=== PATIENT | male | born 1965 | race Caucasian/White ===

== ENCOUNTER → 2017-09-01 15:52 | Outpatient (CLI) | payer MEDICARE, MEDICAID, SELFPAY | PROVIDERS: Family Provider Internal Medicine; PCP Internal Medicine; Visit Provider Urology | DX: Z12.5 Encounter for screening for malignant neoplasm of prostate (principal) | CPT/HCPCS: 36415; 84153; G0103 ==

== ENCOUNTER → 2019-10-10 11:42 | Outpatient (CLI) | payer MEDICARE, MEDICAID, SELFPAY ==
[2019-10-07 10:49] VITALS: BMI 24.1
--- NOTE | 2019-10-10 11:44 | CT_ITS ---
STUDY: CTA OF THE ABDOMINAL AORTA . REASON FOR EXAM: Male, 53 years old. Left Leg edema, r/o May Thurner syndrome. RADIATION DOSAGE (If Supplied By Facility): CTDIvol = ( 14.34 ) mGy, DLP = ( 359.96 ) mGycm TECHNIQUE: Axial CT angiography multi-detector data acquisition was obtained from the iliac crests to the symphysis pubis following intravenous administration of 100cc ISOVUE 370. Axial images and MIP images were reconstructed from the axial data set. Post-processing of the angiographic images was performed, with multiplanar reformation and 3D reconstruction. Individualized dose optimization techniques were used for this CT. TECHNICAL QUALITY: Good COMPARISON: None. Descriptors of Narrowing: None (0%) Mild (< 50%) Moderate (50-70%) Severe (70-90%) Subtotal/Total Occlusion (90-100%) Non-Evaluable (technically non-diagnostic FINDINGS: There is a small hiatal hernia. There is a 2.5 cm x 2 cm hypodense nodule in the anterior aspect of the left lobe of the liver with peripheral enhancement suggestive of hemangioma. Small bilateral renal cysts more prominent on the left side. Small umbilical hernia containing fat. Small to moderate sized left inguinal hernia containing fat. Abdominal aorta: No demonstrated narrowing. Celiac and superior mesenteric arteries: No demonstrated narrowing. Inferior mesenteric artery: No demonstrated narrowing. Right renal artery(arteries): No demonstrated narrowing. Left renal artery(arteries): No demonstrated narrowing. Right common iliac artery: No demonstrated narrowing. There is no evidence of compression of the left common iliac vein by the right common iliac artery. Right external iliac artery: No demonstrated narrowing. Right internal iliac artery: No demonstrated narrowing. Left common iliac artery: No demonstrated narrowing. Left external iliac artery: No demonstrated narrowing. Left internal iliac artery: No demonstrated narrowing. CT/CT ANGIO ABD&PEL W/O&W/DYE IMPRESSION: Normal abdominal aorta There is no evidence of compression of the left common iliac vein by the right common iliac artery.. Electronically Signed: Jorge Gan, at 12:42 EDT , Service support ,
--- NOTE | 2019-10-10 11:44 | VDLE_ITS ---
Reason For Study: Swelling RIGHT LEFT GSV is normal. GSV is normal. CFV is compressible, spontaneous, phasic, CFV is compressible, spontaneous, phasic, competent and demonstrates normal competent, and demonstrates normal augmentation. augmentation. FV is compressible, spontaneous, phasic, FV is compressible, spontaneous, phasic, competent and demonstrates normal competent and demonstrates normal augmentation. augmentation. POP V is compressible, spontaneous, phasic, POP V is compressible, spontaneous, phasic, competent and demonstrates normal competent and demonstrates normal augmentation. augmentation. T/P Trunk is compressible. T/P Trunk is compressible. PTV is compressible. PTV is compressible. RT PerV is compressible. LT PerV is compressible. Procedure Exam performed in department. A preliminary report was called and/or faxed to [facility]. Interpretation Summary Deep veins of the lower extremities are bilaterally patent and compressible segmentally. There is no evidence of deep vein thrombosis on either side. Valvular competence appears intact within the proximal deep venous systems bilaterally. The great saphenous veins appear bilaterally patent and compressible segmentally. Ordering Physician: Kiran Broussard Referring Physician: Taylor Enrique M.D. Performed By: Buddy Springer MD
[2019-10-10 12:48] LABS: Absolute Lymphocyte Count 1.67 X10^3/uL (0.83-4.51); Absolute Neutrophil Count 3.8 X10^3/uL (2.0-7.7); Basophil# 0.05 X10^3/uL; Basophil% 0.8 % (0-1); Eosinophil# 0.04 X10^3/uL; Eosinophils% 0.6 % (0-5); Hematocrit 49.9 % (40-54); Hemoglobin 16.9 g/dL (13.0-16.5); Lymphocyte # 1.67 X10^3/ul (4.0); Lymphocyte % 27.1 % (19-41); Mean Corp Hgb Conc 33.9 g/dL (32-36); Mean Corpuscular Hgb 29.9 pg (27.0-32.0); Mean Corpuscular Volume 88.3 fL (80-94); Mean Platelet Vol. 10.3 fl (6.2-12.0); Monocyte# 0.56 X10^3/uL; Monocyte% 9.1 % (0-10); NRBC Flagged by Analyzer 0 % (0-5); Neutrophil # 3.83 X10^3/uL (2.7-7.7); Neutrophil % 62.1 % (47-70); Platelet Count 300 K/mm3 (150-450); RBC Distribution Width CV 12.7 % (11.6-14.6); RBC Distribution Width SD 40.7 fl (35.1-43.9); Red Blood Count 5.65 M/mm3 (4.6-6.2); White Blood Count 6.2 K/mm3 (4.4-11.0)
[2019-10-10 13:00] LABS: AST(SGOT) 20 U/L (15-37); Alanine Aminotransfer ALT/SGPT 29 U/L (16-61); Albumin, Serum 3.8 g/dL (3.2-5.0); Alkaline Phosphatase 100 U/L (45-117); Anion Gap 3 (5-15); BUN 10 mg/dL (7-18); BUN/Creat Ratio 11.5 RATIO (10-20); Calcium,Total 9.1 mg/dL (8.5-10.1); Chloride 102 mmol/L (98-107); Creatinine, Serum 0.87 mg/dL (0.70-1.30); EST Glomerular Filtration Rate 97 mL/min (>60); Est Glom Filt Rate - Afr Amer 117 mL/min (>60); Globulin 3.7 g/dL (2.2-4.2); Glucose 94 mg/dL (74-106); Potassium 3.9 mmol/L (3.5-5.1); Protein, Total 7.5 g/dL (6.4-8.2); Sodium Level 135 mmol/L (136-145); T4 Total, Thyroxin 12.9 ug/dL (4.5-12.1)
== END ==
PROVIDERS: PCP Internal Medicine; Referring Provider Internal Medicine Cardiovascular Disease; Visit Provider Internal Medicine Cardiovascular Disease
DX: R60.0 Localized edema (principal); I10 Essential (primary) hypertension; Q21.1 Atrial septal defect; Q24.9 Congenital malformation of heart, unspecified
CPT/HCPCS: 36415; 74174; 80053; 84436; 84443; 85025; 93970; Q9967

== ENCOUNTER → 2019-11-08 10:57 | Outpatient (CLI) | payer MEDICARE, MEDICAID, SELFPAY ==
[2019-10-07 10:49] VITALS: BMI 24.1
--- NOTE | 2019-11-08 10:58 | ECHOD_ITS ---
Reason For Study: CONGENITAL HEART DISEASE Procedure This was a 2D Doppler, Color Flow transthoracic echocardiogram. The study was technically difficult. Exam performed in department. Left Ventricle Normal LV size. Left ventricular systolic function is normal. The estimated ejection fraction is 65 %. Diastolic function is indeterminate. No regional wall motion abnormalities noted. Right Ventricle Normal RV size. Normal systolic function. Atria Normal left atrium. Normal right atrium. Probable chiari network. 2D echocardiographic findings compatible with atrial septal defect repair. No doppler evidence for ASD. Bubble contrast study negative for right to left interatrial shunt. Mitral Valve There is no mitral annular calcification. Normal mitral valve. Mild (1+) mitral valve insufficiency. Tricuspid Valve Normal tricuspid valve. Trivial tricuspid valve insufficiency. Right ventricular systolic pressure estimated to be 27 mmHg. Aortic Valve Trisinus/trileaflet aortic valve. Mild focal aortic valve thickening. Pulmonic Valve The pulmonic valve is not well visualized. Trivial pulmonic valve insufficiency. Great Vessels Normal sized aortic root. Pericardium/Pleural No pericardial effusion. MMode/2D Measurements & Calculations RVDd: 3.5 cm Ao root diam: 2.8 cm LAV(MOD-bp): 26.3 ml LAV(MOD-bp) Indexed: 17.1 ml/m2 LAV(MOD-sp2): 17.9 ml LAV(MOD-sp4): 30.8 ml LA dimension(2D): 3.8 cm LA A4 area: 13.7 cm2 RA A4 area: 8.2 cm2 Time Measurements MV dec time: 0.23 sec Doppler Measurements & Calculations MV E max deandre: 76.7 cm/sec Lat Peak E' Deandre: 8.8 cm/sec Med Peak E' Deandre: 5.0 cm/sec MV A max deandre: 85.4 cm/sec E/E' lat: 8.7 E/E' med: 15.2 MV E/A: 0.90 Ao V2 max: 114.6 cm/sec LV V1 max: 110.4 cm/sec PA V2 max: 100.0 cm/sec Ao max P.3 mmHg LV V1 max P.9 mmHg PI end-d deandre: 159.4 cm/sec TR max deandre: 217.3 cm/sec TR max P.9 mmHg Interpretation Summary The study was technically difficult. Left ventricular systolic function is normal. The estimated ejection fraction is 65 %. Probable chiari network. Mild (1+) mitral valve insufficiency. Trivial tricuspid valve insufficiency. Mild focal aortic valve thickening. Trivial pulmonic valve insufficiency. Right ventricular systolic pressure estimated to be 27 mmHg. Diastolic function is indeterminate. 2D echocardiographic findings compatible with atrial septal defect repair. Bubble contrast study negative for right to left interatrial shunt. Ordering Physician: Kiran Broussard Referring Physician: CINTIA ARORA Performed By: Marianna Spencer, SEJALCS, RVT
[2019-11-08 15:09] LABS: Anion Gap 5 (5-15); BUN 13 mg/dL (7-18); BUN/Creat Ratio 16.8 RATIO (10-20); Calcium,Total 9.1 mg/dL (8.5-10.1); Chloride 105 mmol/L (98-107); Creatinine, Serum 0.77 mg/dL (0.70-1.30); EST Glomerular Filtration Rate 111 mL/min (>60); Est Glom Filt Rate - Afr Amer 134 mL/min (>60); Glucose 83 mg/dL (74-106); Potassium 3.8 mmol/L (3.5-5.1); Sodium Level 141 mmol/L (136-145); T4 Total, Thyroxin 10.7 ug/dL (4.5-12.1); Thyroid Stim Hormone (TSH) 0.64 uIU/mL (0.358-3.74)
== END ==
PROVIDERS: PCP Internal Medicine; Referring Provider Internal Medicine Cardiovascular Disease; Visit Provider Internal Medicine Cardiovascular Disease
DX: Q24.9 Congenital malformation of heart, unspecified (principal); I10 Essential (primary) hypertension; R60.0 Localized edema; Q21.1 Atrial septal defect
CPT/HCPCS: 36415; 80048; 84436; 84443; 93306

== ENCOUNTER → 2019-11-18 11:12 | Outpatient (CLI) | payer MEDICARE, SELFPAY ==
[2019-11-18 10:09] VITALS: BMI 25.2
[2019-11-18 13:26] LABS: Anion Gap 5 (5-15); BUN 12 mg/dL (7-18); BUN/Creat Ratio 15.7 RATIO (10-20); Calcium,Total 9.1 mg/dL (8.5-10.1); Chloride 105 mmol/L (98-107); Creatinine, Serum 0.77 mg/dL (0.70-1.30); EST Glomerular Filtration Rate 112 mL/min (>60); Est Glom Filt Rate - Afr Amer 135 mL/min (>60); Glucose 84 mg/dL (74-106); Potassium 3.5 mmol/L (3.5-5.1); Sodium Level 140 mmol/L (136-145)
== END ==
PROVIDERS: PCP Internal Medicine; Referring Provider Internal Medicine Cardiovascular Disease; Visit Provider Internal Medicine Cardiovascular Disease
DX: I10 Essential (primary) hypertension (principal); Q24.9 Congenital malformation of heart, unspecified; Q21.1 Atrial septal defect; R60.9 Edema, unspecified
CPT/HCPCS: 36415; 80048

== ENCOUNTER → 2020-01-31 10:49 | Outpatient (CLI) | payer MEDICARE, SELFPAY ==
[2019-11-18 10:09] VITALS: BMI 25.2
--- NOTE | 2020-01-31 10:49 | ART_ITS ---
Reason For Study: Leg swelling Procedure A bilateral lower extremity continuous wave Doppler with analog waveform analysis,segmental pressures,and ankle brachial indexes without exercise. Left Segmental Pressures Left brachial= 119mmHg. Left posterior tibial artery = 148mmHg. Left dorsalis pedis artery = 146mmHg. Left digit = 110 mmHg. The left dorsalis pedis waveforms are triphasic. The left posterior tibial artery waveforms are triphasic. Right Segmental Pressures Right brachial= 118mmHg. Right posterior tibial artery = 115mmHg. Right dorsalis pedis artery = 120mmHg. Right digit = 70 mmHg. The right dorsalis pedis waveforms are triphasic. The right posterior tibial artery waveforms are triphasic. Indices The right ankle brachial index by the dorsalis pedis is 1.01. The right ankle brachial index by the posterior tibial artery is 0.97. The right digital-brachial index is 0.59. The left ankle brachial index by the dorsalis pedis is 1.23. The left ankle brachial index by the posterior tibial artery is 1.24. The left digital-brachial index is 0.92. Interpretation Summary Normal bilateral lower extremity ankle-brachial indices and triphasic Doppler waveforms at rest Normal bilateral lower extremity volume pulse recordings with maintained digital waveforms bilaterally Ordering Physician: Tom Herbert Referring Physician: Taylor Enrique M.D. Performed By: Xochilt Olivas RVT and Student
[2020-01-31 13:13] LABS: ALB/GLOB Ratio 1.1 RATIO (0.9-2.4); AST(SGOT) 10 U/L (15-37); Alanine Aminotransfer ALT/SGPT 24 U/L (16-61); Albumin, Serum 3.8 g/dL (3.2-5.0); Alkaline Phosphatase 95 U/L (45-117); Anion Gap 4 (5-15); BUN 15 mg/dL (7-18); BUN/Creat Ratio 17.9 RATIO (10-20); Calcium,Total 8.9 mg/dL (8.5-10.1); Chloride 104 mmol/L (98-107); Creatinine, Serum 0.84 mg/dL (0.70-1.30); EST Glomerular Filtration Rate 101 mL/min (>60); Est Glom Filt Rate - Afr Amer 122 mL/min (>60); Globulin 3.5 g/dL (2.2-4.2); Glucose 95 mg/dL (74-106); Potassium 3.5 mmol/L (3.5-5.1); Protein, Total 7.3 g/dL (6.4-8.2); Sodium Level 139 mmol/L (136-145)
== END ==
PROVIDERS: PCP Internal Medicine; Referring Provider Surgery; Visit Provider Surgery
DX: M79.661 Pain in right lower leg (principal); M79.662 Pain in left lower leg; M79.89 Other specified soft tissue disorders; I10 Essential (primary) hypertension; Q24.9 Congenital malformation of heart, unspecified
CPT/HCPCS: 36415; 80053; 93923

== ENCOUNTER 2020-02-24 13:00 | Outpatient (RCR) | payer MEDICARE, MEDICAID, SELFPAY ==
[2019-11-18 10:09] VITALS: BMI 25.2
[2020-02-14 10:31] VITALS: BP 129/73; PULSE 78; RESP 16; TEMP 36.8; BMI 24.1
--- NOTE | 2020-02-14 12:23 | PCM.WC.HP ---
(1) Leg swelling Status: Chronic Current Visit: Yes Code(s): M79.89 - Other specified soft tissue disorders (2) Leg edema Status: Chronic Current Visit: Yes Code(s): R60.0 - Localized edema (3) Atrial septal defect Status: Chronic Current Visit: No Code(s): Q21.1 - Atrial septal defect (4) Cervical spine disease Status: Chronic Current Visit: No Code(s): M48.9 - Spondylopathy, unspecified (5) Developmental disability Status: Chronic Current Visit: Yes Code(s): F89 - Unspecified disorder of psychological development (6) Barretts esophagus Status: Chronic Current Visit: No Code(s): K22.70 - Milligan's esophagus without dysplasia (7) Congenital heart disease Status: Chronic Current Visit: No Code(s): Q24.9 - Congenital malformation of heart, unspecified Comment: Fixed hole in heart 1978 (8) Essential hypertension Status: Chronic Current Visit: No Code(s): I10 - Essential (primary) hypertension History of Present Illness Date of Service: 02/14/20 Chief Complaint: Bilateral lower extremity swelling and edema History of Wound: This is a 54-year-old white male with mild developmental disabilities. He is accompanied by his sister, Marika. The patient has suffered from chronic swelling and edema in his lower extremities for many months. It has become progressively more severe. Only several weeks ago, the swelling and edema were so severe that fluid was actually dripping from the pores of his lower extremities. The patient has been referred by his primary care physician, Dr. Kiran Broussard. Dr. Broussard has recently increased the patient's diuretic medications, which have resulted in some improvement in the lower extremity swelling. It is ascertained that the patient often sleeps in a recliner with his legs in a dependent position. He is not very active. During daytime hours, he receives care in day-hab, where he spends long hours sitting ideally. He does have attentive family members, including 2 sisters, who often accompany him on leisurely walks. Past Medical History Past Medical History: Chronic Problems (Last Reviewed 11/18/19 @ 10:15 by Marcy De La Cruz) Leg swelling (Chronic) Leg edema (Chronic) Atrial septal defect (Chronic) Cervical spine disease (Chronic) Developmental disability (Chronic) Barretts esophagus (Chronic) Congenital heart disease (Chronic) Fixed hole in heart 1978 Essential hypertension (Chronic) Past Medical History: The patient suffers from congenital heart disease, and atrial septal defect, hypertension, Milligan's esophagus, and developmental disabilities. His history is said to be negative for myocardial infarction, diabetes mellitus, cerebrovascular accident, pulmonary disease, renal disease, hyperlipidemia, and thyroid disease. Surgical History: - - The patient has previously undergone atrial septal defect repair and cervical spinal surgery. Allergies/Adverse Reactions: Allergies Penicillins Adverse Reaction (Severe, Verified 02/14/20 10:49) SOB Home Medications: Ambulatory Orders Medication Instructions Recorded cholecalciferol (vitamin D3) 25 25 mcg PO DAILY 10/04/19 mcg (1,000 unit) capsule esomeprazole magnesium 40 mg 40 mg PO DAILY 10/04/19 capsule,delayed release fluticasone propionate 50 1 spray INTRANASAL DAILY 10/04/19 mcg/actuation nasal spray,suspension metoprolol tartrate 50 1 tab PO DAILY 10/04/19 mg-hydrochlorothiazide 25 mg tablet montelukast 10 mg tablet 10 mg PO QHS 10/04/19 multivitamin 1 tab PO DAILY 10/04/19 potassium chloride 10 mEq 10 meq PO DAILY tab 11/18/19 tablet,extended release torsemide 20 mg tablet 20 mg PO DAILY #30 tab 02/02/20 - Family History Paternal Family History: Family History (Last Reviewed 11/18/19 @ 10:15 by Marcy De La Cruz) Mother Hypertension Father Heart disease Sister CVA (cerebral vascular accident) - - The patient's father is 84 years of age and suffers from cardiac disease. The patient's mother at the age of 70 from a cerebrovascular accident. Social History: The patient lives alone, no family members are very attentive to his needs. He does not smoke or consume alcoholic beverages. Lives: Alone Smoking Status: Never smoker Tobacco Use: Non-smoker Alcohol: None Drugs: None Review of Systems Constitutional: Denies: Chills, Fever, Weight Change Eyes: Denies: Pain, Vision Change HEENT: Denies: Difficulty Hearing, Difficulty Swallowing, Sinus Congestion Cardiovascular: Denies: Chest Pain, Palpitations Respiratory: Denies: Cough, Shortness of Breath Gastrointestinal: Denies: Diarrhea, Nausea, Vomiting Genitourinary: Denies: Dysuria, Hematuria Neurological: Reports: - - The patient suffers from developmental disabilities. Endocrine: Denies: Heat/ Cold Intolerance, Polydipsia, Polyuria Hematologic/ Lymphatic: Denies: Easy Bruising, Easy Bleeding - Physical Exam Vital Signs Temp Pulse Resp BP 98.3 F 78 16 129/73 H 02/14/20 10:31 02/14/20 10:31 02/14/20 10:31 02/14/20 10:31 General: Alert, Oriented x3, Cooperative, No apparent distress, Well developed, Well nourished, - - The patient is pleasant and cooperative. While he does suffer from developmental disabilities, he is interactive and appropriate. He responds appropriately to verbal questioning. He appears to be relatively high functioning. The patient is short in stature. HEENT: Atraumatic, PERRLA, EOMI, Normocephalic Oral: Moist Mucosa Neck: Supple, No JVD, Negative Carotid Bruits, Negative Hepatojugular Reflux, No Nodes, No Nuchal Rigidity, Trachea Midline Lungs: Clear to auscultation, Normal air movement, No rhonchi, No wheeze, No rales Cardiovascular: Regular rate, Regular Rhythm, Normal S1, Normal S2, No murmurs Abdomen: Soft, Non Tender, Non-Distended Extremities: No clubbing, No cyanosis, No Calf Tenderness, - - Moderate swelling and edema are noted in the patient's lower extremities bilaterally. Scattered small varicosities are noted, particularly near the ankles. There are no open wounds or ulcerations. There are no significant skin changes. Skin: No rashes, No breakdown Wound Measurements and Assessment WC - Nurse 1 - General Ulcer Measurement Start: 02/14/20 10:30 Freq: Status: Active Protocol: Activity Type Activity Date Activity User E-Sign Co-Sign Detail Recorded Client Recorded Date Recorded By Document 02/14/20 10:31 [facility] [id number] 02/14/20 10:45 [facility] 02/14/20 10:31 Wound Center Nurse 1 [Edema Assessment] -Lower Limb Edema Present Yes -Right Calf (cm) 33.6 -Right Ankle (cm) 24.2 -Left Calf (cm) 33 -Left Ankle (cm) 27.5 WC - Nurse 2 - General Ulcer CM Notes Start: 02/14/20 10:30 Freq: Status: Active Protocol: Activity Type Activity Date Activity User E-Sign Co-Sign Detail Recorded Client Recorded Date Recorded By Document 02/14/20 11:01 PL [id number] 02/14/20 11:12 PL 02/14/20 11:01 Pain Scale: 0-10 Numeric [Pain] -Is Patient Pain Free? Yes WC - Nurse 3 - General Ulcer D/C NN Start: 02/14/20 10:30 Freq: Status: Active Protocol: Activity Type Activity Date Activity User E-Sign Co-Sign Detail Recorded Client Recorded Date Recorded By Document 02/14/20 11:32 DL [id number] 02/14/20 11:33 DL 02/14/20 11:32 Wound Care Nurse 3 [Compression Applied] Left -Lotion applied to leg before No compression wrap -Multi-Layered Wrap Application 3M Double Layer Right -Lotion applied to leg before No compression wrap -Multi-Layered Wrap Application 3M Double Layer [Post Procedure Tolerated] -Treatment Response Procedure Tolerated Well Pain Scale: 0-10 Numeric [Pain] -Is Patient Pain Free? Yes - Visit Discharge [Visit Discharge Information] -Discharge Condition Stable -Ambulatory Status Ambulatory -Transportation Private Auto Musculoskeletal: No Muscle Wasting Neurological: Cranial nerves II-XII grossly intact, Neuro grossly intact Psych/Mental Status: Normal Affect, Appropriate, - - Patient is appropriate and conversant. He does appear to have mild developmental disabilities. Debridement Note Post-Debridement Measurements/Treatment WC - Nurse 2 - General Ulcer CM Notes Start: 02/14/20 10:30 Freq: Status: Active Protocol: Activity Type Activity Date Activity User E-Sign Co-Sign Detail Recorded Client Recorded Date Recorded By Document 02/14/20 11:01 PL [id number] 02/14/20 11:12 PL 02/14/20 11:01 Pain Scale: 0-10 Numeric Is Patient Pain Free? Yes - Nurse 3 - General Ulcer D/C NN Start: 02/14/20 10:30 Freq: Status: Active Protocol: Activity Type Activity Date Activity User E-Sign Co-Sign Detail Recorded Client Recorded Date Recorded By Document 02/14/20 11:32 DL [id number] 02/14/20 11:33 DL 02/14/20 11:32 Wound Care Nurse 3 Left -Lotion applied to leg before No compression wrap -Multi-Layered Wrap Application 3M Double Layer Right -Lotion applied to leg before No compression wrap -Multi-Layered Wrap Application 3M Double Layer Treatment Response Procedure Tolerated Well Pain Scale: 0-10 Numeric Is Patient Pain Free? Yes WC - Visit Discharge Discharge Condition Stable Ambulatory Status Ambulatory Transportation Private Auto No debridement was completed today - There are no open wounds or ulcerations. Assessment/Plan Active Problems (Last Reviewed 11/18/19 @ 10:15 by Marcy De La Cruz) Leg swelling (Chronic) Leg edema (Chronic) Developmental disability (Chronic) Assessment: This is a 54-year-old male with mild developmental disabilities. He presents with swelling and edema in his lower extremities, which has been present for approximately 8 to 9 months. It has recently become more severe, and only recently such that fluid was noted to be dripping from the pores of his lower limbs. The patient typically sleeps in a recliner at night, with his legs in a dependent position. He is not very active. He spends long hours sitting ideally each day at his day-hab, where caregivers oversee his activities and wellbeing. A recent noninvasive lower extremity venous study revealed no evidence of lower extremity venous thrombosis. However, valvular competence was not assessed. A noninvasive lower extremity arterial study reveals no evidence of significant arterial occlusive disease in the patient's lower extremities. An echocardiogram has been performed, which reveals an ejection fraction of approximately 65% with no hemodynamically significant valvular heart disease. Given that the patient has previously undergone atrial septal defect repair, there is no obvious evidence of inter-arterial shunting. A CT scan of the patient's pelvis reveals no evidence of May-Thurner syndrome, with no evidence of left common iliac vein compression. Laboratory values from October 10, 2019, have been reviewed, with results as follows White blood count 6.2, hemoglobin 16.9, hematocrit 49.9, platelets 300,000. Chemistries from January 31, 2020, were as follows: Sodium 139, potassium 3.5, chloride 104, BUN 15, creatinine 0.84, glucose 95, calcium 8.9, total bilirubin 0.20, AST 10, ALT 24, total protein 7.3, albumin 3.8. Plan: We are to implement standard conservative treatment measures relative to the patient's lower extremity swelling and edema. It is likely that the patient's lower extremity swelling and edema is related to chronic dependency. The patient has been advised to sleep on a flat mattress at night. Leg elevation is to be implemented even during daytime hours. Leg elevation is to be to heart level, or higher. This should be implemented as much as possible. Prolonged idle sitting has been discouraged. Activity has been encouraged, allowing for the recruitment of the calf and foot muscle pumps, which will enhance venous and lymphatic return to the heart. Weight optimization has been recommended. We are to implement compression to the lower extremities initially by means of 3M 2 layer compression wraps, which will be applied twice weekly. We will reevaluate the patient in 1 week to assess his progress. Ultimately, once the swelling in the lower extremities has been minimized, we will consider implementing some form of long-term compression to the lower extremities, such as graduated compression stockings of 20 to 30 mmHg compression, or CircAid compression garments. It is anticipated that the patient will respond to the aforementioned measures. However, consideration may be given to the use of mechanical pneumatic compression pumps, if necessary. Influenza vaccine was not administered today. The patient is not a smoker. He stands 5 feet 1 inches tall. He weighs 128 pounds. His BMI is 24.2, which is normal.
[2020-02-17 13:17] VITALS: BP 126/71; PULSE 88; RESP 16; TEMP 36.4; BMI 24.1
[2020-02-21 09:19] VITALS: BP 121/71; PULSE 85; RESP 18; TEMP 36; BMI 24.1
--- NOTE | 2020-02-21 09:46 | PCM.WC.HP ---
(1) Leg swelling Status: Chronic Current Visit: Yes Code(s): M79.89 - Other specified soft tissue disorders (2) Leg edema Status: Chronic Current Visit: Yes Code(s): R60.0 - Localized edema (3) Atrial septal defect Status: Chronic Current Visit: No Code(s): Q21.1 - Atrial septal defect (4) Cervical spine disease Status: Chronic Current Visit: No Code(s): M48.9 - Spondylopathy, unspecified (5) Developmental disability Status: Chronic Current Visit: Yes Code(s): F89 - Unspecified disorder of psychological development (6) Barretts esophagus Status: Chronic Current Visit: No Code(s): K22.70 - Milligan's esophagus without dysplasia (7) Congenital heart disease Status: Chronic Current Visit: No Code(s): Q24.9 - Congenital malformation of heart, unspecified Comment: Fixed hole in heart 1978 (8) Essential hypertension Status: Chronic Current Visit: No Code(s): I10 - Essential (primary) hypertension History of Present Illness Date of Service: 02/21/20 Chief Complaint: Bilateral lower extremity swelling and edema History of Wound: This is a 54-year-old white male with mild developmental disabilities. He is accompanied by his sister, Marika. The patient has suffered from chronic swelling and edema in his lower extremities for many months. It has become progressively more severe. Only several weeks ago, the swelling and edema were so severe that fluid was actually dripping from the pores of his lower extremities. The patient has been referred by his primary care physician, Dr. Kiran Broussard. Dr. Broussard has recently increased the patient's diuretic medications, which have resulted in some improvement in the lower extremity swelling. It is ascertained that the patient often sleeps in a recliner with his legs in a dependent position. He is not very active. During daytime hours, he receives care in day-hab, where he spends long hours sitting ideally. He does have attentive family members, including 2 sisters, who often accompany him on leisurely walks. Past Medical History Past Medical History: Chronic Problems (Last Reviewed 11/18/19 @ 10:15 by Marcy De La Cruz) Leg swelling (Chronic) Leg edema (Chronic) Atrial septal defect (Chronic) Cervical spine disease (Chronic) Developmental disability (Chronic) Barretts esophagus (Chronic) Congenital heart disease (Chronic) Fixed hole in heart 1978 Essential hypertension (Chronic) Surgical History: - - The patient has previously undergone atrial septal defect repair and cervical spinal surgery. Allergies/Adverse Reactions: Allergies Penicillins Adverse Reaction (Severe, Verified 02/14/20 10:49) SOB Home Medications: Ambulatory Orders Medication Instructions Recorded cholecalciferol (vitamin D3) 25 25 mcg PO DAILY 10/04/19 mcg (1,000 unit) capsule esomeprazole magnesium 40 mg 40 mg PO DAILY 10/04/19 capsule,delayed release fluticasone propionate 50 1 spray INTRANASAL DAILY 10/04/19 mcg/actuation nasal spray,suspension metoprolol tartrate 50 1 tab PO DAILY 10/04/19 mg-hydrochlorothiazide 25 mg tablet montelukast 10 mg tablet 10 mg PO QHS 10/04/19 multivitamin 1 tab PO DAILY 10/04/19 potassium chloride 10 mEq 10 meq PO DAILY tab 11/18/19 tablet,extended release torsemide 20 mg tablet 20 mg PO DAILY #30 tab 02/02/20 - Family History Paternal Family History: Family History (Last Reviewed 11/18/19 @ 10:15 by Marcy De La Cruz) Mother Hypertension Father Heart disease Sister CVA (cerebral vascular accident) - - The patient's father is 84 years of age and suffers from cardiac disease. The patient's mother at the age of 70 from a cerebrovascular accident. Lives: Alone Smoking Status: Never smoker Tobacco Use: Non-smoker Alcohol: None Drugs: None Review of Systems Constitutional: Denies: Chills, Fever, Weight Change Eyes: Denies: Pain, Vision Change HEENT: Denies: Difficulty Hearing, Difficulty Swallowing, Sinus Congestion Cardiovascular: Denies: Chest Pain, Palpitations Respiratory: Denies: Cough, Shortness of Breath Gastrointestinal: Denies: Diarrhea, Nausea, Vomiting Genitourinary: Denies: Dysuria, Hematuria Endocrine: Denies: Heat/ Cold Intolerance, Polydipsia, Polyuria Hematologic/ Lymphatic: Denies: Easy Bruising, Easy Bleeding - Physical Exam Vital Signs Temp Pulse Resp BP 96.8 F L 85 18 121/71 H 02/21/20 09:19 02/21/20 09:19 02/21/20 09:19 02/21/20 09:19 General: Alert, Oriented x3, Cooperative, No apparent distress, Well developed, Well nourished, - - The patient suffers from mild developmental disability. He is, however, alert, conversant, and cooperative. HEENT: Atraumatic, PERRLA, EOMI, Normocephalic Oral: Moist Mucosa Neck: No JVD Lungs: Normal air movement Abdomen: Non-Distended Extremities: No clubbing, No cyanosis, No Calf Tenderness, - - There are no open wounds or ulcerations in the patient's lower extremities. There are no significant skin changes. The swelling and edema in the lower extremities is markedly diminished. At this juncture, there is only slight swelling and edema. There has been significant improvement within the last week. Skin: No rashes, No breakdown Wound Measurements and Assessment WC - Nurse 1 - General Ulcer Measurement Start: 02/14/20 10:30 Freq: Status: Active Protocol: Activity Type Activity Date Activity User E-Sign Co-Sign Detail Recorded Client Recorded Date Recorded By Document 02/21/20 09:19 PL [id number] 02/21/20 09:28 PL 02/21/20 09:19 Wound Center Nurse 1 [Edema Assessment] -Right Calf (cm) 33 -Point of measurement (cm from the 27 medial instep) -Right Ankle (cm) 22 -Point of Measurement (cm from the 12 medial instep) -Left Calf (cm) 31 -Point of measurement (cm from the 23 medial instep) -Left Ankle (cm) 22.5 -Point of Measurement (cm from the 11 medial instep) Musculoskeletal: No Muscle Wasting Neurological: Cranial nerves II-XII grossly intact, Neuro grossly intact Psych/Mental Status: Normal Affect, Appropriate, - - Mild developmental disability is noted. Debridement Note Post-Debridement Measurements/Treatment WC - Nurse 2 - General Ulcer CM Notes Start: 02/14/20 10:30 Freq: Status: Active Protocol: Activity Type Activity Date Activity User E-Sign Co-Sign Detail Recorded Client Recorded Date Recorded By Document 02/14/20 11:01 PL [id number] 02/14/20 11:12 PL 02/14/20 11:01 Pain Scale: 0-10 Numeric Is Patient Pain Free? Yes WC - Nurse 3 - General Ulcer D/C NN Start: 02/14/20 10:30 Freq: Status: Active Protocol: Activity Type Activity Date Activity User E-Sign Co-Sign Detail Recorded Client Recorded Date Recorded By Document 02/14/20 11:32 DL [id number] 02/14/20 11:33 DL Document 02/17/20 13:17 DL [id number] 02/17/20 13:22 DL 02/14/20 02/17/20 11:32 13:17 Wound Care Nurse 3 Left -Lotion applied to leg before No compression wrap -Multi-Layered Wrap Application Multi-Layer Comp - Left ($) -Multi-Layered Wrap Application 3M Double Layer Right -Lotion applied to leg before No compression wrap -Multi-Layered Wrap Application Multi-Layer Comp - Right ($ ) -Multi-Layered Wrap Application 3M Double Layer Treatment Response Procedure Procedure Tolerated Well Tolerated Well Pain Scale: 0-10 Numeric Is Patient Pain Free? Yes Yes WC - Visit Discharge Discharge Condition Stable Stable Ambulatory Status Ambulatory Ambulatory Transportation Private Auto Private Auto Accompanied by sister No debridement was completed today - There are no open wounds or ulcerations. Assessment/Plan Active Problems (Last Reviewed 11/18/19 @ 10:15 by Marcy De La Cruz) Leg swelling (Chronic) Leg edema (Chronic) Developmental disability (Chronic) Assessment: This is a 54-year-old male with mild developmental disabilities. He presents with swelling and edema in his lower extremities, which has been present for approximately 8 to 9 months. It has recently become more severe, and only recently such that fluid was noted to be dripping from the pores of his lower limbs. The patient typically sleeps in a recliner at night, with his legs in a dependent position. He is not very active. He spends long hours sitting ideally each day at his day-hab, where caregivers oversee his activities and wellbeing. A recent noninvasive lower extremity venous study revealed no evidence of lower extremity venous thrombosis. However, valvular competence was not assessed. A noninvasive lower extremity arterial study reveals no evidence of significant arterial occlusive disease in the patient's lower extremities. An echocardiogram has been performed, which reveals an ejection fraction of approximately 65% with no hemodynamically significant valvular heart disease. Given that the patient has previously undergone atrial septal defect repair, there is no obvious evidence of inter-arterial shunting. A CT scan of the patient's pelvis reveals no evidence of May-Thurner syndrome, with no evidence of left common iliac vein compression. Laboratory values from October 10, 2019, have been reviewed, with results as follows White blood count 6.2, hemoglobin 16.9, hematocrit 49.9, platelets 300,000. Chemistries from January 31, 2020, were as follows: Sodium 139, potassium 3.5, chloride 104, BUN 15, creatinine 0.84, glucose 95, calcium 8.9, total bilirubin 0.20, AST 10, ALT 24, total protein 7.3, albumin 3.8. Plan: We are to continue standard conservative treatment measures relative to the patient's lower extremity swelling and edema. It is likely that the patient's lower extremity swelling and edema is related to chronic dependency. The patient has been advised to sleep on a flat mattress at night. Leg elevation is to be implemented even during daytime hours. Leg elevation is to be to heart level, or higher. This should be implemented as much as possible. Prolonged idle sitting has been discouraged. Activity has been encouraged, allowing for the recruitment of the calf and foot muscle pumps, which will enhance venous and lymphatic return to the heart. Weight optimization has been recommended. We are to continue compression to the lower extremities initially by means of 3M 2 layer compression wraps, which will be applied twice weekly. We will reevaluate the patient in 1 week to assess his progress. If he continues to do well, it is anticipated that we will prescribe graduated compression stockings of 20 to 30 mmHg compression, knee-high length, within the next week or 2. This form of compression will likely be of benefit to the patient long-term, as well as the aforementioned measures already implemented. Influenza vaccine was not administered today. The patient is not a smoker. He stands 5 feet 1 inches tall. He weighs 128 pounds. His BMI is 24.2, which is normal.
[2020-02-24 13:56] VITALS: BP 125/72; PULSE 85; RESP 18; TEMP 36.4; BMI 24.1
== END 2020-02-27 23:59 ==
LOC: WC 13:00
PROVIDERS: PCP Internal Medicine; Referring Provider Internal Medicine Cardiovascular Disease; Visit Provider Surgery
DX: M79.89 Other specified soft tissue disorders (principal); R60.0 Localized edema; I10 Essential (primary) hypertension; Q21.1 Atrial septal defect; Q24.9 Congenital malformation of heart, unspecified; K22.70 Barrett's esophagus without dysplasia; Z79.899 Other long term (current) drug therapy
CPT/HCPCS: 11042; 29581; 99212; 99213; G0463

== ENCOUNTER 2020-03-13 11:00 | Outpatient (RCR) | payer MEDICARE, MEDICAID, SELFPAY ==
[2020-02-28 00:49] VITALS: BP 125/72; PULSE 85; RESP 18; TEMP 36.4
[2020-02-28 11:03] VITALS: BP 119/64; PULSE 79; RESP 16; TEMP 36.1; BMI 24.1
--- NOTE | 2020-02-28 11:27 | HP.PCM_ITS ---
(1) Leg swelling Status: Chronic Current Visit: Yes Code(s): M79.89 - Other specified soft tissue disorders (2) Leg edema Status: Chronic Current Visit: Yes Code(s): R60.0 - Localized edema (3) Atrial septal defect Status: Chronic Current Visit: No Code(s): Q21.1 - Atrial septal defect (4) Cervical spine disease Status: Chronic Current Visit: No Code(s): M48.9 - Spondylopathy, unspecified (5) Developmental disability Status: Chronic Current Visit: Yes Code(s): F89 - Unspecified disorder of psychological development (6) Barretts esophagus Status: Chronic Current Visit: No Code(s): K22.70 - Milligan's esophagus without dysplasia (7) Congenital heart disease Status: Chronic Current Visit: No Code(s): Q24.9 - Congenital malformation of heart, unspecified Comment: Fixed hole in heart 1978 (8) Essential hypertension Status: Chronic Current Visit: No Code(s): I10 - Essential (primary) hypertension History of Present Illness Date of Service: 02/28/20 Chief Complaint: Bilateral lower extremity swelling and edema History of Wound: This is a 54-year-old white male with mild developmental disabilities. He is accompanied by his sister, Marika. The patient has suffered from chronic swelling and edema in his lower extremities for many months. It has become progressively more severe. Only several weeks prior to presentation, the swelling and edema were so severe that fluid was actually dripping from the pores of his lower extremities. The patient was referred by his primary care physician, Dr. Kiran Broussard. Dr. Broussard had recently increased the patient's diuretic medications, which resulted in some improvement in the lower extremity swelling. It is ascertained that the patient often sleeps in a recliner with his legs in a dependent position. He is not very active. During daytime hours, he receives care in day-hab, where he spends long hours sitting ideally. He does have attentive family members, including 2 sisters, who often accompany him on leisurely walks. Past Medical History Past Medical History: Chronic Problems (Last Reviewed 11/18/19 @ 10:15 by Marcy De La Cruz) Leg swelling (Chronic) Leg edema (Chronic) Atrial septal defect (Chronic) Cervical spine disease (Chronic) Developmental disability (Chronic) Barretts esophagus (Chronic) Congenital heart disease (Chronic) Fixed hole in heart 1978 Essential hypertension (Chronic) Surgical History: - - The patient has previously undergone atrial septal defect repair and cervical spinal surgery. Allergies/Adverse Reactions: Allergies Penicillins Adverse Reaction (Severe, Verified 02/14/20 10:49) SOB Home Medications: Ambulatory Orders Medication Instructions Recorded cholecalciferol (vitamin D3) 25 25 mcg PO DAILY 10/04/19 mcg (1,000 unit) capsule esomeprazole magnesium 40 mg 40 mg PO DAILY 10/04/19 capsule,delayed release fluticasone propionate 50 1 spray INTRANASAL DAILY 10/04/19 mcg/actuation nasal spray,suspension metoprolol tartrate 50 1 tab PO DAILY 10/04/19 mg-hydrochlorothiazide 25 mg tablet montelukast 10 mg tablet 10 mg PO QHS 10/04/19 multivitamin 1 tab PO DAILY 10/04/19 potassium chloride 10 mEq 10 meq PO DAILY tab 11/18/19 tablet,extended release torsemide 20 mg tablet 20 mg PO DAILY #30 tab 02/27/20 - Family History Paternal Family History: Family History (Last Reviewed 11/18/19 @ 10:15 by Marcy De La Cruz) Mother Hypertension Father Heart disease Sister CVA (cerebral vascular accident) - - The patient's father is 84 years of age and suffers from cardiac disease. The patient's mother at the age of 70 from a cerebrovascular accident. Smoking Status: Never smoker Tobacco Use: Non-smoker Review of Systems Constitutional: Reports: - - Patient suffers from mild developmental disabilities. Denies: Chills, Fever, Weight Change Eyes: Denies: Pain, Vision Change HEENT: Denies: Difficulty Hearing, Difficulty Swallowing, Sinus Congestion Cardiovascular: Denies: Chest Pain, Palpitations Respiratory: Denies: Cough, Shortness of Breath Gastrointestinal: Denies: Diarrhea, Nausea, Vomiting Genitourinary: Denies: Dysuria, Hematuria Endocrine: Denies: Heat/ Cold Intolerance, Polydipsia, Polyuria Hematologic/ Lymphatic: Denies: Easy Bruising, Easy Bleeding - Physical Exam Vital Signs Temp Pulse Resp BP 96.9 F L 79 16 119/64 02/28/20 11:03 02/28/20 11:03 02/28/20 11:03 02/28/20 11:03 General: Alert, Oriented x3, Cooperative, No apparent distress, Well developed, Well nourished, - - Patient suffers from mild developmental disabilities HEENT: Atraumatic, PERRLA, EOMI, Normocephalic Oral: Moist Mucosa Neck: No JVD Lungs: Normal air movement Abdomen: Non-Distended Extremities: No clubbing, No cyanosis, No Calf Tenderness, - - There is no significant swelling or edema in the patient's lower extremities. There are no significant skin changes or abnormalities. There is no evidence of cellulitis or other infectious etiologies. Skin: No rashes Wound Measurements and Assessment WC - Nurse 1 - General Ulcer Measurement Start: 02/28/20 10:53 Freq: Status: Active Protocol: Activity Type Activity Date Activity User E-Sign Co-Sign Detail Recorded Client Recorded Date Recorded By Document 02/28/20 11:03 [facility] [id number] 02/28/20 11:07 [facility] 02/28/20 11:03 Wound Center Nurse 1 [Edema Assessment] -Right Calf (cm) 32 -Right Ankle (cm) 21.7 -Left Calf (cm) 31.5 -Left Ankle (cm) 21.5 Neurological: Cranial nerves II-XII grossly intact, Neuro grossly intact Psych/Mental Status: Normal Affect, - - The patient is alert, conversant, and interactive. Mild developmental disabilities are noted. Debridement Note No debridement was completed today - There are no open wounds or ulcerations. Assessment/Plan Active Problems (Last Reviewed 11/18/19 @ 10:15 by Marcy De La Cruz) Leg swelling (Chronic) Leg edema (Chronic) Developmental disability (Chronic) Assessment: This is a 54-year-old male with mild developmental disabilities. He presented with swelling and edema in his lower extremities, which had been present for approximately 8 to 9 months. It recently become more severe, and only recently such that fluid was noted to be dripping from the pores of his lower limbs. The patient typically sleeps in a recliner at night, with his legs in a dependent position. He is not very active. He spends long hours sitting ideally each day at his day-hab, where caregivers oversee his activities and wellbeing. A recent noninvasive lower extremity venous study revealed no evidence of lower extremity venous thrombosis. However, valvular competence was not assessed. A noninvasive lower extremity arterial study reveals no evidence of significant arterial occlusive disease in the patient's lower extremities. An echocardiogram was performed, which revealed an ejection fraction of approximately 65% with no hemodynamically significant valvular heart disease. Given that the patient has previously undergone atrial septal defect repair, there was no obvious evidence of inter-arterial shunting. A CT scan of the patient's pelvis reveals no evidence of May-Thurner syndrome, with no evidence of left common iliac vein compression. Laboratory values from October 10, 2019, have been reviewed, with results as follows White blood count 6.2, hemoglobin 16.9, hematocrit 49.9, platelets 300,000. Chemistries from January 31, 2020, were as follows: Sodium 139, potassium 3.5, chloride 104, BUN 15, creatinine 0.84, glucose 95, calcium 8.9, total bilirubin 0.20, AST 10, ALT 24, total protein 7.3, albumin 3.8. Plan: We are to continue standard conservative treatment measures relative to the patient's lower extremity swelling and edema. At this juncture, the patient appears to be doing well, with little or no swelling noted in his lower extremities. It is likely that the patient's lower extremity swelling and edema is related to chronic dependency. The patient has been advised to sleep on a flat mattress at night. Leg elevation is to be continued even during daytime hours. Leg elevation is to be to heart level, or higher. This should be implemented as much as possible. Prolonged idle sitting has been discouraged. Activity has been encouraged, allowing for the recruitment of the calf and foot muscle pumps, which will enhance venous and lymphatic return to the heart. Weight optimization has been recommended. We are to continue compression to the lower extremities, and the patient has been provided a prescription for graduated compression stockings of 20 to 30 mmHg compression, which he is to obtain within the next several days. We will reevaluate the patient in 2 weeks to assess his progress. If he continues to do well, it is anticipated that we will discharge the patient, with follow-up thereafter as needed. Influenza vaccine was not administered today. The patient is not a smoker. He stands 5 feet 1 inches tall. He weighs 128 pounds. His BMI is 24.2, which is normal.
[2020-03-13 11:28] VITALS: BP 122/69; PULSE 76; RESP 18; TEMP 36.4; BMI 24.1
--- NOTE | 2020-03-13 11:46 | PCM.WC.HP ---
(1) Leg swelling Status: Chronic Current Visit: Yes Code(s): M79.89 - Other specified soft tissue disorders (2) Leg edema Status: Chronic Current Visit: Yes Code(s): R60.0 - Localized edema (3) Atrial septal defect Status: Chronic Current Visit: No Code(s): Q21.1 - Atrial septal defect (4) Cervical spine disease Status: Chronic Current Visit: No Code(s): M48.9 - Spondylopathy, unspecified (5) Developmental disability Status: Chronic Current Visit: Yes Code(s): F89 - Unspecified disorder of psychological development (6) Barretts esophagus Status: Chronic Current Visit: No Code(s): K22.70 - Milligan's esophagus without dysplasia (7) Congenital heart disease Status: Chronic Current Visit: No Code(s): Q24.9 - Congenital malformation of heart, unspecified Comment: Fixed hole in heart 1978 (8) Essential hypertension Status: Chronic Current Visit: No Code(s): I10 - Essential (primary) hypertension History of Present Illness Date of Service: 03/13/20 Chief Complaint: Bilateral lower extremity swelling and edema History of Wound: This is a 54-year-old white male with mild developmental disabilities. He is accompanied by his sister, Marika. The patient has suffered from chronic swelling and edema in his lower extremities for many months. It has become progressively more severe. Only several weeks prior to presentation, the swelling and edema were so severe that fluid was actually dripping from the pores of his lower extremities. The patient was referred by his primary care physician, Dr. Kiran Broussard. Dr. Broussard had recently increased the patient's diuretic medications, which resulted in some improvement in the lower extremity swelling. It is ascertained that the patient often sleeps in a recliner with his legs in a dependent position. He is not very active. During daytime hours, he receives care in day-hab, where he spends long hours sitting ideally. He does have attentive family members, including 2 sisters, who often accompany him on leisurely walks. Past Medical History Past Medical History: Chronic Problems (Last Reviewed 11/18/19 @ 10:15 by Marcy De La Cruz) Leg swelling (Chronic) Leg edema (Chronic) Atrial septal defect (Chronic) Cervical spine disease (Chronic) Developmental disability (Chronic) Barretts esophagus (Chronic) Congenital heart disease (Chronic) Fixed hole in heart 1978 Essential hypertension (Chronic) Surgical History: - - The patient has previously undergone atrial septal defect repair and cervical spinal surgery. Allergies/Adverse Reactions: Allergies Penicillins Adverse Reaction (Severe, Verified 02/14/20 10:49) SOB Home Medications: Ambulatory Orders Medication Instructions Recorded cholecalciferol (vitamin D3) 25 25 mcg PO DAILY 10/04/19 mcg (1,000 unit) capsule esomeprazole magnesium 40 mg 40 mg PO DAILY 10/04/19 capsule,delayed release fluticasone propionate 50 1 spray INTRANASAL DAILY 10/04/19 mcg/actuation nasal spray,suspension metoprolol tartrate 50 1 tab PO DAILY 10/04/19 mg-hydrochlorothiazide 25 mg tablet montelukast 10 mg tablet 10 mg PO QHS 10/04/19 multivitamin 1 tab PO DAILY 10/04/19 potassium chloride 10 mEq 10 meq PO DAILY tab 11/18/19 tablet,extended release torsemide 20 mg tablet 20 mg PO DAILY #30 tab 02/27/20 - Family History Paternal Family History: Family History (Last Reviewed 11/18/19 @ 10:15 by Marcy De La Cruz) Mother Hypertension Father Heart disease Sister CVA (cerebral vascular accident) - - The patient's father is 84 years of age and suffers from cardiac disease. The patient's mother at the age of 70 from a cerebrovascular accident. Smoking Status: Never smoker Tobacco Use: Non-smoker Review of Systems Constitutional: Denies: Chills, Fever, Weight Change Eyes: Denies: Pain, Vision Change HEENT: Denies: Difficulty Hearing, Difficulty Swallowing, Sinus Congestion Cardiovascular: Denies: Chest Pain, Palpitations Respiratory: Denies: Cough, Shortness of Breath Gastrointestinal: Denies: Diarrhea, Nausea, Vomiting Genitourinary: Denies: Dysuria, Hematuria Psychiatric: Reports: - - The patient suffers from developmental disabilities Endocrine: Denies: Heat/ Cold Intolerance, Polydipsia, Polyuria Hematologic/ Lymphatic: Denies: Easy Bruising, Easy Bleeding - Physical Exam Vital Signs Temp Pulse Resp BP 97.6 F L 76 18 122/69 H 03/13/20 11:28 03/13/20 11:28 03/13/20 11:28 03/13/20 11:28 General: Alert, Oriented x3, Cooperative, No apparent distress, Well developed, Well nourished, - - The patient is noted to suffer from mild developmental disabilities. HEENT: Atraumatic, PERRLA, EOMI, Normocephalic Oral: Moist Mucosa Neck: No JVD Lungs: Normal air movement Abdomen: Non-Distended Extremities: No clubbing, No cyanosis, No Calf Tenderness, - - Patient's right lower extremity is devoid of swelling or edema. Moderate swelling and edema are noted in the left lower extremity, associated with a hint of rather diffuse erythema. There are no significant skin changes. There are no open wounds or ulcerations. Skin: No breakdown Wound Measurements and Assessment WC - Nurse 1 - General Ulcer Measurement Start: 02/28/20 10:53 Freq: Status: Active Protocol: Activity Type Activity Date Activity User E-Sign Co-Sign Detail Recorded Client Recorded Date Recorded By Document 03/13/20 11:28 [id number] 03/13/20 11:31 DL 03/13/20 11:28 Wound Center Nurse 1 [Edema Assessment] -Right Calf (cm) 32.5 -Right Ankle (cm) 24 -Right Foot (cm) 31.5 -Left Calf (cm) 27.6 Musculoskeletal: No Muscle Wasting Neurological: Cranial nerves II-XII grossly intact, Neuro grossly intact Psych/Mental Status: Normal Affect, - - It is noted that the patient suffers from mild developmental disabilities. Debridement Note Post-Debridement Measurements/Treatment WC - Nurse 3 - General Ulcer D/C NN Start: 02/28/20 10:53 Freq: Status: Active Protocol: Activity Type Activity Date Activity User E-Sign Co-Sign Detail Recorded Client Recorded Date Recorded By Document 02/28/20 11:30 [facility] [id number] 02/28/20 11:30 [facility] 02/28/20 11:30 Wound Care Nurse 3 Right -Tubular Bandage Single Layer -Size of Tubigrip Used Size C -Size C ($) 1 Left -Tubular Bandage Single Layer -Size of Tubigrip Used Size C -Size C ($) 1 Pain Scale: 0-10 Numeric Is Patient Pain Free? Yes WC - Visit Discharge Discharge Condition Stable Ambulatory Status Ambulatory Transportation Private Auto Accompanied by sister No debridement was completed today - There are no open wounds or ulcerations. Assessment/Plan Active Problems (Last Reviewed 11/18/19 @ 10:15 by Marcy De La Cruz) Leg swelling (Chronic) Leg edema (Chronic) Developmental disability (Chronic) Assessment: This is a 54-year-old male with mild developmental disabilities. He presented with swelling and edema in his lower extremities, which had been present for approximately 8 to 9 months. It recently become more severe prior to his presentation at our facility, and only recently such that fluid was noted to be dripping from the pores of his lower limbs. The patient typically sleeps in a recliner at night, with his legs in a dependent position. He is not very active. He spends long hours sitting ideally each day at his day-hab, where caregivers oversee his activities and wellbeing. A recent noninvasive lower extremity venous study revealed no evidence of lower extremity venous thrombosis. However, valvular competence was not assessed. A noninvasive lower extremity arterial study revealed no evidence of significant arterial occlusive disease in the patient's lower extremities. An echocardiogram was performed, which revealed an ejection fraction of approximately 65% with no hemodynamically significant valvular heart disease. Given that the patient has previously undergone atrial septal defect repair, there was no obvious evidence of inter-arterial shunting. A CT scan of the patient's pelvis reveals no evidence of May-Thurner syndrome, with no evidence of left common iliac vein compression. Laboratory values from October 10, 2019, have been reviewed, with results as follows White blood count 6.2, hemoglobin 16.9, hematocrit 49.9, platelets 300,000. Chemistries from January 31, 2020, were as follows: Sodium 139, potassium 3.5, chloride 104, BUN 15, creatinine 0.84, glucose 95, calcium 8.9, total bilirubin 0.20, AST 10, ALT 24, total protein 7.3, albumin 3.8. Plan: It has been anticipated that the patient would be discharged today, as he had demonstrated good clinical response to our treatment measures. At the patient's last visit, there was no significant swelling or edema in his lower extremities, a market improvement over his condition at original intake. It was felt that the patient's lower extremity swelling and edema was related to chronic dependency. A regimen of leg elevation, avoidance of idle standing and sitting, and activity was implemented, and the patient responded as anticipated. Originally, compression had been administered to the lower extremities by means of 2 layer compression wraps, applied twice weekly. And his most recent visit, however, a transition has been made to the use of Tubigrip's. Patient presents now with significant swelling and edema in his left lower extremity. He is accompanied by his sister, who indicates that the patient has been noncompliant with the recommended measures. His lower extremity swelling and edema appears related to his noncompliance. Therefore, we are to return to the use of 3M 2 layer compression wraps, applied twice weekly. The patient had previously been given a prescription for graduated compression stockings, which are on order, and expected to be available within the next several days. We will use the 3M 2 layer compression wraps to the lower extremities for the next 2 weeks, changed twice weekly, and the patient will return in 2 weeks with his compression stockings, which will be checked for the appropriateness of fit. If the swelling in his lower extremities has responded to current measures, it is anticipated that discharge will be appropriate at that time. Influenza vaccine was not administered today. The patient is not a smoker. He stands 5 feet 1 inches tall. He weighs 128 pounds. His BMI is 24.2, which is normal.
== END 2020-03-15 14:57 | disposition home or self-care (01) ==
LOC: WC 11:00
PROVIDERS: PCP Internal Medicine; Referring Provider Internal Medicine Cardiovascular Disease; Visit Provider Surgery
DX: M79.89 Other specified soft tissue disorders (principal); R60.0 Localized edema; I10 Essential (primary) hypertension; Q21.1 Atrial septal defect; Z79.899 Other long term (current) drug therapy
CPT/HCPCS: 29581; 99212; G0463

== ENCOUNTER 2021-03-18 19:40 | Emergency (ER) | payer MEDICARE, MEDICAID, SELFPAY ==
[2021-03-18 19:42] VITALS: BP 107/61; PULSE 92; RESP 18; TEMP 35.9; O2SAT 96; BMI 26.0
== END 2021-03-18 21:04 | disposition left against medical advice (07) ==
LOC: ED 21:34
PROVIDERS: PCP Internal Medicine
DX: Z53.21 Procedure and treatment not carried out due to patient leaving prior to being seen by health care provider (principal)

== ENCOUNTER 2021-09-19 04:40 | Emergency (ER) | payer MEDICARE, MEDICAID, SELFPAY ==
[2021-09-19 04:40] VITALS: BP 123/59; PULSE 84; RESP 16; TEMP 36.6; O2SAT 100; BMI 26.9
[2021-09-19] MEDS: 0.9% Normal Saline 1,000 ML 125 ML IV (05:05)
[2021-09-19 05:09] LABS: Absolute Lymphocyte Count 1.43 X10^3/uL (0.83-4.51); Absolute Neutrophil Count 3.8 X10^3/uL (2.0-7.7); Basophil# 0.02 X10^3/uL; Basophil% 0.3 % (0-1); Eosinophil# 0.11 X10^3/uL; Eosinophils% 1.8 % (0-5); Hematocrit 42.6 % (40-54); Hemoglobin 15.3 g/dL (13.0-16.5); Lymphocyte # 1.43 X10^3/ul (0.83-4.51); Lymphocyte % 23.2 % (19-41); Mean Corp Hgb Conc 35.9 g/dL (32-36); Mean Corpuscular Hgb 29.9 pg (27.0-32.0); Mean Corpuscular Volume 83.4 fL (80-94); Mean Platelet Vol. 9.7 fl (6.2-12.0); Monocyte# 0.84 X10^3/uL; Monocyte% 13.6 % (0-10); NRBC Flagged by Analyzer 0 % (0-5); Neutrophil # 3.76 X10^3/uL (2.7-7.7); Neutrophil % 60.9 % (47-70); Platelet Count 302 K/mm3 (150-450); RBC Distribution Width CV 13.8 % (11.6-14.6); Red Blood Count 5.11 M/mm3 (4.6-6.2); White Blood Count 6.2 K/mm3 (4.4-11.0)
--- NOTE | 2021-09-19 05:15 | EDS_ITS ---
HPI HPI - GI History of Present Illness Chief Complaint: Diarrhea Informant: patient and family (Sister) Narrative Narrative: Patient is a 55-year-old male presenting with diarrhea. Patient has a history of developmental disability, atrial septal defect and peripheral edema. Patient's had significant diarrhea for the past 2 to 3 days. There is been to any bowel movements to count. They always happen in the shower per the patient's sister who is also his guardian. Patient has had small amount of vomiting. Denies any associate abdominal pain. Denies any blood in vomit or the stool. No report of any fever or chills. Patient's been drinking Pedialyte. Patient did have an EGD [address] Weber in vagina for routine monitoring of Milligan's esophagus. The diarrhea started a couple days after that. They have tried Imodium and Kaopectate with no relief of the diarrhea. No recent antibiotics. Patient is not have a history of C. difficile. Sister does report that multiple other people at his adult daycare have been out with a diarrheal illness as well. Sister does note that patient's been having lower extremity edema worse on the left. States this is a chronic issue. And 2019 patient was in wound care and with serial wrapping the swelling had all but resolved however they are not doing that anymore and now the swelling has returned. Patient does follow with Dr. rBoussard as well. Patient did have ventral hernia repair last year. [facility] Medical History (Updated 09/19/21 @ 08:[address] Charity Hayes, DO) Barretts esophagus Congenital heart disease Essential hypertension Home Medications cholecalciferol (vitamin D3) 25 mcg (1,000 unit) capsule 25 mcg PO DAILY 01/15 [History Last Taken Unknown] metoprolol tartrate 50 mg-hydrochlorothiazide 25 mg tablet 1 tab PO DAILY 10/04/19 [History Last Taken Unknown] montelukast 10 mg tablet 10 mg PO QHS 10/04/19 [History Last Taken Unknown] multivitamin 1 tab PO DAILY 10/04/19 [History Last Taken Unknown] omeprazole 40 mg capsule,delayed release 40 mg PO DAILY 11/08/20 [History Last Taken Unknown] torsemide 20 mg tablet 20 mg PO DAILY #30 tab 01/22/21 [Rx Last Taken Unknown] cholestyramine (with sugar) 1 g PO BID PRN #10 ea 09/19/21 [Rx Last Taken Unknown] diphenoxylate-atropine [Lomotil] 1 tab PO BID PRN #10 tab 09/19/21 [Rx Last Taken Unknown] lactobacillus combination no.4 [Probiotic] 3,000 mmu cells PO DAILY 09/19/21 [History Last Taken Unknown] potassium chloride 10 meq PO 4X/DAY 09/19/21 [History Last Taken Unknown] potassium chloride 20 meq PO DAILY 5 Days #5 ea 09/19/21 [Rx Last Taken Unknown] Allergy/AdvReac Type Severity Reaction Status Date / Time Penicillins AdvReac Severe SOB Verified 09/19/21 04:47 Family History Mother Hypertension Father Heart disease Sister CVA (cerebral vascular accident) Surgical History Fusion of spine, cervical region Social History Smoking Status: Never smoker alcohol intake: never substance use type: does not use ROS ROS ED Constitutional Constitutional ED: Denies chills or fever(s) ENT ENT ED: Denies rhinorrhea or sore throat Cardiovascular Cardiovascular: Denies chest pain Respiratory/Chest Respiratory/Chest: Denies dyspnea Gastrointestinal Gastrointestinal: Reports diarrhea, nausea and vomiting; Denies abdominal pain or melena Genitourinary Genitourinary ED: Denies dysuria or hematuria Musculoskeletal Musculoskeletal: Denies arthralgias or myalgias Integumentary Denies rash Neurologic Neurologic: Denies headache(s) or weakness Psychiatric Psychiatric: Denies depression EXAM Physical Exam Const Vital Signs: 09/19/21 04:40 09/19/21 07:06 Temperature 97.9 F Temperature Source Temporal Pulse Rate 84 Respiratory Rate 16 18 Blood Pressure 123/59 H Blood Pressure Mean 80 Pulse Ox 100 Oxygen Delivery Method Room Air Positive well nourished and well developed General Appearance ED: well developed and NAD HEENT normocephalic and atraumatic Eyes PERRL Neck supple and no JVD Resp normal respiratory effort and clear to auscultation bilaterally Cardio regular rate, regular rhythm and no murmurs GI non-tender and non-distended Auscultation: normoactive bowel sounds Palpation: soft; Negative for guarding or rigid Back/Spine no CVA tenderness Extremity full ROM Extremity Narrative: 2+ bilateral pitting edema. Left leg larger than the right which sister states is chronic. There is some slight erythema consistent with chronic venous stasis but no abnormal warmth or signs of acute cellulitis. General Extremety ED: Yes edema; Negative for tenderness General Extremity: edema Neuro moves all extremities and no sensory deficits noted Sensorium / Orientation: alert Motor Exam: Negative for general weakness Psych mental status grossly normal Skin Lesions: no lesions Rashes: no rashes MDM MDM MDM Narrative Medical decision making narrative: Patient evaluated for diarrhea. Has had multiple sick contacts the center that he goes to with similar symptoms. Patient overall is well-appearing. His vital signs are normal. Abdomen is soft and nontender. He does not have a leukocytosis. Has had no recent antibiotics or other risk factors for C. difficile. Lab work does show a potassium of 2.9. Patient is given IV fluids and oral as well as IV potassium replacement. Stool studies are pending. His sister who is his primary caregiver voiced a significant concern about controlling his diarrhea. Spoke with Dr. Rodgers, GI on-call who recommends a regiment of alternating cholestyramine and Lomotil. Patient is given a prescription for these medications given first dose of cholestyramine in the emergency room. Sister counseled on return precautions. Patient is placed on a short course of potassium given his continued diarrhea. Encouraged to follow-up with primary care doctor next week for repeat labs. Patient and caregiver verbalized agreement understand this plan. Lab Data Labs: Laboratory Results - last 24 hr 09/19/21 09/19/21 04:50 04:50 WBC 6.2 RBC 5.11 Hgb 15.3 Hct 42.6 MCV 83.4 MCH 29.9 MCHC 35.9 RDW Std Deviation 42.0 RDW Coeff of Sony 13.8 Plt Count 302 MPV 9.7 Immature Gran % (Auto) 0.200 Neut % (Auto) 60.9 Lymph % (Auto) 23.2 Gage % (Auto) 13.6 H Eos % (Auto) 1.8 Baso % (Auto) 0.3 Absolute Neuts (auto) 3.8 Absolute Lymphs (auto) 1.43 Nucleated RBC % 0 Sodium 139 Potassium 2.9 L Chloride 105 Carbon Dioxide 29.0 Anion Gap 5 BUN 12 Creatinine 0.85 Estim Creat Clear Calc 70.93 Est GFR (MDRD) Af Amer 120 Est GFR (MDRD) Non-Af 99 BUN/Creatinine Ratio 14.2 Glucose 99 Calcium 8.5 Total Bilirubin 0.30 AST 27 ALT 42 Alkaline Phosphatase 114 Total Protein 7.7 Albumin 3.7 Globulin 4.0 Albumin/Globulin Ratio 0.9 Lipase 144 Discharge Plan Triage Chief Complaint: Diarrhea ED Provider: Charity Hayes Dx/Rx/DC Orders Clinical Impression: Diarrhea, Hypokalemia Instructions: ED Diarrhea, Unknown Cause, ED Hypokalemia Prescriptions: New cholestyramine (with sugar) 4 gram powder in packet 1 g PO BID PRN (Reason: diarrhea) Qty: 10 RF: 0 diphenoxylate-atropine [Lomotil] 2.5-0.025 mg tablet 1 tab PO BID PRN (Reason: diarrhea) Qty: 10 RF: 0 potassium chloride 20 mEq packet 20 meq PO DAILY 5 Days Qty: 5 RF: 0 No Action montelukast 10 mg tablet 10 mg PO QHS RF: 0 metoprolol ta-hydrochlorothiaz 50-25 mg tablet 1 tab PO DAILY RF: 0 cholecalciferol (vitamin D3) 25 mcg (1,000 unit) capsule 25 mcg PO DAILY RF: 0 multivitamin Tablet 1 tab PO DAILY RF: 0 omeprazole 40 mg capsule,delayed release(DR/EC) 40 mg PO DAILY RF: 0 Probiotic 3 billion cell Capsule 3,000 mmu cells PO DAILY RF: 0 potassium chloride 10 mEq tablet extended release 10 meq PO 4X/DAY RF: 0 torsemide 20 mg tablet 20 mg PO DAILY Qty: 30 RF: 12 Primary Care Provider: Taylor Enrique Referrals: Taylor Enrique MD [Primary Care Provider] - Friend,DO Delfino [STAFF PHYSICIAN] - As Needed Activity Restrictions/Additional Instructions: Alternate the cholestyramine and Lomotil every 6 hours. The first day take 2 tablets of Lomotil at a time. So you are taking a total of 2 doses of cholestyramine and 2 doses of Lomotil every day. After the first 24 hours day only take 1 Lomotil tablet at a time. A prescription for both of these medications has been sent to your pharmacy. Your potassium level is low today. You are given replacement. Please follow-up with your primary care doctor next week for repeat lab work to make sure your potassium level is improved. Disposition Disposition: Home, Self Care
[2021-09-19 05:32] LABS: ALB/GLOB Ratio 0.9 RATIO (0.9-2.4); AST(SGOT) 27 U/L (15-37); Alanine Aminotransfer ALT/SGPT 42 U/L (16-61); Albumin, Serum 3.7 g/dL (3.2-5.0); Alkaline Phosphatase 114 U/L (45-117); Anion Gap 5 (5-15); BUN 12 mg/dL (7-18); BUN/Creat Ratio 14.2 RATIO (10-20); Calcium,Total 8.5 mg/dL (8.5-10.1); Chloride 105 mmol/L (98-107); Creatinine, Serum 0.85 mg/dL (0.70-1.30); EST Glomerular Filtration Rate 99 mL/min (>60); Est Glom Filt Rate - Afr Amer 120 mL/min (>60); Estimated Creatinine Clearance 70.93 ml/min; Glucose 99 mg/dL (74-106); Lipase 144 U/L (73-393); Potassium 2.9 mmol/L (3.5-5.1); Protein, Total 7.7 g/dL (6.4-8.2); Sodium Level 139 mmol/L (136-145)
[2021-09-19] MEDS: Potassium Chloride Oral Soln 20 MEQ/15 ML UDC 40 MEQ PO (06:11)
[2021-09-19] MEDS: Potassium Chloride 10mEq/100mL 10 MEQ/100 ML IV.SOLN. 100 MEQ IV BOLUS (06:14)
[2021-09-19 07:06] VITALS: RESP 18
[2021-09-19] MEDS: Ondansetron 4 MG/2 ML Vial IV (07:37)
[2021-09-19] MEDS: Cholestyramine/Sucrose 4 GM/PACKET PO (09:31)
[2021-09-19 10:01] VITALS: PULSE 72; RESP 16; O2SAT 98
== END 2021-09-19 10:03 | disposition home or self-care (01) ==
PROVIDERS: Emergency Provider Emergency Medicine; PCP Internal Medicine; Visit Provider Emergency Medicine
DX: R19.7 Diarrhea, unspecified (principal); E87.6 Hypokalemia; I10 Essential (primary) hypertension; Z79.899 Other long term (current) drug therapy; Q21.1 Atrial septal defect; R60.0 Localized edema
CPT/HCPCS: 80053; 83630; 83690; 85025; 87177; 87209; 87493; 87506; 96361; 96365; 96366; 96375; 99282; A4216; J2405

== ENCOUNTER 2023-10-26 14:00 | Outpatient (RCR) | payer MEDICARE, MEDICAID, SELFPAY ==
--- NOTE | 2023-07-28 15:09 | HP.PTEVAL_ITS ---
Patient's Visit Information Visit Information Visit Information: KENTON RYAN is a 57 year old M referred to Physical Therapy by LOLIS SOLOMON with a diagnosis of GAIT INSTABILITY. Date of Evaluation: 07/28/23 Physical Therapist: César Alvarez, PT, Cert MDT, OCS Visit Plan Frequency: 2x /Week Duration: 4 Weeks Plan: PATIENT SEE OT FOR CHRONIC EDEMA PT INTEREVTIONS PROGRESSIVE BALANCE PROGRAM ,ENDURANCE PROGRAM,BLE STRENGTHENING AND FUNCTIONAL STRENGTHENING Subjective Subjective: This 57 y/o male presents to physical with gait instability. Patient seen DR and recommended PT for strengthening and gait . Patient gas no fallen . Patient chronic edema affects walking . Patient denies pain. Patient aggravating factors extended walking ,stairs on at time. Patient is unable to squat and kneeling. Patient is able to bath dress independently bit slow. Patient sister does cooking but able to heat in microwave. Patient lives alone apartment with elevator. Patient has leg pump for edema ,compression socks with zipper. Patient has tub/shower with grab rail ,hand held shower and tube stool. Patient has OXIDATION OPERATOR 3x week. Patient denies paresthesia/tingling. Comorbities Atrial septal defect Barretts esophagus, Cervical spine disease, Congenital heart disease, Developmental disability ,Essential hypertension, Leg edema and cervical fusion ,open ulcers in legs . Patient condition affects QOL and function. Patient goal get stronger. SOCAIL: single lives alone Objective Objective: POSTURE: calcaneal valgus , valgus knee EDEMA: 3+ bilateral lower legs left > right PALAPTION: unremarkable GAIT: ambulates with knee valgus with calcaneal valgus slow saida decrease step length MMT: ( peak force) quads 22.3right ,left 23.1 ,hamstrings 24.1 right ,left 22.9 ,hip flexion 20.1 right ,left 22.1 ,hip abd right 15.1,left 13.6 ,ankle 4/5 HAMSTRINGS: min tight STAIRS: one step at time Balance/Special Test Scores CATSIB Score (Max score 120 seconds): 35 Lower Extremity Functional Score: 23 30 Second Chair Rise Test Seconds: 6 Goals Goal 1:: Patient to be I with HEP with assist with caregiver Goal Time Frame: 4-6 Weeks Goal 2:: Patient to improve 30sec sit-stand by 5 reps to improve strength Goal Time Frame: 4-6 Weeks Goal 3:: Patient to improve peak force quads/hams/hip by 5 # to increase gait Goal Time Frame: 4-6 Weeks Goal 4:: Patient to improve CATSIB score by 5 -10 points to improve balance Goal Time Frame: 4-6 Weeks Goal 5:: Patient to improve LFES score by 5 points to improve gait and function Goal Time Frame: 4-6 Weeks Rehabilitation Potential Physical Therapy Diagnosis: This patient has decrease gait endurance and weakness in legs as well as chronic edema thus based on these deficits patient will benefit from skilled PT Rehabilitation Potential: Good Anticipated Interventions Patient/Client Instruction: Educate patient on: Condition and Plan of Care For the Purpose of:: To decrease pain, To increase ROM, To improve muscle performance and motor function, To improve ability to perform ADL's, To increase tolerance to activity/condition/position, To improve ability of physical actions for home/community/work/leisure, To improve health of tissue, To decrease soft tissue restriction and To increase flexibility/ROM Therapeutic Exercise to Include: Strength training, Endurance training, Balance training, Gait and locomotor training and Active ROM Comment: BLE For the Purpose of:: To decrease pain, To increase ROM, To improve muscle performance and motor function, To increase tolerance to activity/condition/position, To improve ability of physical actions for home/community/work/leisure, To improve gait and locomotor functions, To improve endurance, To improve balance and To improve safety with gait Text: Thank you for the opportunity to evaluate your patient. For Medicare and Medicare HMO plans, please review the plan of care and approve it. It will need to be FAXED BACK to us at [phone] for Medicare purposes. For Medicare only, by signing this I certify the plan of care. Please let me know if there are questions or concerns regarding this plan of care. Physician Signature: Date:
--- NOTE | 2023-07-30 07:48 | HP.OTEVAL ---
Patient's Visit Information Visit Information Visit Information: KENTON RYAN is a 57 year old M, referred to Occupational Therapy by LOLIS SOLOMON, with a diagnosis of BLE lymphedema. Date of Evaluation: 07/28/23 Occupational Therapist: Marcy Porter, SABRAR/Alison, CHT Subjective Subjective: This 57 year old male was seen for OT eval with dx of Lymphedema of bilateral LE. pt is with is oldest sister who speaks on his behalf. pt states he is using the pump 1-2x a day compression pump lymphapress 4 chamber home pump. Pt states he has not had the compression pump for about a year. pts left leg currently more of an issue vs right at this time. pt and pts sister would like to get compression garments that help pt with swelling and also compression that he can put on himself. Lymphedema (Circumferential Measure) Mid-foot: right 21.5cm left 23.5cm Ankle: right 26cm left 29.5cm Lower calf: right 28cm left 31.5cm Largest calf: right 34cm left 39cm Below knee: right 34.5cm left 35cm Goals Goal: Patient will demonstrate a 20% reduction in edema by discharge: Yes Goal: Patient will demonstrate adequate knowledge of self-massage by the end of the second week.: Yes Goal: Patient will demonstrate adequate knowledge of skin care and precautions by the end of the first week.: Yes Goal: Patient will demonstrate adequate knowledge of therapeutic exercises by discharge.: Yes Goal: Patient will select an appropriate compression garment and demonstrate adequate knowledge of correct donning technique, care and wearing schedule by discharge.: Yes Goal: Patient will voice understanding of need to replace compression garment every four to six months by discharge.: Yes Rehabilitation General Assessment: pt demo with stage II lymphedema and demo need for skilled OT services 2-3 visits to ensure pts understanding of lymphedema ex., self manual lymph massage, compression garments and devices to allow for life long ind. mtg of his BLE lymphedema. Today therapist ed. pt and pts sister on Lymphedema self drainage massage, lymph stimulation ex, skin care, and compression alternative ( velcro closure Sigvaris compreflex standard calf & foot) as well as a compression sock 20-30mmHg for right LE. Therapist ed. pt on use of his current compression pump and how to stimulate lymph nodes at neck, armpit, groin and behind knee prior to getting on pump- pt and pts sister demo understanding and agree to POC. will get script for compression devices and fax to Derrick Mcneill. Rehabilitation Potential: Good Anticipated Interventions Anticipated Interventions: Edema Control, Education re assistive Equipment, Education re Diagnosis, Education re Life-long lymphedema Management, Education re Skin Care and Precautions, Education re Self Massage Techniques, Education re Correct Donning Tech,Care&Wearing Sched Comp Garments, Caregiver Training and Home Program Visit Plan TEXT: Thank you for the opportunity to evaluate your patient. For Medicare and Medicare HMO plans, please review the plan of care and approve it. It will need to be FAXED BACK to us at [phone] for Medicare purposes. Please let me know if there are questions or concerns regarding this plan of care. Physician Signature: Date:
--- NOTE | 2023-08-26 15:00 | HP.PTREVAL ---
Re-Evaluation Intro: LOLIS SOLOMON, It has been my pleasure to treat KENTON RYAN over the last 9 visits for GAIT INSTABILITY. Please see the progress note below for an update on the physical therapy plan of care! Subjective Subjective: PT has been helping getting stronger and improve balance Objective Objective/Function: * patient progressing with strength and balance progressing towards goals will cont to benefit from skilled PT* POSTURE: calcaneal valgus , valgus knee EDEMA: 3+ bilateral lower legs left > right PALAPTION: unremarkable GAIT: ambulates with knee valgus with calcaneal valgus slow saida decrease step length MMT: ( peak force) quads 24.1right ,left 25.1 ,hamstrings 25.9 right ,left 24.1 ,hip flexion 23.1 right ,left 29.0 ,hip abd right 17.2,left 15.2 ,ankle 4/5 HAMSTRINGS: min tight STAIRS: one step at time Plan Plan Plan: CONT WITH POC PATIENT SEE OT FOR CHRONIC EDEMA PT INTEREVTIONS PROGRESSIVE BALANCE PROGRAM ,ENDURANCE PROGRAM,BLE STRENGTHENING AND FUNCTIONAL STRENGTHENING Balance/Gait/Functional tests Balance/Special Test Scores CATSIB Score (Max score 120 seconds): 65 Lower Extremity Functional Score: 23 30 Second Chair Rise Test Seconds: 8 Goals Goals Goal 1:: Patient to be I with HEP with assist with caregiver Goal Time Frame: 4-6 Weeks Goal Progress: Progressing Goal 2:: Patient to improve 30sec sit-stand by 5 reps to improve strength Goal Time Frame: 4-6 Weeks Goal Progress: Progressing Goal 3:: Patient to improve peak force quads/hams/hip by 5 # to increase gait Goal Time Frame: 4-6 Weeks Goal Progress: Progressing Goal 4:: Patient to improve CATSIB score by 5 -10 points to improve balance( NEW G0AL) * PRIOR GOAL MET* Goal Time Frame: 4-6 Weeks Goal 5:: Patient to improve LFES score by 5 points to improve gait and function Goal Time Frame: 4-6 Weeks Goal Progress: Progressing Anticipated Interventions Anticipated Interventions Patient/Client Instruction: Educate patient on: Condition and Plan of Care For the Purpose of:: To decrease pain, To increase ROM, To improve muscle performance and motor function, To improve ability to perform ADL's, To increase tolerance to activity/condition/position, To improve ability of physical actions for home/community/work/leisure, To improve health of tissue, To decrease soft tissue restriction and To increase flexibility/ROM Therapeutic Exercise to Include: Strength training, Endurance training, Balance training, Gait and locomotor training and Active ROM Comment: BLE For the Purpose of:: To decrease pain, To increase ROM, To improve muscle performance and motor function, To increase tolerance to activity/condition/position, To improve ability of physical actions for home/community/work/leisure, To improve gait and locomotor functions, To improve endurance, To improve balance and To improve safety with gait Re-Evaluation Ending Re-evaluation ending: Please do not hesitate to contact me at [phone] by phone or if you have questions or concerns regarding this new plan of care! Sincerely, César Alvarez, PT, Cert MDT, OCS
--- NOTE | 2023-09-23 13:52 | HP.PTREVAL ---
Re-Evaluation Intro: LOLIS SOLOMON, It has been my pleasure to treat KENTON RYAN over the last 16 visits for GAIT INSTABILITY. Please see the progress note below for an update on the physical therapy plan of care! Subjective Subjective: Patient balance is improving no pain. Patient wear zipper compression sleeves No pain Aide working with patient at home Objective Objective/Function: * patient progressing with strength and balance progressing towards goals will cont to benefit from skilled PT with goals addressed and reviewed* POSTURE: calcaneal valgus , valgus knee EDEMA: 3+ bilateral lower legs left > right GAIT: ambulates with knee valgus with calcaneal valgus slow saida decrease step length MMT: ( peak force) quads 24.7right ,left 25.4 ,hamstrings 25.8 right ,left 24.5 ,hip flexion 23.9 right ,left 29.6 ,hip abd right 17.5,left 15.6 ,ankle 4/5 HAMSTRINGS: min tight STAIRS: one step at time Plan Plan Plan: CONT WITH POC PATIENT SEE OT FOR CHRONIC EDEMA PT INTEREVTIONS PROGRESSIVE BALANCE PROGRAM ,ENDURANCE PROGRAM,BLE STRENGTHENING AND FUNCTIONAL STRENGTHENING Balance/Gait/Functional tests Balance/Special Test Scores CATSIB Score (Max score 120 seconds): 69 Lower Extremity Functional Score: 23 30 Second Chair Rise Test Seconds: 9 Goals Goals Goal 1:: Patient to be I with HEP with assist with caregiver Goal Time Frame: 4-6 Weeks Goal Progress: Progressing Goal 2:: Patient to improve 30sec sit-stand by 5 reps to improve strength Goal Time Frame: 4-6 Weeks Goal Progress: Progressing Goal 3:: Patient to improve peak force quads/hams/hip by 5 # to increase gait Goal Time Frame: 4-6 Weeks Goal Progress: Progressing Goal 4:: Patient to improve CATSIB score by 5 -10 points to improve balance( NEW G0AL) * PRIOR GOAL MET* Goal Time Frame: 4-6 Weeks Goal Progress: Progressing Goal 5:: Patient to improve LFES score by 5 points to improve gait and function Goal Time Frame: 4-6 Weeks Goal Progress: Progressing Anticipated Interventions Anticipated Interventions Patient/Client Instruction: Educate patient on: Condition and Plan of Care For the Purpose of:: To decrease pain, To increase ROM, To improve muscle performance and motor function, To improve ability to perform ADL's, To increase tolerance to activity/condition/position, To improve ability of physical actions for home/community/work/leisure, To improve health of tissue, To decrease soft tissue restriction and To increase flexibility/ROM Therapeutic Exercise to Include: Strength training, Endurance training, Balance training, Gait and locomotor training and Active ROM Comment: BLE For the Purpose of:: To decrease pain, To increase ROM, To improve muscle performance and motor function, To increase tolerance to activity/condition/position, To improve ability of physical actions for home/community/work/leisure, To improve gait and locomotor functions, To improve endurance, To improve balance and To improve safety with gait Re-Evaluation Ending Re-evaluation ending: Please do not hesitate to contact me at [phone] by phone or if you have questions or concerns regarding this new plan of care! Sincerely, César Alvarez, PT, Cert MDT, OCS
== END 2023-10-26 19:00 | disposition home or self-care (01) ==
LOC: PT 14:00
PROVIDERS: PCP Internal Medicine
DX: R26.81 Unsteadiness on feet (principal); I89.0 Lymphedema, not elsewhere classified; R60.0 Localized edema
CPT/HCPCS: 97110; 97112; 97162; 97165; 97530

== ENCOUNTER 2024-04-09 12:30 | Emergency (ER) | payer MEDICARE, MEDICAID, SELFPAY ==
[2024-04-09 12:31] VITALS: BP 110/71; PULSE 80; RESP 16; TEMP 36.8; O2SAT 97; BMI 27.9
--- NOTE | 2024-04-09 13:12 | EX.ED.DYSGE1 ---
HPI History of Present Illness Chief Complaint: Edema Narrative Narrative: Patient is a 58-year-old male with past medical history of developmental disability, lymphedema, hypertension, Milligan's esophagus who presents to the [facility] with a chief complaint of left lower extremity swelling. He states that his left lower extremity swelling has been like this for a significant mount time as well as right lower extremity however they feel that it is more swollen than normal. They state that he is on water pills and has been compliant with these. Patient denies any injuries or recent travel. Denies any history of blood clots. Patient otherwise feels his normal self. They did note that he does have some more redness in his left lower extremity than normal. [facility] Medical History Developmental disability Cervical spine disease Atrial septal defect Leg edema Leg swelling Barretts esophagus Congenital heart disease Essential hypertension Home Medications ?Medication ?Instructions ?Recorded ?Last Taken ?Type cholecalciferol (vitamin D3) 25 25 mcg PO DAILY 10/04/19 Unknown History mcg (1,000 unit) capsule metoprolol tartrate 50 1 tab PO DAILY 10/04/19 Unknown History mg-hydrochlorothiazide 25 mg tablet montelukast 10 mg tablet 10 mg PO QHS 10/04/19 Unknown History multivitamin 1 tab PO DAILY 10/04/19 Unknown History omeprazole 40 mg capsule,delayed 40 mg PO DAILY 11/08/20 Unknown History release diphenoxylate-atropine 2.5 1 tab PO BID PRN diarrhea #10 tabs 09/19/21 Unknown Rx mg-0.025 mg tablet (Lomotil) lactobacillus combination no.4 3 3,000 mmu cells PO DAILY 09/19/21 Unknown History billion cell capsule (Probiotic) albuterol sulfate 90 mcg/actuation 2 puff inhalation Q4H PRN 02/11/23 Unknown History aerosol inhaler shortness of breath or wheezing tamsulosin 0.4 mg capsule 0.4 mg PO QHS 02/11/23 Unknown History potassium chloride 10 mEq 20 meq (2 x 10 mEq) PO BID #360 04/22/23 Unknown Rx tablet,extended release tabs torsemide 20 mg tablet 20 mg PO DAILY #90 tabs 08/10/23 Unknown Rx azelastine 137 mcg (0.1 %) nasal 1 spray intranasal BID PRN 02/02/24 Unknown History spray fluticasone propionate 50 1 spray intranasal DAILY 02/02/24 Unknown History mcg/actuation nasal spray,suspension (Allergy Relief (fluticasone)) metamucil fiber bar PO DAILY 02/02/24 Unknown History doxycycline hyclate 100 mg capsule 100 mg PO BID 7 days #14 caps 04/09/24 Unknown Rx Allergy/AdvReac Type Severity Reaction Status Date / Time Penicillins AdvReac Severe SOB Verified 04/09/24 12:31 Family History Mother Hypertension Father Heart disease Sister CVA (cerebral vascular accident) Surgical History Fusion of spine, cervical region Social History Smoking Status: Never smoker alcohol intake: never substance use type: does not use ROS ROS ED ROS Narrative Constitutional: Denies fevers, chills, headaches, Malik, denies Eyes: Denies denies change in vision double vision blurry Cardiovascular: Denies chest pain or palpitations Respiratory: denies coughing wheezing shortness of breath Abdomen: Denies abdominal pain nausea vomit diarrhea : Denies urinary symptoms Neurological: Denies numbness, weakness, tingling Musculoskeletal: Complains of left lower extremity swelling as noted above Skin: Complains of redness to the left lower extremity as noted above EXAM Physical Exam Narrative Exam Narrative: General: Patient lying in bed rest comfortably did not appear to be in acute distress Head: Atraumatic, normocephalic Eyes: PERRL bilateral, EOMI bilateral, no conjunctival injection noted Neck: Soft, supple, trach midline Cardiovascular: Regular rate and rhythm no murmurs gallops rubs noted Respiratory: Clear to auscultation bilaterally no rales rhonchi or wheezes noted Abdomen: Soft, nondistended, nontender to palpation Musculoskeletal: Patient has swelling in his bilateral lower extremities his left lower extremity is more swollen than the right Extremities: DP pulses +2/4 in the bilateral lower extremities, +5/5 strength noted in the bilateral lower extremity, patient does have evidence of lymphedema noted bilaterally Neurological: Patient follow commands knew that he was at [facility] years 2023 Skin: Patient has some redness to the anterior of his left pearl evidence of cellulitis. No petechia no purpura no sloughing of skin noted Const Vital Signs: 04/09/24 12:31 Temperature 98.3 F Temperature Source Oral Pulse Rate 80 Respiratory Rate 16 Blood Pressure 110/71 Blood Pressure Mean 84 Pulse Ox 97 Oxygen Delivery Method Room Air MDM MDM MDM Narrative Medical decision making narrative: patient is a 58-year-old male who presented to the emergency department chief complaint of bilateral lower extremity swelling the left worse than the right. Unfortunately today ultrasound is not available to do a venous duplex. Patient will be given Lovenox subcutaneously and a ultrasound will be ordered for tomorrow. Will treat him for a left lower extremity cellulitis with doxycycline as he has a penicillin allergy as well. They are advised to call the ER at 11 AM if they have not heard from the hospital tomorrow for the ultrasound. They are agreeable this plan they would like to go home at this point time all question concerns answered he is discharged home in stable condition. Discharge Plan Triage Chief Complaint: Edema ED Provider: Bienvenido Hung Dx/Rx/DC Orders Clinical Impression: Left leg swelling, Cellulitis of left leg Prescriptions: New doxycycline hyclate 100 mg capsule 100 mg PO BID 7 Days Qty: 14 0RF No Action montelukast 10 mg tablet 10 mg PO QHS metoprolol ta-hydrochlorothiaz 50-25 mg tablet 1 tab PO DAILY cholecalciferol (vitamin D3) 25 mcg (1,000 unit) capsule 25 mcg PO DAILY multivitamin Tablet 1 tab PO DAILY omeprazole 40 mg capsule,delayed release(DR/EC) 40 mg PO DAILY tamsulosin 0.4 mg capsule 0.4 mg PO QHS Patient Comments: TAKE ONE CAPSULE BY MOUTH DAILY AT BEDTIME albuterol sulfate 90 mcg/actuation HFA aerosol inhaler 2 puff inhalation Q4H PRN (Reason: shortness of breath or wheezing) Patient Comments: INHALE 2 PUFFS INSTRUCTED EVERY 4 HOURS NEEDED FOR WHEEZING/SHORTNESS OF BREATH. azelastine 137 mcg (0.1 %) spray,non-aerosol 1 spray intranasal BID PRN fluticasone propionate [Allergy Relief (fluticasone)] 50 mcg/actuation spray,suspension 1 spray intranasal DAILY Rx Instructions: administer into each nostril metamucil fiber bar PO DAILY Probiotic 3 billion cell Capsule 3,000 mmu cells PO DAILY diphenoxylate-atropine [Lomotil] 2.5-0.025 mg tablet 1 tab PO BID PRN (Reason: diarrhea) Qty: 10 0RF potassium chloride 10 mEq tablet extended release 20 meq PO BID Qty: 360 3RF torsemide 20 mg tablet 20 mg PO DAILY Qty: 90 3RF Other Ambulatory Orders: Venous Duplex US, Unilateral (Stat) Facility: [facility] - Location: [facility] Ordered By: Dr. Bienvenido Hung Primary Care Provider: Taylor Enrique Referrals: Taylor Enrique MD [Primary Care Provider] - Activity Restrictions/Additional Instructions: Take antibiotics as prescribed. Follow-up tomorrow for your ultrasound. If you do not hear from the hospital by 11 AM you need to call and ensure that you have this ultrasound performed tomorrow. Return for worsening symptoms or any other concerns. Follow-up with your primary care physician as well Print Language: Citizen Of [place] Disposition Disposition: Home, Self Care
[2024-04-09] MEDS: Enoxaparin 30 MG/0.3 ML Syringe SC (13:18)
[2024-04-09 13:27] VITALS: BP 135/69; PULSE 72; RESP 15; TEMP 36.7; O2SAT 98
== END 2024-04-09 13:29 | disposition home or self-care (01) ==
PROVIDERS: Emergency Provider Emergency Medicine; PCP Internal Medicine; Visit Provider Emergency Medicine
DX: M79.89 Other specified soft tissue disorders (principal); L03.116 Cellulitis of left lower limb; I10 Essential (primary) hypertension; Z79.899 Other long term (current) drug therapy
CPT/HCPCS: 96372; 99282

== ENCOUNTER → 2024-04-10 | Outpatient (CLI) | payer MEDICARE, MEDICAID, SELFPAY ==
--- NOTE | 2024-04-10 12:06 | VDLE_ITS ---
Reason For Study: Left leg swelling RIGHT LEFT CFV is compressible, spontaneous, phasic, GSV is normal. competent and demonstrates normal CFV is compressible, spontaneous, phasic, augmentation. competent, and demonstrates normal Procedure augmentation. This is a venous duplex using B-mode, color FV is compressible, spontaneous, phasic, flow and spectral Doppler. competent and demonstrates normal Exam performed in department. augmentation. A preliminary report was called and/or faxed POP V is compressible, spontaneous, phasic, to PCP: Dr. Enrique. competent and demonstrates normal augmentation. T/P Trunk is compressible. PTV is compressible. LT PerV is compressible. VL/Venous Duplex US, Unilateral Interpretation Summary Deep veins of the left lower extremity are patent and compressible segmentally. There is no evidence of left lower extremity deep vein thrombosis. The left great saphenous vein marlen ears patent and compressible segmentally. Ordering Physician: Bienvenido Hung Referring Physician: Taylor Enrique M.D. Performed By: Xochilt Olivas RVT
== END | disposition home or self-care (01) ==
PROVIDERS: PCP Internal Medicine; Visit Provider Emergency Medicine
DX: R22.42 Localized swelling, mass and lump, left lower limb (principal)
CPT/HCPCS: 93971

== ENCOUNTER 2024-05-24 14:00 | Outpatient (RCR) | payer MEDICARE, MEDICAID, SELFPAY ==
[2024-05-19 13:20] VITALS: BP 122/71; PULSE 83; RESP 18; TEMP 36.2; BMI 29.7
--- NOTE | 2024-05-19 16:52 | PCM.WC.HP ---
History of Present Illness Date of Service: 05/19/24 Chief Complaint: Bilateral lower extremity edema History of Wound: KENTON RYAN, is a 58 M who presents today for evaluation of significant lower extremity edema. He is accompanied to his appointment today by his sister Marika who helps with his care, though the patient does live independently. He is known to me from the vascular surgery office where I have seen him for his edema as well and we have venous workup in progress. He has been dealing with significant lower extremity edema for several years, has had a diagnosis of lymphedema for at least the last 3 years. He does have lymphedema pumps at home, and he uses them at least once daily and has for the last 3 years or so. He does typically wear compression stockings though has not been able to get them on lately due to increased edema. His stockings at home have zippers, these are the only type he is able to get on himself. It sounds like he has tried CircAid's in the past and he has limited left upper extremity mobility which makes these difficult to put on. He does spend much of his day sitting in a recliner, elevates his legs is much as he can. He does sleep in the bed. At present, no wounds or weeping areas; however, he does have intermittent episodes of fluid-filled blisters with rupture and lead to wounds along with weeping. He does have skin thickening, skin flaking/dry skin, and some chronic red discoloration. He has not had any prior venous interventions. He does not have any history of VTE. He has seen lymphedema clinic in the past when he was first diagnosed and saw some benefit from this. He also used to follow with physical therapy which helped increase his daily exercise. As it is, his swelling does make it very difficult for him to ambulate. 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 [facility] Medical History Developmental disability Cervical spine disease Atrial septal defect Leg edema Leg swelling Barretts esophagus Congenital heart disease Essential hypertension Home Medications ?Medication ?Instructions ?Recorded ?Last Taken ?Type metoprolol tartrate 50 1 tab PO DAILY 10/04/19 Unknown History mg-hydrochlorothiazide 25 mg tablet montelukast 10 mg tablet 10 mg PO QHS 10/04/19 Unknown History multivitamin 1 tab PO DAILY 10/04/19 Unknown History omeprazole 40 mg capsule,delayed 40 mg PO DAILY 11/08/20 Unknown History release lactobacillus combination no.4 3 3,000 mmu cells PO DAILY 09/19/21 Unknown History billion cell capsule (Probiotic) tamsulosin 0.4 mg capsule 0.4 mg PO QHS 02/11/23 Unknown History potassium chloride 10 mEq 20 meq (2 x 10 mEq) PO BID #360 04/22/23 Unknown Rx tablet,extended release tabs fluticasone propionate 50 1 spray intranasal DAILY 02/02/24 Unknown History mcg/actuation nasal spray,suspension (Allergy Relief (fluticasone)) metamucil fiber bar PO DAILY 02/02/24 Unknown History torsemide 20 mg tablet 20 mg PO DAILY #90 tabs 05/10/24 Unknown Rx Allergy/AdvReac Type Severity Reaction Status Date / Time Penicillins AdvReac Severe SOB Verified 05/19/24 13:37 Family History Mother Hypertension Father Heart disease Sister CVA (cerebral vascular accident) Surgical History History of open heart surgery Hx of eye surgery Hx of neck surgery Fusion of spine, cervical region Social History Smoking Status: Never smoker alcohol intake: never substance use type: does not use Vital Signs Vital Signs Vital Signs: 05/19/24 13:20 Temperature 97.1 F L Temperature Source Temporal Pulse Rate 83 Respiratory Rate 18 Blood Pressure 122/71 H Blood Pressure Mean 88 Blood Pressure Source Monitor Weight Weight: 147 lb 1.272 oz Body Mass Index (BMI) 29.7 Physical Exam Const alert, oriented x3 and no apparent distress General Appearance: cooperative and comfortable HEENT normocephalic, hearing grossly normal bilaterally, external ears normal and external nose normal Nose: external nose normal Eyes General Eye: normal appearance of both eyes Neck General: normal visual inspection and trachea midline Resp normal respiratory effort, normal air movement, no retractions and no use of accessory muscles Effort and Inspection: able to speak in complete sentences Cardio regular rate and regular rhythm Extremity Extremity Narrative: 4+ pitting edema LLE, 3+ pitting edema RLE Skin Skin Narrative: lipodermatosclerosis, skin flaking. No weeping, wounds. Psych mental status grossly normal Appearance: grossly normal Attitude: calm and engaged Activity / Motor Behavior: appropriate eye contact Speech: normal speech Debridement Note Debridement Note No debridement was completed: No debridement was completed today Post-Debridement Measurements and Additional Note: Post-Debridement Measurements/Treatment WC - Nurse 1 - General Ulcer Assessment Start: 05/19/24 13:03 Freq: Status: Active Protocol: VICENTE Activity Type Activity Date Activity User E-sign Co-sign Detail Recorded Client Recorded Date Recorded By Document 05/19/24 13:20 DL [id number] 05/19/24 13:30 DL Edit Result 05/19/24 13:20 DL (1) [id number] 05/19/24 13:33 DL (1) Height => 4 ft 11 in Weight => 147 lb 1.272 oz Weight in Pounds => 147.1 lbs Body Mass Index (BMI) => 29.7 BMI Classification => Overweight BSA - Román => 1.62 05/19/24 13:20 - Today's Visit Information Type of service Initial Visit Arrival Mode Ambulatory Transfer Assistance None Patient Identification Verified (Name & Yes ) Patient Requires Transmission-Based No Precautions Height and Weight Height 4 ft 11 in Weight 147 lb 1.272 oz Weight in Pounds 147.1 lbs Body Mass Index (BMI) 29.7 BMI Classification Overweight BSA - Román 1.62 Vital Signs Temperature (97.8 F-99.1 F) 97.1 F L Temperature Source Temporal Pulse Rate (60-100) 83 Pulse Location Monitor Respiratory Rate (12-18) 18 Respiratory rate source Observation Blood Pressure (90/60-120/80) 122/71 H Blood Pressure Mean 88 Source Monitor Pain Scale: 0-10 Numeric Is Patient Pain Free? Yes Communication Assessment Preferred language Bulgarian Able to Read Yes Able to Write Yes Communication Tools None Right Hearing Abillity Normal Left Hearing Abillity Normal Visual Assistive Devices Glasses Teaching Assessment Preferences Verbal,Written, Audio/Visual Barriers to Learning Knowledge Deficit Readiness To Learn Fair Willingness to Engage in Self Management Low Activies Readiness to Engage in Self Management Med Activities Anxiety Level Calm Cooperation Cooperative Perception Coherent Interest in Health Problem Asks Questions Education Importance Acknowledges Need Does Patient Smoke tobacco or other No substances Smoking Status Never smoker Is Patient Diabetic No Functional Assessment Recent Decline in Ability to Perform Denies Any Declines 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 to contact place of hinduism No Teaching: Wound Center *Welcome to the Wound Center -Person Taught Patient WC - Nurse 1 - General Ulcer Measurement Start: 05/19/24 13:03 Freq: Status: Active Protocol: Activity Type Activity Date Activity User E-sign Co-sign Detail Recorded Client Recorded Date Recorded By Document 05/19/24 13:20 DL [id number] 05/19/24 13:30 DL 05/19/24 13:20 Wound Center Nurse 1 Right Calf (cm) 37 Right Ankle (cm) 31 Right Foot (cm) 44 Left Calf (cm) 26.2 - Nurse 2 - General Ulcer CM Notes Start: 05/19/24 13:03 Freq: Status: Active Protocol: Activity Type Activity Date Activity User E-sign Co-sign Detail Recorded Client Recorded Date Recorded By Document 05/19/24 13:43 DL [id number] 05/19/24 13:47 DL 05/19/24 13:43 Pain Scale: 0-10 Numeric Is Patient Pain Free? Yes - Nurse 3 - General Ulcer D/C NN Start: 05/19/24 13:03 Freq: Status: Active Protocol: Activity Type Activity Date Activity User E-sign Co-sign Detail Recorded Client Recorded Date Recorded By Document 05/19/24 14:10 KW [id number] 05/19/24 14:11 KW 05/19/24 14:10 Wound Care Center Nurse 3 BLE -Multi-Layered Wrap Application Multi-Layer Comp - Bilat ($ ) Pain Scale: 0-10 Numeric Is Patient Pain Free? Yes Charges/Coding Visit Charges Office Visits / Consults: 74188 OV L3 Est 20min Assessment/Plan Assessment/Plan (1) Lymphedema: CODE(S): I89.0 - Lymphedema, not elsewhere classified PLAN: Plan To try to get his edema back under control to the point where he can wear his own compression stockings, will apply bilateral 3M wraps. He is instructed to keep these clean and dry at all times. Will plan for him to return next Thursday for nurse visit to have the wraps changed and then in 2 weeks to see me. He is also advised to elevate his legs at all times of rest, avoid idle prolonged sitting/standing, and participate in regular exercise. Venous reflux studies pending, will follow-up on these results.
[2024-05-24 16:22] VITALS: BP 130/65; PULSE 78; RESP 18; TEMP 35.8; BMI 29.7
== END 2024-05-28 23:59 | disposition home or self-care (01) ==
LOC: WC 14:00
PROVIDERS: PCP Internal Medicine; Referring Provider Physician Assistant; Visit Provider Physician Assistant
DX: I89.0 Lymphedema, not elsewhere classified (principal); R60.0 Localized edema; I10 Essential (primary) hypertension; M79.3 Panniculitis, unspecified; Z79.899 Other long term (current) drug therapy
CPT/HCPCS: 29581; 99213; G0463

== ENCOUNTER → 2024-05-24 | Outpatient (CLI) | payer MEDICARE, MEDICAID, SELFPAY ==
--- NOTE | 2024-05-24 13:03 | VDLE_ITS ---
Reason For Study: Bilateral leg swelling RIGHT LEFT CFV is compressible, spontaneous, phasic, CFV is compressible, spontaneous, phasic, competent and demonstrates normal competent, and demonstrates normal augmentation. augmentation. FV is compressible, spontaneous, phasic, FV is compressible, spontaneous, phasic, competent and demonstrates normal competent and demonstrates normal augmentation. augmentation. POP V is compressible, spontaneous, phasic, POP V is compressible, spontaneous, phasic, competent and demonstrates normal competent and demonstrates normal augmentation. augmentation. T/P Trunk is compressible. T/P Trunk is compressible. PTV is compressible. PTV is compressible. RT PerV is compressible. LT PerV is compressible. SFJ is competent and measures 0.62 cm. SFJ is INCOMPETENT and measures 0.50 cm. GSV proximal thigh measures 0.30 x 0.29 cm. GSV proximal thigh measures 0.47 x 0.47 cm. GSV above knee is INCOMPETENT for greater GSV at knee measures 0.34 x 0.32 cm. than 0.5 seconds. GSV INCOMPETENT throughout for greater than GSV at knee measures 0.24 x 0.26 cm. 0.5 seconds. GSV below knee is competent. Unable to visualize GSV mid-distal calf due ASV mid calf is INCOMPETENT for greater than to vessel size. 0.5 seconds and measures 0.34 x 0.36 cm. ASV distal thigh that feeds varicose veins in SSV at junction is competent and measures calf is competent. 0.22 cm. SSV at junction is competent and measures Procedure 0.32 cm. This is a venous duplex using B-mode, color flow and spectral Doppler. Exam performed in department. Patient was scanned in reverse Trendelenburg position during reflux assessment. VL/Venous Duplex US - Emir Extrem Interpretation Summary Deep veins of the bilateral lower extremities are patent and compressible segme ntally. There is no evidence of bilateral lower extremity deep vein thrombosis. The bilateral great saphenous veins appear patent and compressible segmentally. Positive for reflux in the right great saphenous vein above the knee, accessory saphenous vein in the calf Positive for reflux in the left saphenofemoral junction, great saphenous vein t hroughout. Ordering Physician: Billie Workman Referring Physician: Taylor Enrique M.D. Performed By: Xochilt Olivas RVT
== END | disposition home or self-care (01) ==
LOC: CVS 13:03
PROVIDERS: PCP Internal Medicine; Referring Provider Physician Assistant; Visit Provider Physician Assistant
DX: R60.0 Localized edema (principal); I87.2 Venous insufficiency (chronic) (peripheral); M79.89 Other specified soft tissue disorders
CPT/HCPCS: 93970

== ENCOUNTER 2024-06-27 15:00 | Outpatient (RCR) | payer MEDICARE, MEDICAID, SELFPAY ==
[2024-05-29 00:33] VITALS: BP 130/65; PULSE 78; RESP 18; TEMP 35.8; BMI 29.7
[2024-06-02 14:10] VITALS: BP 118/73; PULSE 82; RESP 18; TEMP 36.1; BMI 29.7
--- NOTE | 2024-06-03 07:18 | PCM.WC.PN ---
History of Present Illness Date of Service: 06/02/24 Chief Complaint: Bilateral lower extremity edema History of Wound: KENTON RYAN, is a 58 M who presents today for evaluation of significant lower extremity edema. He is accompanied to his appointment today by his sister Marika who helps with his care, though the patient does live independently. He is known to me from the vascular surgery office where I have seen him for his edema as well and we have venous workup in progress. He has been dealing with significant lower extremity edema for several years, has had a diagnosis of lymphedema for at least the last 3 years. He does have lymphedema pumps at home, and he uses them at least once daily and has for the last 3 years or so. He does typically wear compression stockings though has not been able to get them on lately due to increased edema. His stockings at home have zippers, these are the only type he is able to get on himself. It sounds like he has tried CircAid's in the past and he has limited left upper extremity mobility which makes these difficult to put on. He does spend much of his day sitting in a recliner, elevates his legs is much as he can. He does sleep in the bed. At present, no wounds or weeping areas; however, he does have intermittent episodes of fluid-filled blisters with rupture and lead to wounds along with weeping. He does have skin thickening, skin flaking/dry skin, and some chronic red discoloration. He has not had any prior venous interventions. He does not have any history of VTE. He has seen lymphedema clinic in the past when he was first diagnosed and saw some benefit from this. He also used to follow with physical therapy which helped increase his daily exercise. As it is, his swelling does make it very difficult for him to ambulate. 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 Subjective Subjective Favian reports he is doing well. He has been tolerating the 3M wraps well, feels like his edema is somewhat better. No wounds. Recall that he utilizes zippered compression stockings as these are all he is able to apply by himself due to limited use of his L arm. Objective Data Objective Data Vital Signs: Vital Signs Temp Pulse Resp BP O2 Del Method 96.9 F L 82 18 118/73 Room Air 06/02/24 14:10 06/02/24 14:10 06/02/24 14:10 06/02/24 14:10 06/02/24 14:10 Oxygen Delivery Method Room Air Weight: 147 lb 1.272 oz Body Mass Index (BMI) 29.7 Charges/Coding Visit Charges Office Visits / Consults: [id number] OV L3 Est 20min Physical Exam Const alert, oriented x3 and no apparent distress General Appearance: cooperative and comfortable HEENT normocephalic, hearing grossly normal bilaterally, external ears normal and external nose normal Nose: external nose normal Eyes General Eye: normal appearance of both eyes Neck General: normal visual inspection and trachea midline Resp normal respiratory effort, normal air movement, no retractions and no use of accessory muscles Effort and Inspection: able to speak in complete sentences Cardio regular rate and regular rhythm Extremity Extremity Narrative: Lower extremity edema with circumference measurements: R Ankle: 26cm R Calf: 34 cm L Ankle: 35 cm L Calf: 31.6 cm Skin Skin Narrative: lipodermatosclerosis, skin flaking. No weeping, wounds. Psych mental status grossly normal Appearance: grossly normal Attitude: calm and engaged Activity / Motor Behavior: appropriate eye contact Speech: normal speech Debridement Note Debridement Note No debridement was completed: No debridement was completed today Post-Debridement Measurements and Additional Note: Post-Debridement Measurements/Treatment - Nurse 1 - General Ulcer Assessment Start: 06/02/24 14:10 Freq: Status: Active Protocol: SHAYE.[email or web address] Activity Type Activity Date Activity User E-sign Co-sign Detail Recorded Client Recorded Date Recorded By Document 06/02/24 14:10 [id number] 06/02/24 14:13 06/02/24 14:10 - Today's Visit Information Type of service Follow-up Visit (Physician/SUPERVIS[employer] ) Arrival Mode Ambulatory Accompanied by SISTER Patient Identification Verified (Name & Yes ) Patient Requires Transmission-Based No Precautions Safety Precautions Fall Prevention Height and Weight Body Mass Index (BMI) 29.7 BMI Classification Overweight Vital Signs Temperature (97.8 F-99.1 F) 96.9 F L Temperature Source Temporal Pulse Rate (60-100) 82 Pulse Location Monitor Respiratory Rate (12-18) 18 Respiratory rate source Observation Oxygen Delivery Method Room Air Blood Pressure (90/60-120/80) 118/73 Blood Pressure Mean (mm Hg) 88 Source Monitor Position Sitting Blood Pressure Location Left Arm History Since Last Visit- (Skip if this is Patient's initial visit) Have you changed medications since your No last visit? Any new allergies or adverse reactions No Had a fall/change in ADL's that may No increase risk of falls Signs or symptoms of abuse and/or No neglect since last visit Have you been in the hospital since your No last visit? Has dressing in place as prescribed Yes Has compression in place as prescribed Yes Has offloadiing in place as prescribed No Experienced any changes in pain level or No management Left Footwear Regular Shoe Right Footwear Regular Shoe Pain Scale: 0-10 Numeric Is Patient Pain Free? Yes - Nurse 1 - General Ulcer Measurement Start: 06/02/24 14:10 Freq: Status: Active Protocol: Activity Type Activity Date Activity User E-sign Co-sign Detail Recorded Client Recorded Date Recorded By Document 06/02/24 14:13 DS [id number] 06/02/24 14:21 DS 06/02/24 14:13 Wound Center Nurse 1 Lower Limb Edema Present Yes Right Calf (cm) 34.0 Right Ankle (cm) 26.0 Left Calf (cm) 35 Left Ankle (cm) 31.6 - Nurse 2 - General Ulcer CM Notes Start: 06/02/24 14:10 Freq: Status: Active Protocol: Activity Type Activity Date Activity User E-sign Co-sign Detail Recorded Client Recorded Date Recorded By Document 06/02/24 14:35 [id number] 06/02/24 14:43 06/02/24 14:35 Pain Scale: 0-10 Numeric Is Patient Pain Free? Yes - Nurse 3 - General Ulcer D/C NN Start: 06/02/24 14:10 Freq: Status: Active Protocol: Activity Type Activity Date Activity User E-sign Co-sign Detail Recorded Client Recorded Date Recorded By Document 06/02/24 15:01 DS [id number] 06/02/24 15:02 DS 06/02/24 15:01 Wound Care Center Nurse 3 BLE -Multi-Layered Wrap Application Multi-Layer Comp - Bilat ($ ) Pain Scale: 0-10 Numeric Is Patient Pain Free? Yes WC - Visit Discharge Discharge Condition Stable Ambulatory Status Ambulatory Transportation Private Auto Clinical Summary of Care Provided Yes Assessment/Plan Assessment/Plan (1) Lymphedema: CODE(S): I89.0 - Lymphedema, not elsewhere classified PLAN: Plan To try to get his edema back under control to the point where he can wear his own compression stockings, will apply bilateral 3M wraps. He is instructed to keep these clean and dry at all times. He is also advised to elevate his legs at all times of rest, avoid idle prolonged sitting/standing, and participate in regular exercise. 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 Could consider GSV ablation though he does certainly have lymphedema as well so difficult to predict how much benefit would be gained from ablation with respect to edema. Will plan for nurse visit Thu/ for 3M wrap change, return to see me on . He is instructed to bring his compression stockings to his next visit with me so we can see if he is now able to get these on.
[2024-06-06 10:16] VITALS: BP 121/74; PULSE 81; RESP 18; TEMP 36.2; BMI 29.7
[2024-06-09 13:32] VITALS: BP 118/69; PULSE 77; RESP 16; TEMP 36.4; BMI 29.7
--- NOTE | 2024-06-09 14:49 | PCM.WC.PN ---
History of Present Illness Date of Service: 06/09/24 Chief Complaint: Bilateral lower extremity edema History of Wound: KENTON RYAN, is a 58 M who presents today for evaluation of significant lower extremity edema. He is accompanied to his appointment today by his sister Marika who helps with his care, though the patient does live independently. He is known to me from the vascular surgery office where I have seen him for his edema as well and we have venous workup in progress. He has been dealing with significant lower extremity edema for several years, has had a diagnosis of lymphedema for at least the last 3 years. He does have lymphedema pumps at home, and he uses them at least once daily and has for the last 3 years or so. He does typically wear compression stockings though has not been able to get them on lately due to increased edema. His stockings at home have zippers, these are the only type he is able to get on himself. It sounds like he has tried CircAid's in the past and he has limited left upper extremity mobility which makes these difficult to put on. He does spend much of his day sitting in a recliner, elevates his legs is much as he can. He does sleep in the bed. At present, no wounds or weeping areas; however, he does have intermittent episodes of fluid-filled blisters with rupture and lead to wounds along with weeping. He does have skin thickening, skin flaking/dry skin, and some chronic red discoloration. He has not had any prior venous interventions. He does not have any history of VTE. He has seen lymphedema clinic in the past when he was first diagnosed and saw some benefit from this. He also used to follow with physical therapy which helped increase his daily exercise. As it is, his swelling does make it very difficult for him to ambulate. 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 Subjective Subjective His BLE edema continues to improve with compression wraps. Still too much edema for him to easily apply his own compression stockings. No new concerns. Objective Data Objective Data Vital Signs: Vital Signs Temp Pulse Resp BP O2 Del Method 97.5 F L 77 16 118/69 Room Air 06/09/24 13:32 06/09/24 13:32 06/09/24 13:32 06/09/24 13:32 06/09/24 13:32 Oxygen Delivery Method Room Air Weight: 147 lb 1.272 oz Body Mass Index (BMI) 29.7 Charges/Coding Visit Charges Office Visits / Consults: 27358 OV L3 Est 20min Physical Exam Const alert, oriented x3 and no apparent distress General Appearance: cooperative and comfortable HEENT normocephalic, hearing grossly normal bilaterally, external ears normal and external nose normal Nose: external nose normal Eyes General Eye: normal appearance of both eyes Neck General: normal visual inspection and trachea midline Resp normal respiratory effort, normal air movement, no retractions and no use of accessory muscles Effort and Inspection: able to speak in complete sentences Cardio regular rate and regular rhythm Extremity Extremity Narrative: Lower extremity edema with circumference measurements: R Ankle: 26cm R Calf: 34 cm L Ankle: 35 cm L Calf: 31.6 cm Skin Skin Narrative: lipodermatosclerosis, skin flaking. No weeping, wounds. Psych mental status grossly normal Appearance: grossly normal Attitude: calm and engaged Activity / Motor Behavior: appropriate eye contact Speech: normal speech Debridement Note Debridement Note No debridement was completed: No debridement was completed today Post-Debridement Measurements and Additional Note: Post-Debridement Measurements/Treatment - Nurse 1 - General Ulcer Assessment Start: 06/02/24 14:10 Freq: Status: Active Protocol: VICENTE Activity Type Activity Date Activity User E-sign Co-sign Detail Recorded Client Recorded Date Recorded By Document 06/02/24 14:10 DS [id number] 06/02/24 14:13 DS Document 06/06/24 10:16 DL [id number] 06/06/24 10:25 DL Document 06/09/24 13:32 KW [id number] 06/09/24 13:43 KW 06/02/24 06/06/24 06/09/24 14:10 10:16 13:32 - Today's Visit Information Type of service Follow-up Visit Nurse-only Follow-up Visit (Physician/DENTAL LABORATORY TECHNICIAN APPRENTICE Visit (Physician/DENTAL LABORATORY TECHNICIAN APPRENTICE ) ) Arrival Mode Ambulatory Ambulatory Ambulatory Transfer Assistance None Accompanied by SISTER Patient Identification Verified (Name & Yes Yes Yes ) Patient Requires Transmission-Based No No Precautions Safety Precautions Fall Prevention Height and Weight Body Mass Index (BMI) 29.7 29.7 29.7 BMI Classification Overweight Overweight Overweight Vital Signs Temperature (97.8 F-99.1 F) 96.9 F L 97.2 F L 97.5 F L Temperature Source Temporal Temporal Temporal Pulse Rate (60-100) 82 81 77 Pulse Location Monitor Monitor Monitor Respiratory Rate (12-18) 18 18 16 Respiratory rate source Observation Observation Observation Oxygen Delivery Method Room Air Room Air Blood Pressure (90/60-120/80) 118/73 121/74 H 118/69 Blood Pressure Mean (mm Hg) 88 89 85 Source Monitor Monitor Monitor Position Sitting Sitting Blood Pressure Location Left Arm Left Arm History Since Last Visit- (Skip if this is Patient's initial visit) Have you changed medications since your No No No last visit? Any new allergies or adverse reactions No No No Had a fall/change in ADL's that may No No No increase risk of falls Signs or symptoms of abuse and/or No No No neglect since last visit Have you been in the hospital since your No No No last visit? Has dressing in place as prescribed Yes Yes Yes Has compression in place as prescribed Yes Yes Yes Has offloadiing in place as prescribed No N/A N/A Experienced any changes in pain level or No No No management Left Footwear Regular Shoe Regular Shoe Right Footwear Regular Shoe Regular Shoe Pain Scale: 0-10 Numeric Is Patient Pain Free? Yes Yes Yes WC - Nurse 1 - General Ulcer Measurement Start: 06/02/24 14:10 Freq: Status: Active Protocol: Activity Type Activity Date Activity User E-sign Co-sign Detail Recorded Client Recorded Date Recorded By Document 06/02/24 14:13 DS [id number] 06/02/24 14:21 DS Document 06/06/24 10:16 DL [id number] 06/06/24 10:25 DL Document 06/09/24 13:32 KW [id number] 06/09/24 13:43 KW 06/02/24 06/06/24 06/09/24 14:13 10:16 13:32 Wound Center Nurse 1 Lower Limb Edema Present Yes Right Calf (cm) 34.0 35.5 33 Right Ankle (cm) 26.0 25.5 25 Left Calf (cm) 35 35.5 34 Left Ankle (cm) 31.6 28.5 28.5 WC - Nurse 2 - General Ulcer CM Notes Start: 06/02/24 14:10 Freq: Status: Active Protocol: Activity Type Activity Date Activity User E-sign Co-sign Detail Recorded Client Recorded Date Recorded By Document 06/02/24 14:35 GM [id number] 06/02/24 14:43 GM Document 06/09/24 14:08 GM [id number] 06/09/24 14:12 GM 06/02/24 06/09/24 14:35 14:08 Pain Scale: 0-10 Numeric Is Patient Pain Free? Yes Yes WC - Nurse 3 - General Ulcer D/C NN Start: 06/02/24 14:10 Freq: Status: Active Protocol: Activity Type Activity Date Activity User E-sign Co-sign Detail Recorded Client Recorded Date Recorded By Document 06/02/24 15:01 DS [id number] 06/02/24 15:02 DS Document 06/06/24 10:16 DL [id number] 06/06/24 10:25 DL Document 06/09/24 14:29 BMF [id number] 06/09/24 14:29 BMF 06/02/24 06/06/24 06/09/24 15:01 10:16 14:29 Wound Care Center Nurse 3 BLE -Multi-Layered Wrap Application Multi-Layer Multi-Layer Multi-Layer Comp - Bilat ($ Comp - Bilat ($ Comp - Bilat ($ ) ) ) Treatment Response Procedure Procedure Tolerated Well Tolerated Well Vital Signs Temperature (97.8 F-99.1 F) 97.2 F L Temperature Source Temporal Pulse Rate (60-100) 81 Pulse Location Monitor Respiratory Rate (12-18) 18 Respiratory rate source Observation Blood Pressure (90/60-120/80) 121/74 H Blood Pressure Mean (mm Hg) 89 Source Monitor Pain Scale: 0-10 Numeric Is Patient Pain Free? Yes Yes Yes WC - Visit Discharge Discharge Condition Stable Stable Stable Ambulatory Status Ambulatory Ambulatory Ambulatory Transportation Private Auto Private Auto Private Auto Accompanied by family dad Clinical Summary of Care Provided Yes Assessment/Plan Assessment/Plan (1) Lymphedema: CODE(S): I89.0 - Lymphedema, not elsewhere classified PLAN: Plan His lower leg measurements continue to improve, edema continues to reduce with wraps. Will continue another week of bilateral 3M wraps. He is instructed to keep these clean and dry at all times. He is also advised to elevate his legs at all times of rest, avoid idle prolonged sitting/standing, and participate in regular exercise. 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 Could consider GSV ablation though he does certainly have lymphedema as well so difficult to predict how much benefit would be gained from ablation with respect to edema. Will plan for nurse visit Thu/ for 3M wrap change, return to see me on . He is instructed to bring his compression stockings to his next visit with me so we can see if he is now able to get these on.
[2024-06-13 10:46] VITALS: BP 121/65; PULSE 78; RESP 16; TEMP 36.4; BMI 29.7
[2024-06-16 13:56] VITALS: BP 123/66; PULSE 68; RESP 20; TEMP 36.6; BMI 29.7
--- NOTE | 2024-06-16 17:28 | PN.PCM_ITS ---
History of Present Illness Date of Service: 06/16/24 Chief Complaint: Bilateral lower extremity edema History of Wound: KENTON RYAN, is a 58 M who presents today for evaluation of significant lower extremity edema. He is accompanied to his appointment today by his sister Marika who helps with his care, though the patient does live independently. He is known to me from the vascular surgery office where I have seen him for his edema as well and we have venous workup in progress. He has been dealing with significant lower extremity edema for several years, has had a diagnosis of lymphedema for at least the last 3 years. He does have lymphedema pumps at home, and he uses them at least once daily and has for the last 3 years or so. He does typically wear compression stockings though has not been able to get them on lately due to increased edema. His stockings at home have zippers, these are the only type he is able to get on himself. It sounds like he has tried CircAid's in the past and he has limited left upper extremity mobility which makes these difficult to put on. He does spend much of his day sitting in a recliner, elevates his legs is much as he can. He does sleep in the bed. At present, no wounds or weeping areas; however, he does have intermittent episodes of fluid-filled blisters with rupture and lead to wounds along with weeping. He does have skin thickening, skin flaking/dry skin, and some chronic red discoloration. He has not had any prior venous interventions. He does not have any history of VTE. He has seen lymphedema clinic in the past when he was first diagnosed and saw some benefit from this. He also used to follow with physical therapy which helped increase his daily exercise. As it is, his swelling does make it very difficult for him to ambulate. 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 Subjective Subjective We are continuing to see significant reduction in his edema/leg cirumference with use of 3M wraps. He continues to tolerate these well. No wounds. No new complaints/concerns. His father and sister were with him at his appt today as usual. Objective Data Objective Data Vital Signs: Vital Signs Temp Pulse Resp BP O2 Del Method 97.8 F 68 20 H 123/66 H Room Air 06/16/24 13:56 06/16/24 13:56 06/16/24 13:56 06/16/24 13:56 06/13/24 10:46 Oxygen Delivery Method Room Air Weight: 147 lb 1.272 oz Body Mass Index (BMI) 29.7 Charges/Coding Visit Charges Office Visits / Consults: [id number] OV L3 Est 20min Physical Exam Const alert, oriented x3 and no apparent distress General Appearance: cooperative and comfortable HEENT normocephalic, hearing grossly normal bilaterally, external ears normal and external nose normal Nose: external nose normal Eyes General Eye: normal appearance of both eyes Neck General: normal visual inspection and trachea midline Resp normal respiratory effort, normal air movement, no retractions and no use of accessory muscles Effort and Inspection: able to speak in complete sentences Cardio regular rate and regular rhythm Extremity Extremity Narrative: Lower extremity edema with circumference measurements: RLE circumference decreased by 2cm from last week; LLE circumference decreased 3 cm at the ankle and 4 cm at the calf R Ankle: 24 cm R Calf: 32 cm L Ankle: 32.5 cm L Calf: 26.8 cm Skin Skin Narrative: lipodermatosclerosis, skin flaking. No weeping, wounds. Psych mental status grossly normal Appearance: grossly normal Attitude: calm and engaged Activity / Motor Behavior: appropriate eye contact Speech: normal speech Debridement Note Debridement Note No debridement was completed: No debridement was completed today Post-Debridement Measurements and Additional Note: Post-Debridement Measurements/Treatment - Nurse 1 - General Ulcer Assessment Start: 06/02/24 14:10 Freq: Status: Active Protocol: SHAYE.[email or web address] Activity Type Activity Date Activity User E-sign Co-sign Detail Recorded Client Recorded Date Recorded By Document 06/02/24 14:10 DS [id number] 06/02/24 14:13 DS Document 06/06/24 10:16 DL [id number] 06/06/24 10:25 DL Document 06/09/24 13:32 KW [id number] 06/09/24 13:43 KW Document 06/13/24 10:46 BMF [id number] 06/13/24 10:50 BMF Document 06/16/24 13:56 DL [id number] 06/16/24 14:01 DL 06/02/24 06/06/24 06/09/24 14:10 10:16 13:32 - Today's Visit Information Type of service Follow-up Visit Nurse-only Follow-up Visit (Physician/JUVENILE COUNSELOR Visit (Physician/JUVENILE COUNSELOR ) ) Arrival Mode Ambulatory Ambulatory Ambulatory Transfer Assistance None Accompanied by SISTER Patient Identification Verified (Name & Yes Yes Yes ) Patient Requires Transmission-Based No No Precautions Safety Precautions Fall Prevention Height and Weight Body Mass Index (BMI) 29.7 29.7 29.7 BMI Classification Overweight Overweight Overweight Vital Signs Temperature (97.8 F-99.1 F) 96.9 F L 97.2 F L 97.5 F L Temperature Source Temporal Temporal Temporal Pulse Rate (60-100) 82 81 77 Pulse Location Monitor Monitor Monitor Respiratory Rate (12-18) 18 18 16 Respiratory rate source Observation Observation Observation Oxygen Delivery Method Room Air Room Air Blood Pressure (90/60-120/80) 118/73 121/74 H 118/69 Blood Pressure Mean (mm Hg) 88 89 85 Source Monitor Monitor Monitor Position Sitting Sitting Blood Pressure Location Left Arm Left Arm History Since Last Visit- (Skip if this is Patient's initial visit) Have you changed medications since your No No No last visit? Any new allergies or adverse reactions No No No Had a fall/change in ADL's that may No No No increase risk of falls Signs or symptoms of abuse and/or No No No neglect since last visit Have you been in the hospital since your No No No last visit? Has dressing in place as prescribed Yes Yes Yes Has compression in place as prescribed Yes Yes Yes Has offloadiing in place as prescribed No N/A N/A Experienced any changes in pain level or No No No management Left Footwear Regular Shoe Regular Shoe Right Footwear Regular Shoe Regular Shoe Pain Scale: 0-10 Numeric Is Patient Pain Free? Yes Yes Yes 06/13/24 06/16/24 10:46 13:56 WC - Today's Visit Information Type of service Nurse-only Follow-up Visit Visit (Physician/JUVENILE COUNSELOR ) Arrival Mode Ambulatory Ambulatory Transfer Assistance None None Accompanied by TRANSPORT PERSON Patient Identification Verified (Name & Yes Yes ) Patient Requires Transmission-Based No No Precautions Safety Precautions Height and Weight Body Mass Index (BMI) 29.7 29.7 BMI Classification Overweight Overweight Vital Signs Temperature (97.8 F-99.1 F) 97.5 F L 97.8 F Temperature Source Temporal Temporal Pulse Rate (60-100) 78 68 Pulse Location Monitor Monitor Respiratory Rate (12-18) 16 20 H Respiratory rate source Observation Observation Oxygen Delivery Method Room Air Blood Pressure (90/60-120/80) 121/65 H 123/66 H Blood Pressure Mean (mm Hg) 83 85 Source Monitor Monitor Position Sitting Blood Pressure Location Right Arm History Since Last Visit- (Skip if this is Patient's initial visit) Have you changed medications since your No No last visit? Any new allergies or adverse reactions No No Had a fall/change in ADL's that may No No increase risk of falls Signs or symptoms of abuse and/or No No neglect since last visit Have you been in the hospital since your No last visit? Has dressing in place as prescribed Yes Has compression in place as prescribed Yes Yes Has offloadiing in place as prescribed N/A N/A Experienced any changes in pain level or No No management Left Footwear Custom Shoe Right Footwear Custom Shoe Pain Scale: 0-10 Numeric Is Patient Pain Free? Yes Yes WC - Nurse 1 - General Ulcer Measurement Start: 06/02/24 14:10 Freq: Status: Active Protocol: Activity Type Activity Date Activity User E-sign Co-sign Detail Recorded Client Recorded Date Recorded By Document 06/02/24 14:13 DS [id number] 06/02/24 14:21 DS Document 06/06/24 10:16 DL [id number] 06/06/24 10:25 DL Document 06/09/24 13:32 KW [id number] 06/09/24 13:43 KW Document 06/13/24 10:46 BMF [id number] 06/13/24 10:50 BMF Document 06/16/24 13:56 DL [id number] 06/16/24 14:01 DL 06/02/24 06/06/24 06/09/24 14:13 10:16 13:32 Wound Center Nurse 1 Lower Limb Edema Present Yes Right Calf (cm) 34.0 35.5 33 Right Ankle (cm) 26.0 25.5 25 Right Foot (cm) Left Calf (cm) 35 35.5 34 Left Ankle (cm) 31.6 28.5 28.5 06/13/24 06/16/24 10:46 13:56 Wound Center Nurse 1 Lower Limb Edema Present Yes Right Calf (cm) 32.6 32 Right Ankle (cm) 24 24 Right Foot (cm) 32.5 Left Calf (cm) 33.2 26.8 Left Ankle (cm) 26.3 WC - Nurse 2 - General Ulcer CM Notes Start: 06/02/24 14:10 Freq: Status: Active Protocol: Activity Type Activity Date Activity User E-sign Co-sign Detail Recorded Client Recorded Date Recorded By Document 06/02/24 14:35 GM [id number] 06/02/24 14:43 GM Document 06/09/24 14:08 GM [id number] 06/09/24 14:12 GM Document 06/16/24 14:36 GM [id number] 06/16/24 14:36 GM 06/02/24 06/09/24 06/16/24 14:35 14:08 14:36 Pain Scale: 0-10 Numeric Is Patient Pain Free? Yes Yes Yes WC - Nurse 3 - General Ulcer D/C NN Start: 06/02/24 14:10 Freq: Status: Active Protocol: Activity Type Activity Date Activity User E-sign Co-sign Detail Recorded Client Recorded Date Recorded By Document 06/02/24 15:01 DS [id number] 06/02/24 15:02 DS Document 06/06/24 10:16 DL [id number] 06/06/24 10:25 DL Document 06/09/24 14:29 BMF [id number] 06/09/24 14:29 BMF Document 06/13/24 10:46 BMF [id number] 06/13/24 10:50 BMF Document 06/16/24 15:00 KW [id number] 06/16/24 15:01 KW 06/02/24 06/06/24 06/09/24 15:01 10:16 14:29 Wound Care Center Nurse 3 BLE -Multi-Layered Wrap Application Multi-Layer Multi-Layer Multi-Layer Comp - Bilat ($ Comp - Bilat ($ Comp - Bilat ($ ) ) ) -Other Treatment Response Procedure Procedure Tolerated Well Tolerated Well Vital Signs Temperature (97.8 F-99.1 F) 97.2 F L Temperature Source Temporal Pulse Rate (60-100) 81 Pulse Location Monitor Respiratory Rate (12-18) 18 Respiratory rate source Observation Oxygen Delivery Method Blood Pressure (90/60-120/80) 121/74 H Blood Pressure Mean (mm Hg) 89 Source Monitor Position Blood Pressure Location Pain Scale: 0-10 Numeric Is Patient Pain Free? Yes Yes Yes WC - Visit Discharge Discharge Condition Stable Stable Stable Ambulatory Status Ambulatory Ambulatory Ambulatory Transportation Private Auto Private Auto Private Auto Accompanied by family dad Medication Reconcilliation completed & provided to patient/care provider Clinical Summary of Care Provided Yes Other 06/13/24 06/16/24 10:46 15:00 Wound Care Center Nurse 3 BLE -Multi-Layered Wrap Application Multi-Layer Multi-Layer Comp - Bilat ($ Comp - Bilat ($ ) ) -Other LOTION FIRST Treatment Response Procedure Tolerated Well Vital Signs Temperature (97.8 F-99.1 F) 97.5 F L Temperature Source Temporal Pulse Rate (60-100) 78 Pulse Location Monitor Respiratory Rate (12-18) 16 Respiratory rate source Observation Oxygen Delivery Method Room Air Blood Pressure (90/60-120/80) 121/65 H Blood Pressure Mean (mm Hg) 83 Source Monitor Position Sitting Blood Pressure Location Right Arm Pain Scale: 0-10 Numeric Is Patient Pain Free? Yes Yes WC - Visit Discharge Discharge Condition Stable Stable Ambulatory Status Ambulatory Ambulatory Transportation TRANSPORT Private Auto Accompanied by Medication Reconcilliation completed & No provided to patient/care provider Clinical Summary of Care Provided Yes Other [facility] Assessment/Plan Assessment/Plan (1) Lymphedema: CODE(S): I89.0 - Lymphedema, not elsewhere classified PLAN: Plan His lower leg measurements continue to improve, edema continues to reduce with wraps. Will continue another week of bilateral 3M wraps. He is instructed to keep these clean and dry at all times. He is also advised to elevate his legs at all times of rest, avoid idle prolonged sitting/standing, and participate in regular exercise. 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 Could consider GSV ablation though he does certainly have lymphedema as well so difficult to predict how much benefit would be gained from ablation with respect to edema (there would be more clear benefit if he were to develop a wound in GSV distribution). He will return in 1 week, sooner as needed.
[2024-06-23 13:32] VITALS: BP 125/66; PULSE 74; RESP 16; TEMP 36; BMI 29.7
--- NOTE | 2024-06-23 14:06 | PCM.WC.PN ---
History of Present Illness Date of Service: 06/23/24 Chief Complaint: Bilateral lower extremity edema History of Wound: KENTON RYAN, is a 58 M who presents today for evaluation of significant lower extremity edema. He is accompanied to his appointment today by his sister Marika who helps with his care, though the patient does live independently. He is known to me from the vascular surgery office where I have seen him for his edema as well and we have venous workup in progress. He has been dealing with significant lower extremity edema for several years, has had a diagnosis of lymphedema for at least the last 3 years. He does have lymphedema pumps at home, and he uses them at least once daily and has for the last 3 years or so. He does typically wear compression stockings though has not been able to get them on lately due to increased edema. His stockings at home have zippers, these are the only type he is able to get on himself. It sounds like he has tried CircAid's in the past and he has limited left upper extremity mobility which makes these difficult to put on. He does spend much of his day sitting in a recliner, elevates his legs is much as he can. He does sleep in the bed. At present, no wounds or weeping areas; however, he does have intermittent episodes of fluid-filled blisters with rupture and lead to wounds along with weeping. He does have skin thickening, skin flaking/dry skin, and some chronic red discoloration. He has not had any prior venous interventions. He does not have any history of VTE. He has seen lymphedema clinic in the past when he was first diagnosed and saw some benefit from this. He also used to follow with physical therapy which helped increase his daily exercise. As it is, his swelling does make it very difficult for him to ambulate. 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 Subjective Subjective We are continuing to see reduction in his edema/leg circumference with use of 3M wraps. He continues to tolerate these well. No wounds. No new complaints/concerns. We tried to have him apply his measured, zippered compression stockings while here. At his current level of edema, he is still unable to successfully apply these himself. Objective Data Objective Data Vital Signs: Vital Signs Temp Pulse Resp BP O2 Del Method 96.8 F L 74 16 125/66 H Room Air 06/23/24 13:32 06/23/24 13:32 06/23/24 13:32 06/23/24 13:32 06/23/24 13:32 Oxygen Delivery Method Room Air Weight: 147 lb 1.272 oz Body Mass Index (BMI) 29.7 Charges/Coding Visit Charges Office Visits / Consults: 51602 OV L3 Est 20min Physical Exam Const alert, oriented x3 and no apparent distress General Appearance: cooperative and comfortable HEENT normocephalic, hearing grossly normal bilaterally, external ears normal and external nose normal Nose: external nose normal Eyes General Eye: normal appearance of both eyes Neck General: normal visual inspection and trachea midline Resp normal respiratory effort, normal air movement, no retractions and no use of accessory muscles Effort and Inspection: able to speak in complete sentences Cardio regular rate and regular rhythm Extremity Extremity Narrative: Lower extremity edema improving with circumference measurements as per clinical panel. Skin Skin Narrative: lipodermatosclerosis, skin flaking. No weeping, wounds. Psych mental status grossly normal Appearance: grossly normal Attitude: calm and engaged Activity / Motor Behavior: appropriate eye contact Speech: normal speech Debridement Note Debridement Note No debridement was completed: No debridement was completed today Post-Debridement Measurements and Additional Note: Post-Debridement Measurements/Treatment - Nurse 1 - General Ulcer Assessment Start: 06/02/24 14:10 Freq: Status: Active Protocol: VICENTE Activity Type Activity Date Activity User E-sign Co-sign Detail Recorded Client Recorded Date Recorded By Document 06/02/24 14:10 DS [id number] 06/02/24 14:13 DS Document 06/06/24 10:16 DL [id number] 06/06/24 10:25 DL Document 06/09/24 13:32 KW [id number] 06/09/24 13:43 KW Document 06/13/24 10:46 BMF [id number] 06/13/24 10:50 BMF Document 06/16/24 13:56 DL [id number] 06/16/24 14:01 DL Document 06/23/24 13:32 KW [id number] 06/23/24 13:43 KW 06/02/24 06/06/24 06/09/24 14:10 10:16 13:32 - Today's Visit Information Type of service Follow-up Visit Nurse-only Follow-up Visit (Physician/FIREPERSON Visit (Physician/FIREPERSON ) ) Arrival Mode Ambulatory Ambulatory Ambulatory Transfer Assistance None Accompanied by SISTER Patient Identification Verified (Name & Yes Yes Yes ) Patient Requires Transmission-Based No No Precautions Safety Precautions Fall Prevention Height and Weight Body Mass Index (BMI) 29.7 29.7 29.7 BMI Classification Overweight Overweight Overweight Vital Signs Temperature (97.8 F-99.1 F) 96.9 F L 97.2 F L 97.5 F L Temperature Source Temporal Temporal Temporal Pulse Rate (60-100) 82 81 77 Pulse Location Monitor Monitor Monitor Respiratory Rate (12-18) 18 18 16 Respiratory rate source Observation Observation Observation Oxygen Delivery Method Room Air Room Air Blood Pressure (90/60-120/80) 118/73 121/74 H 118/69 Blood Pressure Mean (mm Hg) 88 89 85 Source Monitor Monitor Monitor Position Sitting Sitting Blood Pressure Location Left Arm Left Arm History Since Last Visit- (Skip if this is Patient's initial visit) Have you changed medications since your No No No last visit? Any new allergies or adverse reactions No No No Had a fall/change in ADL's that may No No No increase risk of falls Signs or symptoms of abuse and/or No No No neglect since last visit Have you been in the hospital since your No No No last visit? Has dressing in place as prescribed Yes Yes Yes Has compression in place as prescribed Yes Yes Yes Has offloadiing in place as prescribed No N/A N/A Experienced any changes in pain level or No No No management Left Footwear Regular Shoe Regular Shoe Right Footwear Regular Shoe Regular Shoe Pain Scale: 0-10 Numeric Is Patient Pain Free? Yes Yes Yes 06/13/24 06/16/24 06/23/24 10:46 13:56 13:32 WC - Today's Visit Information Type of service Nurse-only Follow-up Visit Follow-up Visit Visit (Physician/FIREPERSON (Physician/FIREPERSON ) ) Arrival Mode Ambulatory Ambulatory Ambulatory Transfer Assistance None None Accompanied by TRANSPORT PERSON Patient Identification Verified (Name & Yes Yes Yes ) Patient Requires Transmission-Based No No Precautions Safety Precautions Height and Weight Body Mass Index (BMI) 29.7 29.7 29.7 BMI Classification Overweight Overweight Overweight Vital Signs Temperature (97.8 F-99.1 F) 97.5 F L 97.8 F 96.8 F L Temperature Source Temporal Temporal Temporal Pulse Rate (60-100) 78 68 74 Pulse Location Monitor Monitor Respiratory Rate (12-18) 16 20 H 16 Respiratory rate source Observation Observation Observation Oxygen Delivery Method Room Air Room Air Blood Pressure (90/60-120/80) 121/65 H 123/66 H 125/66 H Blood Pressure Mean (mm Hg) 83 85 85 Source Monitor Monitor Monitor Position Sitting Semi-Fowlers Blood Pressure Location Right Arm Left Arm History Since Last Visit- (Skip if this is Patient's initial visit) Have you changed medications since your No No No last visit? Any new allergies or adverse reactions No No No Had a fall/change in ADL's that may No No No increase risk of falls Signs or symptoms of abuse and/or No No No neglect since last visit Have you been in the hospital since your No No last visit? Has dressing in place as prescribed Yes Yes Has compression in place as prescribed Yes Yes Yes Has offloadiing in place as prescribed N/A N/A N/A Experienced any changes in pain level or No No No management Left Footwear Custom Shoe Regular Shoe Right Footwear Custom Shoe Regular Shoe Pain Scale: 0-10 Numeric Is Patient Pain Free? Yes Yes Yes WC - Nurse 1 - General Ulcer Measurement Start: 06/02/24 14:10 Freq: Status: Active Protocol: Activity Type Activity Date Activity User E-sign Co-sign Detail Recorded Client Recorded Date Recorded By Document 06/02/24 14:13 DS [id number] 06/02/24 14:21 DS Document 06/06/24 10:16 DL [id number] 06/06/24 10:25 DL Document 06/09/24 13:32 KW [id number] 06/09/24 13:43 KW Document 06/13/24 10:46 BMF [id number] 06/13/24 10:50 BMF Document 06/16/24 13:56 DL [id number] 06/16/24 14:01 DL Document 06/23/24 13:32 KW [id number] 06/23/24 13:43 KW 06/02/24 06/06/24 06/09/24 14:13 10:16 13:32 Wound Center Nurse 1 Lower Limb Edema Present Yes Right Calf (cm) 34.0 35.5 33 Right Ankle (cm) 26.0 25.5 25 Right Foot (cm) Left Calf (cm) 35 35.5 34 Left Ankle (cm) 31.6 28.5 28.5 06/13/24 06/16/24 06/23/24 10:46 13:56 13:32 Wound Center Nurse 1 Lower Limb Edema Present Yes Right Calf (cm) 32.6 32 34 Right Ankle (cm) 24 24 24 Right Foot (cm) 32.5 Left Calf (cm) 33.2 26.8 32 Left Ankle (cm) 26.3 25.5 WC - Nurse 2 - General Ulcer CM Notes Start: 06/02/24 14:10 Freq: Status: Active Protocol: Activity Type Activity Date Activity User E-sign Co-sign Detail Recorded Client Recorded Date Recorded By Document 06/02/24 14:35 GM [id number] 06/02/24 14:43 GM Document 06/09/24 14:08 GM [id number] 06/09/24 14:12 GM Document 06/16/24 14:36 GM [id number] 06/16/24 14:36 GM Document 06/23/24 13:48 GM [id number] 06/23/24 13:49 GM 06/02/24 06/09/24 06/16/24 14:35 14:08 14:36 Pain Scale: 0-10 Numeric Is Patient Pain Free? Yes Yes Yes 06/23/24 13:48 Pain Scale: 0-10 Numeric Is Patient Pain Free? Yes - Nurse 3 - General Ulcer D/C NN Start: 06/02/24 14:10 Freq: Status: Active Protocol: Activity Type Activity Date Activity User E-sign Co-sign Detail Recorded Client Recorded Date Recorded By Document 06/02/24 15:01 DS [id number] 06/02/24 15:02 DS Document 06/06/24 10:16 DL [id number] 06/06/24 10:25 DL Document 06/09/24 14:29 BMF [id number] 06/09/24 14:29 BMF Document 06/13/24 10:46 BMF [id number] 06/13/24 10:50 BMF Document 06/16/24 15:00 KW [id number] 06/16/24 15:01 KW Document 06/20/24 15:23 DS [id number] 06/20/24 15:45 DS Document 06/23/24 14:04 GM [id number] 06/23/24 14:04 GM 06/02/24 06/06/24 06/09/24 15:01 10:16 14:29 Wound Care Center Nurse 3 BLE -Lotion applied to leg before compression wrap -Multi-Layered Wrap Application Multi-Layer Multi-Layer Multi-Layer Comp - Bilat ($ Comp - Bilat ($ Comp - Bilat ($ ) ) ) -Other Treatment Response Procedure Procedure Tolerated Well Tolerated Well Vital Signs Temperature (97.8 F-99.1 F) 97.2 F L Temperature Source Temporal Pulse Rate (60-100) 81 Pulse Location Monitor Respiratory Rate (12-18) 18 Respiratory rate source Observation Oxygen Delivery Method Blood Pressure (90/60-120/80) 121/74 H Blood Pressure Mean (mm Hg) 89 Source Monitor Position Blood Pressure Location Pain Scale: 0-10 Numeric Is Patient Pain Free? Yes Yes Yes WC - Visit Discharge Discharge Condition Stable Stable Stable Ambulatory Status Ambulatory Ambulatory Ambulatory Transportation Private Auto Private Auto Private Auto Accompanied by family dad Medication Reconcilliation completed & provided to patient/care provider Clinical Summary of Care Provided Yes Other 06/13/24 06/16/24 06/20/24 10:46 15:00 15:23 Wound Care Center Nurse 3 BLE -Lotion applied to leg before compression wrap -Multi-Layered Wrap Application Multi-Layer Multi-Layer Multi-Layer Comp - Bilat ($ Comp - Bilat ($ Comp - Bilat ($ ) ) ) -Other LOTION FIRST Treatment Response Procedure Tolerated Well Vital Signs Temperature (97.8 F-99.1 F) 97.5 F L Temperature Source Temporal Pulse Rate (60-100) 78 Pulse Location Monitor Respiratory Rate (12-18) 16 Respiratory rate source Observation Oxygen Delivery Method Room Air Blood Pressure (90/60-120/80) 121/65 H Blood Pressure Mean (mm Hg) 83 Source Monitor Position Sitting Blood Pressure Location Right Arm Pain Scale: 0-10 Numeric Is Patient Pain Free? Yes Yes Yes WC - Visit Discharge Discharge Condition Stable Stable Stable Ambulatory Status Ambulatory Ambulatory Ambulatory Transportation TRANSPORT Private Auto Private Auto Accompanied by Medication Reconcilliation completed & No provided to patient/care provider Clinical Summary of Care Provided Yes Other [facility] 06/23/24 14:04 Wound Care Center Nurse 3 BLE -Lotion applied to leg before No compression wrap -Multi-Layered Wrap Application Multi-Layer Comp - Bilat ($ ) -Other Treatment Response Vital Signs Temperature (97.8 F-99.1 F) Temperature Source Pulse Rate (60-100) Pulse Location Respiratory Rate (12-18) Respiratory rate source Oxygen Delivery Method Blood Pressure (90/60-120/80) Blood Pressure Mean (mm Hg) Source Position Blood Pressure Location Pain Scale: 0-10 Numeric Is Patient Pain Free? Yes WC - Visit Discharge Discharge Condition Stable Ambulatory Status Ambulatory Transportation Private Auto Accompanied by Medication Reconcilliation completed & provided to patient/care provider Clinical Summary of Care Provided Other Assessment/Plan Assessment/Plan (1) Lymphedema: CODE(S): I89.0 - Lymphedema, not elsewhere classified PLAN: Plan His lower leg measurements continue to improve, edema continues to reduce with wraps. He is not yet able to apply his previous measured zippered compression stockings. Will continue another week of bilateral 3M wraps. He is instructed to keep these clean and dry at all times. He is also advised to elevate his legs at all times of rest, avoid idle prolonged sitting/standing, and participate in regular exercise. 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 Could consider GSV ablation though he does certainly have lymphedema as well so difficult to predict how much benefit would be gained from ablation with respect to edema (there would be more clear benefit if he were to develop a wound in GSV distribution). He will return in 1 week, sooner as needed.
[2024-06-27 15:13] VITALS: BP 127/70; PULSE 81; RESP 16; TEMP 36.4; BMI 29.7
== END 2024-06-28 23:59 | disposition home or self-care (01) ==
LOC: WC 15:00
PROVIDERS: PCP Internal Medicine; Referring Provider Physician Assistant; Visit Provider Physician Assistant
DX: I89.0 Lymphedema, not elsewhere classified (principal); R60.0 Localized edema; I10 Essential (primary) hypertension; Z79.899 Other long term (current) drug therapy
CPT/HCPCS: 29581; 99213; G0463

== ENCOUNTER 2024-07-21 14:15 | Outpatient (RCR) | payer MEDICARE, MEDICAID, SELFPAY ==
[2024-06-29 00:42] VITALS: BP 130/65; PULSE 78; RESP 18; TEMP 35.8; BMI 29.7
[2024-06-30 13:54] VITALS: BP 126/67; PULSE 74; RESP 18; TEMP 35.9; BMI 29.7
--- NOTE | 2024-06-30 16:30 | PN.PCM_ITS ---
History of Present Illness Date of Service: 06/30/24 Chief Complaint: Bilateral lower extremity edema History of Wound: KENTON RYAN, is a 58 M who presents today for evaluation of significant lower extremity edema. He is accompanied to his appointment today by his sister Marika who helps with his care, though the patient does live independently. He is known to me from the vascular surgery office where I have seen him for his edema as well and we have venous workup in progress. He has been dealing with significant lower extremity edema for several years, has had a diagnosis of lymphedema for at least the last 3 years. He does have lymphedema pumps at home, and he uses them at least once daily and has for the last 3 years or so. He does typically wear compression stockings though has not been able to get them on lately due to increased edema. His stockings at home have zippers, these are the only type he is able to get on himself. It sounds like he has tried CircAid's in the past and he has limited left upper extremity mobility which makes these difficult to put on. He does spend much of his day sitting in a recliner, elevates his legs is much as he can. He does sleep in the bed. At present, no wounds or weeping areas; however, he does have intermittent episodes of fluid-filled blisters with rupture and lead to wounds along with weeping. He does have skin thickening, skin flaking/dry skin, and some chronic red discoloration. He has not had any prior venous interventions. He does not have any history of VTE. He has seen lymphedema clinic in the past when he was first diagnosed and saw some benefit from this. He also used to follow with physical therapy which helped increase his daily exercise. As it is, his swelling does make it very difficult for him to ambulate. 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 Subjective Subjective He had some further improvement in his RLE edema with 3M wraps this week; L calf size is increased, L ankle size is decreased. He is still unable to apply his current compression stockings. Recall that he does have lymphedema pumps at home already and he reports he is using these at least once daily. Objective Data Objective Data Vital Signs: Vital Signs Temp Pulse Resp BP O2 Del Method 96.6 F L 74 18 126/67 H Room Air 06/30/24 13:54 06/30/24 13:54 06/30/24 13:54 06/30/24 13:54 06/30/24 13:54 Oxygen Delivery Method Room Air Weight: 147 lb 1.272 oz Body Mass Index (BMI) 29.7 Charges/Coding Visit Charges Office Visits / Consults: 18030 OV L3 Est 20min Physical Exam Const alert, oriented x3 and no apparent distress General Appearance: cooperative and comfortable HEENT normocephalic, hearing grossly normal bilaterally, external ears normal and external nose normal Nose: external nose normal Eyes General Eye: normal appearance of both eyes Neck General: normal visual inspection and trachea midline Resp normal respiratory effort, normal air movement, no retractions and no use of accessory muscles Effort and Inspection: able to speak in complete sentences Cardio regular rate and regular rhythm Extremity Extremity Narrative: Lower extremity edema improving with circumference measurements as per clinical panel. Skin Skin Narrative: lipodermatosclerosis, skin flaking. No weeping, wounds. Psych mental status grossly normal Appearance: grossly normal Attitude: calm and engaged Activity / Motor Behavior: appropriate eye contact Speech: normal speech Debridement Note Debridement Note No debridement was completed: No debridement was completed today Post-Debridement Measurements and Additional Note: Post-Debridement Measurements/Treatment - Nurse 1 - General Ulcer Assessment Start: 06/30/24 13:54 Freq: Status: Active Protocol: VICENTE Activity Type Activity Date Activity User E-sign Co-sign Detail Recorded Client Recorded Date Recorded By Document 06/30/24 13:54 KW [id number] 06/30/24 14:03 KW 06/30/24 13:54 - Today's Visit Information Type of service Follow-up Visit (Physician/[employer] ) Arrival Mode Ambulatory Accompanied by caregiver Patient Identification Verified (Name & Yes ) Height and Weight Body Mass Index (BMI) 29.7 BMI Classification Overweight Vital Signs Temperature (97.8 F-99.1 F) 96.6 F L Temperature Source Temporal Pulse Rate (60-100) 74 Pulse Location Monitor Respiratory Rate (12-18) 18 Respiratory rate source Observation Oxygen Delivery Method Room Air Blood Pressure (90/60-120/80) 126/67 H Blood Pressure Mean (mm Hg) 86 Source Monitor Position Semi-Fowlers Blood Pressure Location Left Arm History Since Last Visit- (Skip if this is Patient's initial visit) Have you changed medications since your No last visit? Any new allergies or adverse reactions No Had a fall/change in ADL's that may No increase risk of falls Signs or symptoms of abuse and/or No neglect since last visit Have you been in the hospital since your No last visit? Has dressing in place as prescribed Yes Has compression in place as prescribed Yes Has offloadiing in place as prescribed N/A Experienced any changes in pain level or No management Left Footwear Regular Shoe Right Footwear Regular Shoe Pain Scale: 0-10 Numeric Is Patient Pain Free? Yes - Nurse 1 - General Ulcer Measurement Start: 06/30/24 13:54 Freq: Status: Active Protocol: Activity Type Activity Date Activity User E-sign Co-sign Detail Recorded Client Recorded Date Recorded By Document 06/30/24 13:54 [id number] 06/30/24 14:03 06/30/24 13:54 Wound Center Nurse 1 Right Calf (cm) 32.6 Right Ankle (cm) 23 Point of Measurement (cm from the distal 34.5 point) Point of measurement (cm from the medial 25.5 instep) - Nurse 2 - General Ulcer CM Notes Start: 06/30/24 13:54 Freq: Status: Active Protocol: Activity Type Activity Date Activity User E-sign Co-sign Detail Recorded Client Recorded Date Recorded By Document 06/30/24 14:15 [id number] 06/30/24 14:15 06/30/24 14:15 Pain Scale: 0-10 Numeric Is Patient Pain Free? Yes - Nurse 3 - General Ulcer D/C NN Start: 06/30/24 13:54 Freq: Status: Active Protocol: Activity Type Activity Date Activity User E-sign Co-sign Detail Recorded Client Recorded Date Recorded By Document 06/30/24 14:28 [id number] 06/30/24 14:28 06/30/24 14:28 Wound Care Center Nurse 3 BLE -Multi-Layered Wrap Application Multi-Layer Comp - Bilat ($ ) Pain Scale: 0-10 Numeric Is Patient Pain Free? Yes - Visit Discharge Discharge Condition Stable Ambulatory Status Ambulatory Transportation Private Auto Medication Reconcilliation completed & No provided to patient/care provider Clinical Summary of Care Provided Yes Assessment/Plan Assessment/Plan (1) Lymphedema: CODE(S): I89.0 - Lymphedema, not elsewhere classified PLAN: Plan His RLE has continued to improve, his LLE edema may be reaching a plateau. Will continue another week of bilateral 3M wraps. He is instructed to keep these clean and dry at all times. If we do not see further improvement in the LLE edema then I suggest we instead try to measure him for new compression stockings which will likely have to be ordered online as the typical places we work with really don't offer the zippered style anymore. I do think he would benefit more from something like Circaid or ExtremitEase velcro compression wraps; however, he still lives indep endently and with his LUE limited mobility he is adamant he would not be able to appy these. I emphasized with him again today the importance of elevating his legs at or above the level of his heart at all times of rest. I advise that every hour he walk for at least 5 minutes. I advise that he use his lymphedema pumps at least twice daily. We discussed that the better he adheres to these recommendations, the faster his swelling should improve and therefore the faster he can return to his normal stockings and not have to have the wraps applied. 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 Could consider GSV ablation though he does certainly have lymphedema as well so difficult to predict how much benefit would be gained from ablation with respect to edema (there would be more clear benefit if he were to develop a wound in GSV distribution). He will return in 1 week, sooner as needed.
--- NOTE | 2024-07-04 12:03 | WC ---
PHOTO 06/30/24 BILATERAL LYMPHEDEMA
[2024-07-04 14:30] VITALS: BMI 29.7
[2024-07-07 13:41] VITALS: BP 131/67; PULSE 74; RESP 16; TEMP 35.9; BMI 29.7
--- NOTE | 2024-07-07 15:04 | PCM.WC.PN ---
History of Present Illness Date of Service: 07/07/24 Chief Complaint: Bilateral lower extremity edema History of Wound: KENTON RYAN, is a 58 M who presents today for evaluation of significant lower extremity edema. He is accompanied to his appointment today by his sister Marika who helps with his care, though the patient does live independently. He is known to me from the vascular surgery office where I have seen him for his edema as well and we have venous workup in progress. He has been dealing with significant lower extremity edema for several years, has had a diagnosis of lymphedema for at least the last 3 years. He does have lymphedema pumps at home, and he uses them at least once daily and has for the last 3 years or so. He does typically wear compression stockings though has not been able to get them on lately due to increased edema. His stockings at home have zippers, these are the only type he is able to get on himself. It sounds like he has tried CircAid's in the past and he has limited left upper extremity mobility which makes these difficult to put on. He does spend much of his day sitting in a recliner, elevates his legs is much as he can. He does sleep in the bed. At present, no wounds or weeping areas; however, he does have intermittent episodes of fluid-filled blisters with rupture and lead to wounds along with weeping. He does have skin thickening, skin flaking/dry skin, and some chronic red discoloration. He has not had any prior venous interventions. He does not have any history of VTE. He has seen lymphedema clinic in the past when he was first diagnosed and saw some benefit from this. He also used to follow with physical therapy which helped increase his daily exercise. As it is, his swelling does make it very difficult for him to ambulate. 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 Subjective Subjective Favian is doing well this week. Tolerated the wraps well as usual. His lower extremity edema has seemed to plateau, not much further improvement with wraps; however, he still cannot easily apply his current zippered compression. Recall that he is not able to apply non-zippered compression or velcro garments such as Circaids on his own. He does need to be able to apply his own compression as he still lives independently. No wounds. No new concerns. Objective Data Objective Data Vital Signs: Vital Signs Temp Pulse Resp BP O2 Del Method 96.7 F L 74 16 131/67 H Room Air 07/07/24 13:41 07/07/24 13:41 07/07/24 13:41 07/07/24 13:41 07/07/24 13:41 Oxygen Delivery Method Room Air Weight: 147 lb 1.272 oz Body Mass Index (BMI) 29.7 Charges/Coding Visit Charges Office Visits / Consults: 16988 OV L3 Est 20min Physical Exam Const alert, oriented x3 and no apparent distress General Appearance: cooperative and comfortable HEENT normocephalic, hearing grossly normal bilaterally, external ears normal and external nose normal Nose: external nose normal Eyes General Eye: normal appearance of both eyes Neck General: normal visual inspection and trachea midline Resp normal respiratory effort, normal air movement, no retractions and no use of accessory muscles Effort and Inspection: able to speak in complete sentences Cardio regular rate and regular rhythm Extremity Extremity Narrative: Lower extremity edema improving with circumference measurements as per clinical panel. Skin Skin Narrative: lipodermatosclerosis, skin flaking. No weeping, wounds. Psych mental status grossly normal Appearance: grossly normal Attitude: calm and engaged Activity / Motor Behavior: appropriate eye contact Speech: normal speech Debridement Note Debridement Note No debridement was completed: No debridement was completed today Post-Debridement Measurements and Additional Note: Post-Debridement Measurements/Treatment - Nurse 1 - General Ulcer Assessment Start: 06/30/24 13:54 Freq: Status: Active Protocol: SHAYE.GRETEL Activity Type Activity Date Activity User E-sign Co-sign Detail Recorded Client Recorded Date Recorded By Document 06/30/24 13:54 KW [id number] 06/30/24 14:03 KW Document 07/04/24 14:30 ML [id number] 07/04/24 14:31 ML Document 07/07/24 13:41 DL [id number] 07/07/24 13:45 DL 06/30/24 07/04/24 07/07/24 13:54 14:30 13:41 - Today's Visit Information Type of service Follow-up Visit Nurse-only Follow-up Visit (Physician/CANTILEVER CRANE OPERATOR Visit (Physician/CANTILEVER CRANE OPERATOR ) ) Arrival Mode Ambulatory Ambulatory Ambulatory Transfer Assistance None None Accompanied by caregiver Patient Identification Verified (Name & Yes Yes Yes ) Patient Requires Transmission-Based No No Precautions Height and Weight Body Mass Index (BMI) 29.7 29.7 29.7 BMI Classification Overweight Overweight Overweight Vital Signs Temperature (97.8 F-99.1 F) 96.6 F L 96.7 F L Temperature Source Temporal Temporal Pulse Rate (60-100) 74 74 Pulse Location Monitor Monitor Respiratory Rate (12-18) 18 16 Respiratory rate source Observation Observation Oxygen Delivery Method Room Air Room Air Blood Pressure (90/60-120/80) 126/67 H 131/67 H Blood Pressure Mean (mm Hg) 86 88 Source Monitor Monitor Position Semi-Fowlers Sitting Blood Pressure Location Left Arm Left Arm History Since Last Visit- (Skip if this is Patient's initial visit) Have you changed medications since your No No No last visit? Any new allergies or adverse reactions No No No Had a fall/change in ADL's that may No No increase risk of falls Signs or symptoms of abuse and/or No No No neglect since last visit Have you been in the hospital since your No No last visit? Has dressing in place as prescribed Yes Yes Has compression in place as prescribed Yes Yes No Has offloadiing in place as prescribed N/A N/A N/A Experienced any changes in pain level or No No No management Left Footwear Regular Shoe Regular Shoe Right Footwear Regular Shoe Regular Shoe Other Footwear removed wraps at home Pain Scale: 0-10 Numeric Is Patient Pain Free? Yes Yes Yes WC - Nurse 1 - General Ulcer Measurement Start: 06/30/24 13:54 Freq: Status: Active Protocol: Activity Type Activity Date Activity User E-sign Co-sign Detail Recorded Client Recorded Date Recorded By Document 06/30/24 13:54 KW [id number] 06/30/24 14:03 KW Document 07/04/24 14:30 ML [id number] 07/04/24 14:31 ML Document 07/07/24 13:41 DL [id number] 07/07/24 13:45 DL 06/30/24 07/04/24 07/07/24 13:54 14:30 13:41 Wound Center Nurse 1 Lower Limb Edema Present Yes Right Calf (cm) 32.6 32 34.5 Right Ankle (cm) 23 25 25 Point of Measurement (cm from the distal 34.5 point) Left Calf (cm) 32 34.2 Point of measurement (cm from the medial 25.5 instep) Left Ankle (cm) 26 27.6 - Nurse 2 - General Ulcer CM Notes Start: 06/30/24 13:54 Freq: Status: Active Protocol: Activity Type Activity Date Activity User E-sign Co-sign Detail Recorded Client Recorded Date Recorded By Document 06/30/24 14:15 GM [id number] 06/30/24 14:15 GM Document 07/07/24 13:53 GM [id number] 07/07/24 13:54 GM 06/30/24 07/07/24 14:15 13:53 Pain Scale: 0-10 Numeric Is Patient Pain Free? Yes Yes - Nurse 3 - General Ulcer D/C NN Start: 06/30/24 13:54 Freq: Status: Active Protocol: Activity Type Activity Date Activity User E-sign Co-sign Detail Recorded Client Recorded Date Recorded By Document 06/30/24 14:28 KW [id number] 06/30/24 14:28 KW Document 07/04/24 14:30 ML [id number] 07/04/24 14:31 ML Document 07/07/24 14:00 KW [id number] 07/07/24 14:01 KW 06/30/24 07/04/24 07/07/24 14:28 14:30 14:00 Wound Care Center Nurse 3 BLE -Lotion applied to leg before Yes compression wrap -Multi-Layered Wrap Application Multi-Layer Multi-Layer Multi-Layer Comp - Bilat ($ Comp - Bilat ($ Comp - Bilat ($ ) ) ) Pain Scale: 0-10 Numeric Is Patient Pain Free? Yes Yes Yes - Visit Discharge Discharge Condition Stable Stable Ambulatory Status Ambulatory Ambulatory Transportation Private Auto Medication Reconcilliation completed & No No provided to patient/care provider Clinical Summary of Care Provided Yes Yes Assessment/Plan Assessment/Plan (1) Lymphedema: CODE(S): I89.0 - Lymphedema, not elsewhere classified PLAN: Plan At this time, we have achieved significant reduction in his lower extremity edema with compression wraps but this progress has been plateaued now for the last 2-3 weeks. I do believe he is at or very near his baseline. As such, I think it is time to transition him back to his daily compression stockings. Given his current stockings are still a bit too snug for him to easily apply, I think he will need to obtain new ones. We have measured him today and I have provided him with a prescription to take to [facility] where they can hopefully order the zippered stockings. I ask that he do this over this next week. Will apply 3M wraps again this week until he has new stockings. I continue to recommend leg elevation at all times of rest and regular walking/exercise throughout the day. He should also be using his lymphedema pumps for 1 hour 2-3 times daily. 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 Could consider GSV ablation though he does certainly have lymphedema as well so difficult to predict how much benefit would be gained from ablation with respect to edema (there would be more clear benefit if he were to develop a wound in GSV distribution). He will return in 1 week, sooner as needed.
[2024-07-11 11:16] VITALS: BP 108/52; PULSE 80; RESP 18; TEMP 35.9; BMI 29.7
[2024-07-21 14:51] VITALS: BP 122/55; PULSE 75; RESP 16; TEMP 36.1; BMI 29.7
--- NOTE | 2024-07-21 17:57 | PCM.WC.PN ---
History of Present Illness Date of Service: 07/21/24 Chief Complaint: Bilateral lower extremity edema History of Wound: KENTON RYAN, is a 58 M who presents today for evaluation of significant lower extremity edema. He is accompanied to his appointment today by his sister Marika who helps with his care, though the patient does live independently. He is known to me from the vascular surgery office where I have seen him for his edema as well and we have venous workup in progress. He has been dealing with significant lower extremity edema for several years, has had a diagnosis of lymphedema for at least the last 3 years. He does have lymphedema pumps at home, and he uses them at least once daily and has for the last 3 years or so. He does typically wear compression stockings though has not been able to get them on lately due to increased edema. His stockings at home have zippers, these are the only type he is able to get on himself. It sounds like he has tried CircAid's in the past and he has limited left upper extremity mobility which makes these difficult to put on. He does spend much of his day sitting in a recliner, elevates his legs is much as he can. He does sleep in the bed. At present, no wounds or weeping areas; however, he does have intermittent episodes of fluid-filled blisters which rupture and lead to wounds along with weeping. He does have skin thickening, skin flaking/dry skin, and some chronic red discoloration. He has not had any prior venous interventions. He does not have any history of VTE. He has seen lymphedema clinic in the past when he was first diagnosed and saw some benefit from this. He also used to follow with physical therapy which helped increase his daily exercise. As it is, his swelling does make it very difficult for him to ambulate. 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 Subjective Subjective Favian has done well again this past week with 3M wraps. He did receive his new zippered compression stockings based on his more up-to-date measurements; however, he forgot to bring them with him today. He had a different family were present with him this week, but spoke to his sister Marika over the phone who manages most of his care during the appointment when we discussed our plan. Objective Data Objective Data Vital Signs: Vital Signs Temp Pulse Resp BP O2 Del Method 96.9 F L 75 16 122/55 H Room Air 07/21/24 14:51 07/21/24 14:51 07/21/24 14:51 07/21/24 14:51 07/21/24 14:51 Oxygen Delivery Method Room Air Weight: 147 lb 1.272 oz Body Mass Index (BMI) 29.7 Charges/Coding Visit Charges Office Visits / Consults: 53947 OV L3 Est 20min Physical Exam Const alert, oriented x3 and no apparent distress General Appearance: cooperative and comfortable HEENT normocephalic, hearing grossly normal bilaterally, external ears normal and external nose normal Nose: external nose normal Eyes General Eye: normal appearance of both eyes Neck General: normal visual inspection and trachea midline Resp normal respiratory effort, normal air movement, no retractions and no use of accessory muscles Effort and Inspection: able to speak in complete sentences Cardio regular rate and regular rhythm Extremity Extremity Narrative: Lower extremity edema improving with circumference measurements as per clinical panel. Skin Skin Narrative: lipodermatosclerosis, skin flaking. No weeping, wounds. Psych mental status grossly normal Appearance: grossly normal Attitude: calm and engaged Activity / Motor Behavior: appropriate eye contact Speech: normal speech Debridement Note Debridement Note No debridement was completed: No debridement was completed today Post-Debridement Measurements and Additional Note: Post-Debridement Measurements/Treatment - Nurse 1 - General Ulcer Assessment Start: 06/30/24 13:54 Freq: Status: Active Protocol: SHAYE.GRETEL Activity Type Activity Date Activity User E-sign Co-sign Detail Recorded Client Recorded Date Recorded By Document 06/30/24 13:54 KW [id number] 06/30/24 14:03 KW Document 07/04/24 14:30 ML [id number] 07/04/24 14:31 ML Document 07/07/24 13:41 DL [id number] 07/07/24 13:45 DL Document 07/11/24 11:16 KW [id number] 07/11/24 11:17 KW Document 07/21/24 14:51 KW [id number] 07/21/24 14:57 KW 06/30/24 07/04/24 07/07/24 13:54 14:30 13:41 - Today's Visit Information Type of service Follow-up Visit Nurse-only Follow-up Visit (Physician/PHOTO FINISH PHOTOGRAPHER Visit (Physician/PHOTO FINISH PHOTOGRAPHER ) ) Arrival Mode Ambulatory Ambulatory Ambulatory Transfer Assistance None None Accompanied by caregiver Patient Identification Verified (Name & Yes Yes Yes ) Patient Requires Transmission-Based No No Precautions Height and Weight Body Mass Index (BMI) 29.7 29.7 29.7 BMI Classification Overweight Overweight Overweight Vital Signs Temperature (97.8 F-99.1 F) 96.6 F L 96.7 F L Temperature Source Temporal Temporal Pulse Rate (60-100) 74 74 Pulse Location Monitor Monitor Respiratory Rate (12-18) 18 16 Respiratory rate source Observation Observation Oxygen Delivery Method Room Air Room Air Blood Pressure (90/60-120/80) 126/67 H 131/67 H Blood Pressure Mean (mm Hg) 86 88 Source Monitor Monitor Position Semi-Fowlers Sitting Blood Pressure Location Left Arm Left Arm History Since Last Visit- (Skip if this is Patient's initial visit) Have you changed medications since your No No No last visit? Any new allergies or adverse reactions No No No Had a fall/change in ADL's that may No No increase risk of falls Signs or symptoms of abuse and/or No No No neglect since last visit Have you been in the hospital since your No No last visit? Has dressing in place as prescribed Yes Yes Has compression in place as prescribed Yes Yes No Has offloadiing in place as prescribed N/A N/A N/A Experienced any changes in pain level or No No No management Left Footwear Regular Shoe Regular Shoe Right Footwear Regular Shoe Regular Shoe Other Footwear removed wraps at home Pain Scale: 0-10 Numeric Is Patient Pain Free? Yes Yes Yes 07/11/24 07/21/24 11:16 14:51 WC - Today's Visit Information Type of service Nurse-only Follow-up Visit Visit (Physician/PHOTO FINISH PHOTOGRAPHER ) Arrival Mode Ambulatory Ambulatory Transfer Assistance Accompanied by caregiver SISTER Patient Identification Verified (Name & Yes Yes ) Patient Requires Transmission-Based Precautions Height and Weight Body Mass Index (BMI) 29.7 29.7 BMI Classification Overweight Overweight Vital Signs Temperature (97.8 F-99.1 F) 96.7 F L 96.9 F L Temperature Source Temporal Temporal Pulse Rate (60-100) 80 75 Pulse Location Monitor Monitor Respiratory Rate (12-18) 18 16 Respiratory rate source Observation Observation Oxygen Delivery Method Room Air Room Air Blood Pressure (90/60-120/80) 108/52 L 122/55 H Blood Pressure Mean (mm Hg) 70 77 Source Monitor Monitor Position Semi-Fowlers Semi-Fowlers Blood Pressure Location Left Arm Left Arm History Since Last Visit- (Skip if this is Patient's initial visit) Have you changed medications since your No No last visit? Any new allergies or adverse reactions No No Had a fall/change in ADL's that may No No increase risk of falls Signs or symptoms of abuse and/or No No neglect since last visit Have you been in the hospital since your No No last visit? Has dressing in place as prescribed Yes Yes Has compression in place as prescribed Yes Yes Has offloadiing in place as prescribed N/A N/A Experienced any changes in pain level or No No management Left Footwear Regular Shoe Regular Shoe Right Footwear Regular Shoe Regular Shoe Other Footwear Pain Scale: 0-10 Numeric Is Patient Pain Free? Yes No WC - Nurse 1 - General Ulcer Measurement Start: 06/30/24 13:54 Freq: Status: Active Protocol: Activity Type Activity Date Activity User E-sign Co-sign Detail Recorded Client Recorded Date Recorded By Document 06/30/24 13:54 KW [id number] 06/30/24 14:03 KW Document 07/04/24 14:30 ML [id number] 07/04/24 14:31 ML Document 07/07/24 13:41 DL [id number] 07/07/24 13:45 DL Document 07/11/24 11:17 KW [id number] 07/11/24 11:18 KW Document 07/21/24 14:51 KW [id number] 07/21/24 14:57 KW 06/30/24 07/04/24 07/07/24 13:54 14:30 13:41 Wound Center Nurse 1 Lower Limb Edema Present Yes Right Calf (cm) 32.6 32 34.5 Right Ankle (cm) 23 25 25 Point of Measurement (cm from the distal 34.5 point) Left Calf (cm) 32 34.2 Point of measurement (cm from the medial 25.5 instep) Left Ankle (cm) 26 27.6 07/11/24 07/21/24 11:17 14:51 Wound Center Nurse 1 Lower Limb Edema Present Right Calf (cm) 32.8 32 Right Ankle (cm) 24.5 25 Point of Measurement (cm from the distal point) Left Calf (cm) 33.3 37.5 Point of measurement (cm from the medial instep) Left Ankle (cm) 27.6 27 WC - Nurse 2 - General Ulcer CM Notes Start: 06/30/24 13:54 Freq: Status: Active Protocol: Activity Type Activity Date Activity User E-sign Co-sign Detail Recorded Client Recorded Date Recorded By Document 06/30/24 14:15 GM [id number] 06/30/24 14:15 GM Document 07/07/24 13:53 GM [id number] 07/07/24 13:54 GM Document 07/21/24 15:40 GM [id number] 07/21/24 15:46 GM 06/30/24 07/07/24 07/21/24 14:15 13:53 15:40 Pain Scale: 0-10 Numeric Is Patient Pain Free? Yes Yes Yes - Nurse 3 - General Ulcer D/C NN Start: 06/30/24 13:54 Freq: Status: Active Protocol: Activity Type Activity Date Activity User E-sign Co-sign Detail Recorded Client Recorded Date Recorded By Document 06/30/24 14:28 KW [id number] 06/30/24 14:28 KW Document 07/04/24 14:30 ML [id number] 07/04/24 14:31 ML Document 07/07/24 14:00 KW [id number] 07/07/24 14:01 KW Document 07/11/24 11:16 KW [id number] 07/11/24 11:17 KW Document 07/21/24 16:03 BMF [id number] 07/21/24 16:04 BMF 06/30/24 07/04/24 07/07/24 14:28 14:30 14:00 Wound Care Center Nurse 3 Right -Tubular Bandage -Size of Tubigrip Used -Size C ($) -Other Left -Tubular Bandage -Size of Tubigrip Used -Size D ($) -Other BLE -Lotion applied to leg before Yes compression wrap -Multi-Layered Wrap Application Multi-Layer Multi-Layer Multi-Layer Comp - Bilat ($ Comp - Bilat ($ Comp - Bilat ($ ) ) ) Treatment Response Vital Signs Temperature (97.8 F-99.1 F) Temperature Source Pulse Rate (60-100) Pulse Location Respiratory Rate (12-18) Respiratory rate source Oxygen Delivery Method Blood Pressure (90/60-120/80) Blood Pressure Mean (mm Hg) Source Position Blood Pressure Location Pain Scale: 0-10 Numeric Is Patient Pain Free? Yes Yes Yes WC - Visit Discharge Discharge Condition Stable Stable Ambulatory Status Ambulatory Ambulatory Transportation Private Auto Accompanied by Medication Reconcilliation completed & No No provided to patient/care provider Clinical Summary of Care Provided Yes Yes 07/11/24 07/21/24 11:16 16:03 Wound Care Center Nurse 3 Right -Tubular Bandage Single Layer -Size of Tubigrip Used Size C -Size C ($) 2 -Other SENT EXTRA Left -Tubular Bandage Single Layer -Size of Tubigrip Used Size D -Size D ($) 2 -Other SENT EXTRA BLE -Lotion applied to leg before Yes compression wrap -Multi-Layered Wrap Application Multi-Layer Comp - Bilat ($ ) Treatment Response Procedure Tolerated Well Vital Signs Temperature (97.8 F-99.1 F) 96.7 F L Temperature Source Temporal Pulse Rate (60-100) 80 Pulse Location Monitor Respiratory Rate (12-18) 18 Respiratory rate source Observation Oxygen Delivery Method Room Air Blood Pressure (90/60-120/80) 108/52 L Blood Pressure Mean (mm Hg) 70 Source Monitor Position Semi-Fowlers Blood Pressure Location Left Arm Pain Scale: 0-10 Numeric Is Patient Pain Free? Yes Yes WC - Visit Discharge Discharge Condition Stable Stable Ambulatory Status Ambulatory Ambulatory Transportation Private Auto Private Auto Accompanied by SISTER Medication Reconcilliation completed & No provided to patient/care provider Clinical Summary of Care Provided Yes Assessment/Plan Assessment/Plan (1) Lymphedema: CODE(S): I89.0 - Lymphedema, not elsewhere classified PLAN: Plan We have made significant progress in his edema with 3M wraps, however his measurements have overall been fairly stable these last few visits so I think we have reached maximum benefit and are at his baseline swelling which is quite minimal in the right lower extremity and mild to moderate in the left secondary to his lymphedema. Spoke with him and confirmed he feels confident in his ability to apply his new zippered compression stockings by himself. After discussion, Favian and Marika were comfortable with the plan for him to be discharged today. We will apply Tubigrip's today for his trip home and he is instructed to apply the zippered compression stockings as soon as he gets home. He is instructed to apply these every day, put them on first thing in the morning and remove just before bed. I continue to recommend leg elevation at all times of rest and regular walking/exercise throughout the day. He should also be using his lymphedema pumps for 1 hour 2-3 times daily. Will plan for him to return as needed for acutely worsened edema. 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 Could consider GSV ablation though he does certainly have lymphedema as well so difficult to predict how much benefit would be gained from ablation with respect to edema (there would be more clear benefit if he were to develop a wound in GSV distribution). He is discharged from wound center today.
== END 2024-07-27 13:21 | disposition home or self-care (01) ==
LOC: WC 14:15
PROVIDERS: PCP Internal Medicine; Referring Provider Physician Assistant; Visit Provider Physician Assistant
DX: I89.0 Lymphedema, not elsewhere classified (principal); I10 Essential (primary) hypertension; Z79.899 Other long term (current) drug therapy
CPT/HCPCS: 29581; 99213; G0463

== ENCOUNTER 2024-10-06 13:01 | Outpatient (RCR) | payer MEDICARE, MEDICAID, SELFPAY ==
[2024-10-06 13:24] VITALS: BP 125/61; PULSE 74; RESP 18; TEMP 36.6
--- NOTE | 2024-10-06 15:27 | HP.PCM_ITS ---
History of Present Illness Date of Service: 10/06/24 Chief Complaint: Bilateral lower extremity edema History of Wound: KENTON RYAN, is a 58 M who presents today for evaluation of significant lower extremity edema. He is known to me from the vascular surgery office as well as prior visits here. Last time he was here, he was treated with a few months of compression wraps to get his edema controlled to the point he could apply his zippered compression stockings on his own. He has been wearing his zippered 20-30mmHg compression stockings daily. He report he has been using his lymphedema pumps twice daily. He states he has been elevating his legs at all times of rest. He generally eats pre-made meals with unclear sodium content; but otherwise, reports a fair diet focused on protein and vegetables and stays away from junk food. He denies any other associated symptoms with his edema such as chest pain, increased SOB with activity or lying down. Recall that he has tried CircAid's in the past and he has limited left upper extremity mobility which makes these difficult to put on. At present, no wounds or weeping areas; however, he does have intermittent episodes of fluid-filled blisters which rupture and lead to wounds along with weeping. He does have skin thickening, skin flaking/dry skin, and some chronic red discoloration. He did also see OT at [facility] for his lymphedema earlier this week. They applied short-stretch wraps and planned for twice weekly visits for these and other interventions with them. He tolerated the short-stretch wraps so far. 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 [facility] Medical History Developmental disability Cervical spine disease Atrial septal defect Leg edema Leg swelling Barretts esophagus Congenital heart disease Essential hypertension Home Medications ?Medication ?Instructions ?Recorded ?Last Taken ?Type metoprolol tartrate 50 1 tab PO DAILY 10/04/19 Unkn own History mg-hydrochlorothiazide 25 mg tablet montelukast 10 mg tablet 10 mg PO QHS 10/04/19 Unknow n History multivitamin 1 tab PO DAILY 10/04/19 Unkn own History omeprazole 40 mg capsule,delayed 40 mg PO DAILY Unknown History release lactobacillus combination no.4 3 3,000 mmu cells PO DA VIJAY 09/19/21 Unknown History billion cell capsule (Probiotic) tamsulosin 0.4 mg capsule 0.4 mg PO QHS 02/11/23 Unkno wn History Held on 05/19/24. Instructions: Pt is ill fluticasone propionate 50 1 spray intranasal DAILY 12/20 Unknown History mcg/actuation nasal spray,suspension (Allergy Relief (fluticasone)) metamucil fiber bar PO DAILY 02/02/24 Unknown Hi story torsemide 20 mg tablet 20 mg PO DAILY #90 tabs 04/29 08/22 Unknown Rx potassium chloride 10 mEq 20 meq (2 x 10 mEq) PO BID # 360 06/30/24 Unknown Rx tablet,extended release tabs Allergy/AdvReac Type Severity Reaction Status Date / Time Penicillins AdvReac Severe SOB Verified 09/27/24 15:40 Family History Mother Hypertension Father Heart disease Sister CVA (cerebral vascular accident) Surgical History History of open heart surgery Hx of eye surgery Hx of neck surgery Fusion of spine, cervical region Social History Smoking Status: Never smoker alcohol intake: never substance use type: does not use Vital Signs Vital Signs Vital Signs: 10/06/24 13:24 Temperature 97.9 F Temperature Source Temporal Pulse Rate 74 Respiratory Rate 18 Blood Pressure 125/61 H Blood Pressure Mean 82 Blood Pressure Source Monitor Blood Pressure Position Semi-Fowlers Blood Pressure Location Left Arm Oxygen Delivery Method Room Air Physical Exam Narrative Const General: cooperative, comfortable and no acute distress Orientation: alert, awake and oriented x3 HENMT Head: normocephalic and atraumatic Ears: hearing grossly normal bilaterally and external ears normal Nose: external nose normal Eyes General: appearance normal, both eyes and all related structures EOM: EOM intact bilaterally Neck Neck: normal visual inspection and trachea midline Resp Effort & Inspection: normal respiratory effort, able to speak in complete sentences, no grunting, not labored, no respiratory distress and no retractions Auscultation: clear to auscultation bilaterally Cardio Rate: regular rate Rhythm: regular rhythm Skin General: no rashes or lesions noted and dry skin Trauma: no lacerations or abrasions Wounds: no wounds Neuro General: moves all extremities and no focal motor deficits Cranial Nerves: CN's II-XI intact bilaterally Speech: speech normal Extremities Lower Extremity Edema: +1: Right and +2: Left Additional Details: Unable to palpate bilateral pedal pulses due to swelling but multiphasic Doppler signals present bilaterally He has bilateral lipodermatosclerosis, chronic discoloration Psych Mental Status: mental status grossly normal Mood: congruent mood Affect: normal affect Speech and Movement: speech and movement normal Attitude: cooperative Debridement Note Debridement Note No debridement was completed: No debridement was completed today Post-Debridement Measurements and Additional Note: Post-Debridement Measurements/Treatment WC - Nurse 1 - General Ulcer Assessment Start: 10/06/24 13:24 Freq: Status: Active Protocol: VICENTE Activity Type Activity Date Activity User E-sign Co-sign Detail Recorded Client Recorded Date Recorded By Document 10/06/24 13:24 KW [id number] 10/06/24 13:34 KW 10/06/24 13:24 WC - Today's Visit Information Type of service Initial Visit Arrival Mode Ambulatory Accompanied by father Patient Identification Verified (Name & Yes ) Vital Signs Temperature (97.8 F-99.1 F) 97.9 F Temperature Source Temporal Pulse Rate (60-100) 74 Pulse Location Monitor Respiratory Rate (12-18) 18 Respiratory rate source Observation Oxygen Delivery Method Room Air Blood Pressure (90/60-120/80) 125/61 H Blood Pressure Mean (mm Hg) 82 Source Monitor Position Semi-Fowlers Blood Pressure Location Left Arm History Since Last Visit- (Skip if this is Patient's initial visit) Have you changed medications since your No last visit? Any new allergies or adverse reactions No Had a fall/change in ADL's that may No increase risk of falls Signs or symptoms of abuse and/or No neglect since last visit Have you been in the hospital since your No last visit? Has dressing in place as prescribed Yes Has compression in place as prescribed Yes Has offloadiing in place as prescribed N/A Experienced any changes in pain level or No management Left Footwear Regular Shoe Right Footwear Regular Shoe Pain Scale: 0-10 Numeric Is Patient Pain Free? Yes SHAYE - Nurse 1 - General Ulcer Measurement Start: 10/06/24 13:24 Freq: Status: Active Protocol: Activity Type Activity Date Activity User E-sign Co-sign Detail Recorded Client Recorded Date Recorded By Document 10/06/24 13:24 KW [id number] 10/06/24 13:34 KW 10/06/24 13:24 Wound Center Nurse 1 Left Calf (cm) 39.2 Left Ankle (cm) 25.5 WC - Nurse 2 - General Ulcer CM Notes Start: 10/06/24 13:24 Freq: Status: Active Protocol: Activity Type Activity Date Activity User E-sign Co-sign Detail Recorded Client Recorded Date Recorded By Document 10/06/24 13:50 GM [id number] 10/06/24 13:51 GM 10/06/24 13:50 Pain Scale: 0-10 Numeric Is Patient Pain Free? Yes WC - Nurse 3 - General Ulcer D/C NN Start: 10/06/24 13:24 Freq: Status: Active Protocol: Activity Type Activity Date Activity User E-sign Co-sign Detail Recorded Client Recorded Date Recorded By Document 10/06/24 14:13 DL [id number] 10/06/24 14:14 DL 10/06/24 14:13 Wound Care Center Nurse 3 LLE -Multi-Layered Wrap Application Multi-Layer Comp - Left ($) -Multi-Layer Compression Left (Qty 1 applied) Treatment Response Procedure Tolerated Well Pain Scale: 0-10 Numeric Is Patient Pain Free? Yes WC - Visit Discharge Discharge Condition Stable Ambulatory Status Ambulatory Transportation Private Auto Charges/Coding Visit Charges Office Visits / Consults: 85266 OV L3 Est 20min Assessment/Plan Assessment/Plan (1) Lymphedema: CODE(S): I89.0 - Lymphedema, not elsewhere classified PLAN: Plan Wraps placed by OT were removed today. Did apply 3M wraps to the LLE today which can remain in place until his next OT visit. I discussed with patient and his sister Marika by phone that I recommend he follow with OT twice weekly as recommended for now and see what progress is made. OT has recommended compression wraps then trying to get him into tighter compression stockings which I think is a good idea. I recommend that they try to obtain donning devices to see if this will allow him to independently apply tighter compression stockings without zippers. We discussed that lymphedema is a chronic condition and that it is important to have good, high-level compression garments to allow for best management; in addition it is important for him to be compliant with applying compression, utilizing lymphedema pumps, exercise, leg elevation, and skin care. We discussed that these efforts are crucial as compression wraps through the wound center are not a great long-term solution. He will continue to follow with OT for now and see what progress is made, can return here at the end of OT course if needed.
== END 2024-10-26 23:59 | disposition home or self-care (01) ==
LOC: WC 13:01
PROVIDERS: PCP Internal Medicine; Referring Provider Physician Assistant; Visit Provider Physician Assistant
DX: I89.0 Lymphedema, not elsewhere classified (principal); I10 Essential (primary) hypertension; Z79.899 Other long term (current) drug therapy
CPT/HCPCS: 29581; 99213; G0463

== ENCOUNTER → 2024-10-12 | Outpatient (CLI) | payer MEDICARE, MEDICAID, SELFPAY ==
[2024-10-12 17:31] LABS: Absolute Neutrophil Count 4.7 X10^3/uL (2.0-7.7); Basophil# 0.05 X10^3/uL; Basophil% 0.7 % (0-1); Eosinophil# 0.05 X10^3/uL; Eosinophils% 0.7 % (0-5); Hematocrit 44.3 % (40-54); Hemoglobin 15.5 g/dL (13.0-16.5); Lymphocyte % 23.3 % (19-41); Mean Corpuscular Hgb 29.2 pg (27.0-32.0); Mean Corpuscular Volume 83.4 fL (80-94); Mean Platelet Vol. 9.6 fl (6.2-12.0); Monocyte# 0.76 X10^3/uL; Monocyte% 10.4 % (0-10); NRBC Flagged by Analyzer 0 % (0-5); Neutrophil # 4.73 X10^3/uL (2.7-7.7); Neutrophil % 64.6 % (47-70); Platelet Count 378 K/mm3 (150-450); RBC Distribution Width CV 13.6 % (11.6-14.6); RBC Distribution Width SD 41.1 fl (35.1-43.9); Red Blood Count 5.31 M/mm3 (4.6-6.2); White Blood Count 7.3 K/mm3 (4.4-11.0)
[2024-10-12 18:04] LABS: Vitamin D,25 Hydroxy 46.8 ng/mL (30-100)
[2024-10-12 18:06] LABS: Anion Gap 13 (5-15); BUN 11 mg/dL (4-19); BUN/Creat Ratio 13.7 RATIO (10-20); Carbon Dioxide 26.4 mmol/L (21.0-32.0); Chloride 95 mmol/L (98-108); Creatinine, Serum 0.81 mg/dL (0.70-1.20); EST Glomerular Filtration Rate 101 (>60); Glucose 100 mg/dL (70-99); Potassium 3.4 mmol/L (3.3-5.1); Sodium Level 134 mmol/L (133-145)
== END | disposition home or self-care (01) ==
LOC: LAB 16:03
PROVIDERS: PCP Internal Medicine; Referring Provider Student in an Organized Health Care Education/Training Program; Visit Provider Student in an Organized Health Care Education/Training Program
DX: R53.83 Other fatigue (principal); I10 Essential (primary) hypertension; E55.9 Vitamin D deficiency, unspecified
CPT/HCPCS: 36415; 80048; 82306; 84443; 85025

== ENCOUNTER 2024-10-31 13:00 | Outpatient (RCR) | payer MEDICARE, MEDICAID, SELFPAY ==
--- NOTE | 2024-10-04 15:23 | HP.OTEVAL ---
Patient's Visit Information Visit Information Visit Information: KENTON RYAN is a 58 year old M, referred to Occupational Therapy by SIOBHAN Tillman, with a diagnosis of lymphedema. Date of Evaluation: 10/04/24 Occupational Therapist: Marcy Porter, BERNARD/Alison, CHT Subjective Subjective: This 58 year old male was seen in OT with his sister for dx of lymphedema. Pt was seen in the past and uses zipper compression socks- recently pt is unable to get left compression sock up all the way. sister noticed LE swelling has increased and she has concerns at this time for risk of wounds. Vascular center rec'd increase compression class with his compression socks ( but sister says they are too difficult for Gopi to get on by himself) They have tried the velcro closure compression devices but pt was unable to get the garment closed ( motor planning difficult) pt has home compression pump he will use 2-3x a day. pt sister states he has a wound care center consultant who comes 3x week from 04-01 to assist Gopi with tasks as needed. States this person could take him to the [facility] for waking around the track. ( Gopi is not receptive) Lymphedema (Circumferential Measure) Mid-foot: right 22cm left 24cm Ankle: right 26cm left 29cm Lower calf: right 29cm left 29cm Largest calf: right 33cm left 38cm Below knee: right 34cm left 36cm Lower Exremity Comments: other measurements from 2023 Mid-foot: right 21.5cm left 23.5cm Ankle: right 26cm left 29.5cm Lower calf: right 28cm left 31.5cm Largest calf: right 34cm left 39cm Below knee: right 34.5cm left 35cm Lower Limb Functional Index Lower Extremity Functional Score: 45 Goals Goal: Patient will demonstrate a 20% reduction in edema by discharge: Yes Goal: Patient will demonstrate adequate knowledge of self-bandaging by the end of the first week.: Yes Goal: Patient will demonstrate adequate knowledge of self-massage by the end of the second week.: Yes Goal: Patient will demonstrate adequate knowledge of skin care and precautions by the end of the first week.: Yes Goal: Patient will demonstrate adequate knowledge of therapeutic exercises by discharge.: Yes Goal: Patient will select an appropriate compression garment and demonstrate adequate knowledge of correct donning technique, care and wearing schedule by discharge.: Yes Goal: Patient will voice understanding of need to replace compression garment every four to six months by discharge.: Yes Rehabilitation General Assessment: pt demo with BLE lymphedema greater on left than right. Pt demo need for skilled OT services 2x week for 3-4 weeks to decrease limb size, review lymph stimulation exercise, and encourage pt to perform self manual lymph massage. ( sister states he does not do) Pt is struggling to get his compression sock on at this time- sister feels compression sock is about 4 months old- Therapist would like to use short stretch wraps to decrease limb size and fit pt for smaller compression sock ( sister states Gopi will not be able to get smaller compression socks on, too difficult). Both agree to wrap left LE with short stretch wraps and cont. with use of compression sock for right- Therapist ed. if wrap slides down he needs to remove and have sister re-wrap or wait to see wound center on . as we do not want to cause tourniquet affect with wraps sliding down. ( sister and gopi demo understanding) If Gopi can not tolerate short stretch wraps - will go with wound center wraps and fit pt for smaller compression socks or higher compression ( per sister Gopi can not manage compression socks with higher compression or smaller size) Might have to get the Velcro closure compression device and the wound care center consultant put on at night the 3 days a week he is there and Gopi removes in am and puts on his compression socks. Pt has agreed to attend 2 OT session per week for lymph stim ex and MLD . pt and sister demo understanding and agree to POC. Rehabilitation Potential: Good Anticipated Interventions Anticipated Interventions: Education re Life-long lymphedema Management, Education re Self-Bandaging Techniques, Education re Skin Care and Precautions, Education re Self Massage Techniques, Education re Correct Donning Tech,Care&Wearing Sched Comp Garments, Caregiver Training and Home Program Visit Plan Frequency: 2x /Week Duration: 3 Weeks TEXT: Thank you for the opportunity to evaluate your patient. For Medicare and Medicare HMO plans, please review the plan of care and approve it. It will need to be FAXED BACK to us at [phone] for Medicare purposes. Please let me know if there are questions or concerns regarding this plan of care. Physician Signature: Date:
--- NOTE | 2024-11-11 10:36 | HP.OTDCSUM ---
Discharge Summary D/C Summary: It has been my pleasure to treat KENTON RYAN under orders from SIOBHAN Tillman, for the diagnosis of lymphedema for a total of 7 visit(s). Please see the following information for a summary of their discharge status. Overall Improvement % Improvement: 80 Objective Objective/Function: left foot 24.5cm left ankle 29cm left Lower calf 31 cm left full calf 37 cm left BK 34cm Goals Patient Goals: Learn how to Manage Lymphedema and Learn how to Apply Compression Stockings Goal: Patient will demonstrate a 20% reduction in edema by discharge: Yes Goal: Patient will demonstrate adequate knowledge of self-bandaging by the end of the first week.: Yes Goal Progress: unable to do at night Goal: Patient will demonstrate adequate knowledge of self-massage by the end of the second week.: Yes Goal Progress: Goal Met Goal: Patient will demonstrate adequate knowledge of skin care and precautions by the end of the first week.: Yes Goal Progress: Goal Met Goal: Patient will demonstrate adequate knowledge of therapeutic exercises by discharge.: Yes Goal Progress: Goal Met Goal: Patient will select an appropriate compression garment and demonstrate adequate knowledge of correct donning technique, care and wearing schedule by discharge.: Yes Goal Progress: Goal Met Goal: Patient will voice understanding of need to replace compression garment every four to six months by discharge.: Yes Goal Progress: Goal Met Plan Plan: use compression pump perform ex move often D/C Information Discharge Comments: pt has demo understanding of performing self manual lymph massage. Pt demo understanding of using this yolanda. 3-4 x a day. pt also IND with donning and doffing his compressions socks- pt was not receptive to getting increase compression or different socks. pt at this time demo understanding of life long lymphedema mtg. pt d.c. d/c sentence: If there are questions or concerns regarding this patient's occupational therapy, please fell free to call me at [phone]. Thank you for the referral of this patient. Sincerely, Marcy Porter, OTR/L, CHT
== END 2024-10-31 19:00 | disposition home or self-care (01) ==
LOC: OT 13:00
PROVIDERS: PCP Internal Medicine; Referring Provider Physician Assistant; Visit Provider Physician Assistant
DX: I89.0 Lymphedema, not elsewhere classified (principal)
CPT/HCPCS: 97110; 97140; 97166; 97530

== ENCOUNTER → 2024-11-07 | Outpatient (CLI) | payer MEDICARE, MEDICAID, SELFPAY ==
--- NOTE | 2024-11-07 14:03 | ECHOD_ITS ---
Reason For Study Reason For Study: Lower Extremity Edema Procedure This was a 2D Doppler, Color Flow transthoracic echocardiogram. Exam performed in department. Left Ventricle Normal LV size. Left ventricular systolic function is normal. The left ventricular ejection fraction is 65 %. Stage 1 diastolic dysfunction. No regional wall motion abnormalities noted. Right Ventricle Normal RV size. Normal systolic function. Atria Normal left atrium. Normal right atrium. Mitral Valve Normal mitral valve. Tricuspid Valve Normal tricuspid valve. Aortic Valve Trisinus/trileaflet aortic valve. Pulmonic Valve Normal pulmonic valve. Great Vessels Normal aortic root. The pulmonary artery is normal size. Inferior vena cava collapse with respiration. Pericardium/Pleural No pericardial effusion. MMode/2D Measurements & Calculations LVIDd: 3.9 cm IVSd: 0.85 cm Ao root diam: 3.0 cm LVIDs: 2.5 cm LVPWd: 0.89 cm RVDd: 4.0 cm FS: 35.1 % LAV(MOD-bp): 35.6 ml LVAd ap4: 21.3 cm2 SV(MOD-sp4): 32.2 ml LAV(MOD-bp) Indexed: 22.1 ml/m2 LVLd ap4: 7.0 cm SI(MOD-sp4): 19.9 ml/m2 LAV(MOD-sp2): 32.8 ml EDV(MOD-sp4): 51.6 ml LAV(MOD-sp4): 38.1 ml EDV(sp4-el): 55.0 ml LVAs ap4: 11.5 cm2 LVLs ap4: 5.8 cm ESV(MOD-sp4): 19.5 ml ESV(sp4-el): 19.3 ml EF(MOD-sp4): 62.3 % EF(sp4-el): 64.9 % SV(sp4-el): 35.7 ml LA A4 area: 14.9 cm2 LA dimension(2D): 3.6 cm RA A4 area: 10.2 cm2 TAPSE: 1.6 cm Time Measurements MV dec time: 0.17 sec Doppler Measurements & Calculations MV E max deandre: 70.0 cm/sec Lat Peak E' Deandre: 11.3 cm/sec Med Peak E' Deandre: 8.4 cm/sec MV A max deandre: 76.6 cm/sec E/E' lat: 6.2 E/E' med: 8.3 MV E/A: 0.91 MV V2 max: 97.1 cm/sec MV P1/2t max deandre: 94.1 cm/sec Ao V2 max: 116.3 cm/sec MV max P.8 mmHg MV P1/2t: 63.9 msec Ao max P.4 mmHg MV V2 mean: 59.3 cm/sec Ao V2 mean: 76.7 cm/sec MV mean P.6 mmHg MV dec slope: 431.5 cm/sec2 Ao mean P.7 mmHg MV V2 VTI: 24.1 cm MVA(P1/2t): 3.4 cm2 Ao V2 VTI: 23.8 cm AV (velocity ratio): 0.80 LV V1 max: 90.3 cm/sec PA V2 max: 95.1 cm/sec LV V1 max P.3 mmHg LV V1 mean P.8 mmHg LV V1 mean: 61.7 cm/sec LV V1 VTI: 19.1 cm ECHO/Echo Complete Interpretation Summary Normal LV size. Left ventricular systolic function is normal. The left ventricular ejection fraction is 65 %. Stage 1 diastolic dysfunction. Ordering Physician: Teddy Robertson Referring Physician: Teddy Robertson Performed By: Mika Gonsales RCS
== END | disposition home or self-care (01) ==
LOC: CVS 14:00
PROVIDERS: PCP Internal Medicine; Referring Provider Student in an Organized Health Care Education/Training Program; Visit Provider Student in an Organized Health Care Education/Training Program
DX: R60.0 Localized edema (principal)
CPT/HCPCS: 93306

== ENCOUNTER 2024-12-20 13:00 | Outpatient (RCR) | payer MEDICARE, MEDICAID, SELFPAY ==
[2024-10-27 00:21] VITALS: BP 125/61; PULSE 74; RESP 18; TEMP 36.6
[2024-12-08 14:40] VITALS: BP 126/74; PULSE 83; RESP 18; TEMP 36.1
--- NOTE | 2024-12-08 15:06 | PCM.WC.HP ---
History of Present Illness Date of Service: 12/08/24 Chief Complaint: Bilateral lower extremity edema History of Wound: KENTON RYAN, is a 58 M who presents today for evaluation of significant lower extremity edema. He is known to me from the vascular surgery office as well as prior visits here. Last time he was here, he was treated with a few months of compression wraps to get his edema controlled to the point he could apply his zippered compression stockings on his own. He has been wearing his zippered 20-30mmHg compression stockings daily. He report he has been using his lymphedema pumps twice daily. He states he has been elevating his legs at all times of rest. He generally eats pre-made meals with unclear sodium content; but otherwise, reports a fair diet focused on protein and vegetables and stays away from junk food. He denies any other associated symptoms with his edema such as chest pain, increased SOB with activity or lying down. Recall that he has tried CircAid's in the past and he has limited left upper extremity mobility which makes these difficult to put on. At present, no wounds or weeping areas; however, he does have intermittent episodes of fluid-filled blisters which rupture and lead to wounds along with weeping. He does have skin thickening, skin flaking/dry skin, and some chronic red discoloration. Since his last visit he completed 5 weeks of OT (ended 11/16) in which he was instructed in manual lymphatic drainage, how to don/doff his compression stockings. It is noted that he is still in lower level compression with zippers as that is what he is able to don. He reports that he has been performing MLD as directed. He reports that he has been wearing his compression daily. He reports that he has been using his lymphedema pumps daily. He has been elevating when he can. His RLE edema seems to be well-managed, but he has significant LLE edema which is not well controlled at this time. 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 [facility] Medical History Developmental disability Cervical spine disease Atrial septal defect Leg edema Leg swelling Barretts esophagus Congenital heart disease Essential hypertension Home Medications ?Medication ?Instructions ?Recorded ?Last Taken ?Type metoprolol tartrate 50 1 tab PO DAILY 10/04/19 Unknown History mg-hydrochlorothiazide 25 mg tablet multivitamin 1 tab PO DAILY 10/04/19 Unknown History omeprazole 40 mg capsule,delayed 40 mg PO DAILY 11/08/20 Unknown History release tamsulosin 0.4 mg capsule 0.4 mg PO QHS 02/11/23 Unknown History Held on 05/19/24. Instructions: Pt is ill metamucil fiber bar PO DAILY 02/02/24 Unknown History torsemide 20 mg tablet 20 mg PO DAILY #90 tabs 05/10/24 Unknown Rx potassium chloride 10 mEq 20 meq (2 x 10 mEq) PO BID #360 06/30/24 Unknown Rx tablet,extended release tabs Allergy/AdvReac Type Severity Reaction Status Date / Time Penicillins AdvReac Severe SOB Verified 10/12/24 14:56 Family History Mother Hypertension Father Heart disease Sister CVA (cerebral vascular accident) Surgical History History of open heart surgery Hx of eye surgery Hx of neck surgery Fusion of spine, cervical region Social History Smoking Status: Never smoker alcohol intake: never substance use type: does not use Vital Signs Vital Signs Vital Signs: 12/08/24 14:40 Temperature 97.0 F L Temperature Source Temporal Pulse Rate 83 Respiratory Rate 18 Blood Pressure 126/74 H Blood Pressure Mean 91 Blood Pressure Source Monitor Blood Pressure Position Semi-Fowlers Blood Pressure Location Left Arm Oxygen Delivery Method Room Air Physical Exam Narrative Const General: cooperative, comfortable and no acute distress Orientation: alert, awake and oriented x3 HENMT Head: normocephalic and atraumatic Ears: hearing grossly normal bilaterally and external ears normal Nose: external nose normal Eyes General: appearance normal, both eyes and all related structures EOM: EOM intact bilaterally Neck Neck: normal visual inspection and trachea midline Resp Effort & Inspection: normal respiratory effort, able to speak in complete sentences, no grunting, not labored, no respiratory distress and no retractions Auscultation: clear to auscultation bilaterally Cardio Rate: regular rate Rhythm: regular rhythm Skin General: no rashes or lesions noted and dry skin Trauma: no lacerations or abrasions Wounds: no wounds Neuro General: moves all extremities and no focal motor deficits Cranial Nerves: CN's II-XI intact bilaterally Speech: speech normal Extremities Lower Extremity Edema: +1: Right and +3: Left Additional Details: Unable to palpate bilateral pedal pulses due to swelling but multiphasic Doppler signals present bilaterally He has bilateral lipodermatosclerosis, chronic discoloration Psych Mental Status: mental status grossly normal Mood: congruent mood Affect: normal affect Speech and Movement: speech and movement normal Attitude: cooperative Debridement Note Debridement Note No debridement was completed: No debridement was completed today Post-Debridement Measurements and Additional Note: Post-Debridement Measurements/Treatment - Nurse 1 - General Ulcer Assessment Start: 12/08/24 14:37 Freq: Status: Active Protocol: VICENTE Activity Type Activity Date Activity User E-sign Co-sign Detail Recorded Client Recorded Date Recorded By Document 12/08/24 14:40 [email or web address] [id number] 12/08/24 14:44 KW 12/08/24 14:40 WC - Today's Visit Information Type of service Follow-up Visit (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 Any new allergies or adverse reactions No Had a fall/change in ADL's that may No increase risk of falls Signs or symptoms of abuse and/or No neglect since last visit Have you been in the hospital since your No last visit? Has dressing in place as prescribed Yes Has compression in place as prescribed Yes Has offloadiing in place as prescribed N/A Experienced any changes in pain level or No management Left Footwear Regular Shoe Right Footwear Regular Shoe Pain Scale: 0-10 Numeric Is Patient Pain Free? Yes SHAYE - Nurse 1 - General Ulcer Measurement Start: 12/08/24 14:37 Freq: Status: Active Protocol: Activity Type Activity Date Activity User E-sign Co-sign Detail Recorded Client Recorded Date Recorded By Document 12/08/24 14:40 KW [id number] 12/08/24 14:44 KW 12/08/24 14:40 Wound Center Nurse 1 Right Calf (cm) 35 Right Ankle (cm) 25.5 Left Calf (cm) 43.5 Left Ankle (cm) 33.2 WC - Nurse 2 - General Ulcer CM Notes Start: 12/08/24 14:37 Freq: Status: Active Protocol: Activity Type Activity Date Activity User E-sign Co-sign Detail Recorded Client Recorded Date Recorded By Document 12/08/24 14:50 GM [id number] 12/08/24 14:50 GM 12/08/24 14:50 Pain Scale: 0-10 Numeric Is Patient Pain Free? Yes WC - Nurse 3 - General Ulcer D/C NN Start: 12/08/24 14:37 Freq: Status: Active Protocol: Activity Type Activity Date Activity User E-sign Co-sign Detail Recorded Client Recorded Date Recorded By Document 12/08/24 14:59 DL [id number] 12/08/24 15:01 DL 12/08/24 14:59 Wound Care Center Nurse 3 BLE -Multi-Layered Wrap Application Multi-Layer Comp - Bilat ($ ) -Multi-Layer Compression Bilat (Qty 1 applied) Treatment Response Procedure Tolerated Well Pain Scale: 0-10 Numeric Is Patient Pain Free? Yes WC - Visit Discharge Discharge Condition Stable Ambulatory Status Ambulatory Transportation Caregiver Notes: Dressing applied today per Sammy Monk. Charges/Coding Visit Charges Office Visits / Consults: 24349 OV L4 Est 30min Assessment/Plan Assessment/Plan (1) Lymphedema: CODE(S): I89.0 - Lymphedema, not elsewhere classified PLAN: Plan Will apply 3M wraps to the LLE for improved edema management. This will remain in place for 1 week. He is to keep this wrap clean and dry. He may remove it prior to his next appointment to shower before having it replaced here. He will continue to use his compression stockings on the RLE. He is encouraged to continue to use his lymphedema pumps, ideally 2-3 times a day. I advise contacting the company to ensure the pumps are functioning appropriately. He is instructed to elevate his legs at or above the level of his heart at all times of rest. He is instructed to avoid prolonged periods of idle sitting/standing. He will return in 1 week, sooner as needed. This plan was discussed with his sister Marika via phone.
[2024-12-15 14:04] VITALS: BP 140/70; PULSE 111; RESP 16; TEMP 36.3
--- NOTE | 2024-12-15 14:55 | PN.PCM_ITS ---
History of Present Illness Date of Service: 12/15/24 Chief Complaint: Bilateral lower extremity edema History of Wound: KENTON RYAN, is a 58 M who presents today for evaluation of significant lower extremity edema. He is known to me from the vascular surgery office as well as prior visits here. Last time he was here, he was treated with a few months of compression wraps to get his edema controlled to the point he could apply his zippered compression stockings on his own. He has been wearing his zippered 20-30mmHg compression stockings daily. He report he has been using his lymphedema pumps twice daily. He states he has been elevating his legs at all times of rest. He generally eats pre-made meals with unclear sodium content; but otherwise, reports a fair diet focused on protein and vegetables and stays away from junk food. He denies any other associated symptoms with his edema such as chest pain, increased SOB with activity or lying down. Recall that he has tried CircAid's in the past and he has limited left upper extremity mobility which makes these difficult to put on. At present, no wounds or weeping areas; however, he does have intermittent episodes of fluid-filled blisters which rupture and lead to wounds along with weeping. He does have skin thickening, skin flaking/dry skin, and some chronic red discoloration. Since his last visit he completed 5 weeks of OT (ended 11/16) in which he was instructed in manual lymphatic drainage, how to don/doff his compression sto ckings. It is noted that he is still in lower level compression with zippers as that is what he is able to don. He reports that he has been performing MLD as directed. He reports that he has been wearing his compression daily. He reports that he has been using his lymphedema pumps daily. He has been elevating when he can. His RLE edema seems to be well-managed, but he has significant LLE edema which is not well controlled at this time. 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 Subjective Subjective Favian did well with the 3M compression wraps this week, LLE edema has significantly improved. His sister Marika informed us that they are trying to arrange for [facility] with [facility] to apply the 3M wraps weekly instead of him coming here weekly to reduce transportation burden. Objective Data Objective Data Vital Signs: Vital Signs Temp Pulse Resp BP O2 Del Method 97.3 F L 111 H 16 140/70 H Room Air 12/15/24 14:04 12/15/24 14:04 12/15/24 14:04 12/15/24 14:04 12/15/24 14:04 Oxygen Delivery Method Room Air Charges/Coding Visit Charges Office Visits / Consults: 05029 OV L3 Est 20min Physical Exam Narrative Const General: cooperative, comfortable and no acute distress Orientation: alert, awake and oriented x3 HENMT Head: normocephalic and atraumatic Ears: hearing grossly normal bilaterally and external ears normal Nose: external nose normal Eyes General: appearance normal, both eyes and all related structures EOM: EOM intact bilaterally Neck Neck: normal visual inspection and trachea midline Resp Effort & Inspection: normal respiratory effort, able to speak in complete sentences, no grunting, not labored, no respiratory distress and no retractions Auscultation: clear to auscultation bilaterally Cardio Rate: regular rate Rhythm: regular rhythm Skin General: no rashes or lesions noted and dry skin Trauma: no lacerations or abrasions Wounds: no wounds Neuro General: moves all extremities and no focal motor deficits Cranial Nerves: CN's II-XI intact bilaterally Speech: speech normal Extremities Lower Extremity Edema: +1: Right and +3: Left Additional Details: Unable to palpate bilateral pedal pulses due to swelling but multiphasic Doppler signals present bilaterally He has bilateral lipodermatosclerosis, chronic discoloration Psych Mental Status: mental status grossly normal Mood: congruent mood Affect: normal affect Speech and Movement: speech and movement normal Attitude: cooperative Debridement Note Debridement Note No debridement was completed: No debridement was completed today Post-Debridement Measurements and Additional Note: Post-Debridement Measurements/Treatment - Nurse 1 - General Ulcer Assessment Start: 12/08/24 14:37 Freq: Status: Active Protocol: VICENTE Activity Type Activity Date Activity User E-sign Co-sign Detail Recorded Client Recorded Date Recorded By Document 12/08/24 14:40 [id number] 12/08/24 14:44 KW Document 12/15/24 14:04 KW [id number] 12/15/24 14:12 KW 12/08/24 12/15/24 14:40 14:04 - Today's Visit Information Type of service Follow-up Visit Follow-up Visit (Physician/MACHINE SETTER AND REPAIRER (Physician/MACHINE SETTER AND REPAIRER ) ) Arrival Mode Ambulatory Ambulatory Accompanied by father Patient Identification Verified (Name & Yes Yes ) Vital Signs Temperature (97.8 F-99.1 F) 97.0 F L 97.3 F L Temperature Source Temporal Temporal Pulse Rate (60-100) 83 111 H Pulse Location Monitor Monitor Respiratory Rate (12-18) 18 16 Respiratory rate source Observation Observation Oxygen Delivery Method Room Air Room Air Blood Pressure (90/60-120/80) 126/74 H 140/70 H Blood Pressure Mean (mm Hg) 91 93 Source Monitor Monitor Position Semi-Fowlers Semi-Fowlers Blood Pressure Location Left Arm Right Arm History Since Last Visit- (Skip if this is Patient's initial visit) Have you changed medications since your No No last visit? Any new allergies or adverse reactions No No Had a fall/change in ADL's that may No No increase risk of falls Signs or symptoms of abuse and/or No No neglect since last visit Have you been in the hospital since your No No last visit? Has dressing in place as prescribed Yes No Has compression in place as prescribed Yes No Has offloadiing in place as prescribed N/A N/A Experienced any changes in pain level or No No management Left Footwear Regular Shoe Regular Shoe Right Footwear Regular Shoe Regular Shoe Pain Scale: 0-10 Numeric Is Patient Pain Free? Yes Yes WC - Nurse 1 - General Ulcer Measurement Start: 12/08/24 14:37 Freq: Status: Active Protocol: Activity Type Activity Date Activity User E-sign Co-sign Detail Recorded Client Recorded Date Recorded By Document 12/08/24 14:40 KW [id number] 12/08/24 14:44 KW Document 12/15/24 14:04 KW [id number] 12/15/24 14:12 KW 12/08/24 12/15/24 14:40 14:04 Wound Center Nurse 1 Right Calf (cm) 35 32 Right Ankle (cm) 25.5 24 Left Calf (cm) 43.5 38 Left Ankle (cm) 33.2 28.5 WC - Nurse 2 - General Ulcer CM Notes Start: 12/08/24 14:37 Freq: Status: Active Protocol: Activity Type Activity Date Activity User E-sign Co-sign Detail Recorded Client Recorded Date Recorded By Document 12/08/24 14:50 GM [id number] 12/08/24 14:50 GM Document 12/15/24 14:19 GM [id number] 12/15/24 14:19 GM 12/08/24 12/15/24 14:50 14:19 Pain Scale: 0-10 Numeric Is Patient Pain Free? Yes Yes WC - Nurse 3 - General Ulcer D/C NN Start: 12/08/24 14:37 Freq: Status: Active Protocol: Activity Type Activity Date Activity User E-sign Co-sign Detail Recorded Client Recorded Date Recorded By Document 12/08/24 14:59 DL [id number] 12/08/24 15:01 DL Document 12/15/24 14:30 BMF [id number] 12/15/24 14:31 BMF 12/08/24 12/15/24 14:59 14:30 Wound Care Center Nurse 3 RLE -Other reapplied pts own compression stocking BLE -Multi-Layered Wrap Application Multi-Layer Comp - Bilat ($ ) -Multi-Layer Compression Bilat (Qty 1 applied) LLE -Multi-Layered Wrap Application Multi-Layer Comp - Left ($) -Multi-Layer Compression Left (Qty 1 applied) Treatment Response Procedure Tolerated Well Pain Scale: 0-10 Numeric Is Patient Pain Free? Yes Yes WC - Visit Discharge Discharge Condition Stable Stable Ambulatory Status Ambulatory Ambulatory,Cane Transportation Caregiver Private Auto Notes: Dressing applied today per Sammy Monk. Assessment/Plan Assessment/Plan (1) Lymphedema: CODE(S): I89.0 - Lymphedema, not elsewhere classified PLAN: Plan Will apply 3M wraps to the LLE for improved edema management. This will remain in place for 1 week. He is to keep this wrap clean and dry. He may remove it prior to his next appointment to shower before having it replaced here. He will continue to use his compression stockings on the RLE. He is encouraged to continue to use his lymphedema pumps, ideally 2-3 times a day. I advise contacting the company to ensure the pumps are functioning appropriately. He is instructed to elevate his legs at or above the level of his heart at all times of rest. He is instructed to avoid prolonged periods of idle sitting/standing. Order was signed and faxed over to [facility] for patient to receive [facility] for edema management via weekly application of compression wraps. He will return in 1 week, sooner as needed.
[2024-12-20 13:33] VITALS: BP 117/79; PULSE 113; RESP 16; TEMP 36.5
== END 2024-12-26 23:59 | disposition home or self-care (01) ==
LOC: WC 13:00
PROVIDERS: PCP Internal Medicine; Referring Provider Physician Assistant; Visit Provider Physician Assistant
DX: I89.0 Lymphedema, not elsewhere classified (principal); I10 Essential (primary) hypertension; Z79.899 Other long term (current) drug therapy
CPT/HCPCS: 29581; 99212; 99213; G0463

== ENCOUNTER → 2024-12-27 | Outpatient (CLI) | payer MEDICARE, MEDICAID, SELFPAY ==
[2024-12-27 14:08] LABS: PSA,Total - Annual Screen 2.29 ng/mL (0.02-4.00)
== END | disposition home or self-care (01) ==
LOC: LAB 12:22
PROVIDERS: PCP Internal Medicine; Referring Provider Urology; Visit Provider Urology
DX: Z12.5 Encounter for screening for malignant neoplasm of prostate (principal)
CPT/HCPCS: 36415; 84153; G0103

== ENCOUNTER → 2024-12-29 | Outpatient (CLI) | payer MEDICARE, MEDICAID, SELFPAY | END | disposition home or self-care (01) | LOC: US 10:58 | PROVIDERS: PCP Internal Medicine; Referring Provider Urology; Visit Provider Urology | DX: N43.1 Infected hydrocele (principal) | CPT/HCPCS: 76870; 93976 ==

== ENCOUNTER 2025-01-12 14:07 | Outpatient (RCR) | payer MEDICARE, MEDICAID, SELFPAY ==
--- NOTE | 2025-01-12 08:57 | PN.PCM_ITS ---
History of Present Illness Date of Service: 01/12/25 Chief Complaint: Bilateral lower extremity edema History of Wound: KENTON RYAN, is a 58 M who presents today for evaluation of significant lower extremity edema. He is known to me from the vascular surgery office as well as prior visits here. Last time he was here, he was treated with a few months of compression wraps to get his edema controlled to the point he could apply his zippered compression stockings on his own. He has been wearing his zippered 20-30mmHg compression stockings daily. He report he has been using his lymphedema pumps twice daily. He states he has been elevating his legs at all times of rest. He generally eats pre-made meals with unclear sodium content; but otherwise, reports a fair diet focused on protein and vegetables and stays away from junk food. He denies any other associated symptoms with his edema such as chest pain, increased SOB with activity or lying down. Recall that he has tried CircAid's in the past and he has limited left upper extremity mobility which makes these difficult to put on. At present, no wounds or weeping areas; however, he does have intermittent episodes of fluid-filled blisters which rupture and lead to wounds along with weeping. He does have skin thickening, skin flaking/dry skin, and some chronic red discoloration. Since his last visit he completed 5 weeks of OT (ended 11/16) in which he was instructed in manual lymphatic drainage, how to don/doff his compression sto ckings. It is noted that he is still in lower level compression with zippers as that is what he is able to don. He reports that he has been performing MLD as directed. He reports that he has been wearing his compression daily. He reports that he has been using his lymphedema pumps daily. He has been elevating when he can. His RLE edema seems to be well-managed, but he has significant LLE edema which is not well controlled at this time. 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
--- NOTE | 2025-01-12 08:57 | PCM.WC.PN ---
History of Present Illness Date of Service: 01/12/25 Chief Complaint: Bilateral lower extremity edema History of Wound: KENTON RYAN, is a 59 M who presents today for evaluation of significant lower extremity edema. He is known to me from the vascular surgery office as well as prior visits here. Last time he was here, he was treated with a few months of compression wraps to get his edema controlled to the point he could apply his zippered compression stockings on his own. He has been wearing his zippered 20-30mmHg compression stockings daily. He report he has been using his lymphedema pumps twice daily. He states he has been elevating his legs at all times of rest. He generally eats pre-made meals with unclear sodium content; but otherwise, reports a fair diet focused on protein and vegetables and stays away from junk food. He denies any other associated symptoms with his edema such as chest pain, increased SOB with activity or lying down. Recall that he has tried CircAid's in the past and he has limited left upper extremity mobility which makes these difficult to put on. At present, no wounds or weeping areas; however, he does have intermittent episodes of fluid-filled blisters which rupture and lead to wounds along with weeping. He does have skin thickening, skin flaking/dry skin, and some chronic red discoloration. Since his last visit, [facility] has been in place and have been applying the 3M wraps for compression twice weekly. This has helped significantly in the management of his edema overally. 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 Subjective Subjective He continues to generally do well with the 3M wraps. With the warmer weather, he has had increased swelling in his toes outside of the wraps. Charges/Coding Visit Charges Office Visits / Consults: 36014 OV L3 Est 20min Physical Exam Narrative Const General: cooperative, comfortable and no acute distress Orientation: alert, awake and oriented x3 HENMT Head: normocephalic and atraumatic Ears: hearing grossly normal bilaterally and external ears normal Nose: external nose normal Eyes General: appearance normal, both eyes and all related structures EOM: EOM intact bilaterally Neck Neck: normal visual inspection and trachea midline Resp Effort & Inspection: normal respiratory effort, able to speak in complete sentences, no grunting, not labored, no respiratory distress and no retractions Auscultation: clear to auscultation bilaterally Cardio Rate: regular rate Rhythm: regular rhythm Skin General: no rashes or lesions noted and dry skin Trauma: no lacerations or abrasions Wounds: no wounds Neuro General: moves all extremities and no focal motor deficits Cranial Nerves: CN's II-XI intact bilaterally Speech: speech normal Extremities Lower Extremity Edema: Right Ankle: 27 cm Right Calf: 34 cm Left Ankle: 30 cm Left Calf: 34 cm Psych Mental Status: mental status grossly normal Mood: congruent mood Affect: normal affect Speech and Movement: speech and movement normal Attitude: cooperative Debridement Note Debridement Note No debridement was completed: No debridement was completed today Assessment/Plan Assessment/Plan (1) Lymphedema: CODE(S): I89.0 - Lymphedema, not elsewhere classified PLAN: Plan Will continue with 3M wraps changed biweekly for management of his bilateral lower extremity edema. I advise elevation of his legs at or above the level of his heart at all times of rest, periodic exercise (ambulation or calf pumps) throughout the day with avoidance of prolonged idle sitting/standing, and use of his lymphedema pumps 2-3 times daily for 60 minutes at a time if possible. I also recommend applying lotion such as Eucerin with Urea nightly to the bilateral lower legs and feet. [facility] will continue to provide the wrap changes on a weekly basis. He will return to see me in 4 weeks, sooner as needed.
[2025-01-12 14:12] VITALS: BP 140/67; PULSE 90; RESP 15; TEMP 36.4
== END 2025-01-26 23:59 | disposition home or self-care (01) ==
LOC: WC 14:07
PROVIDERS: PCP Internal Medicine; Referring Provider Physician Assistant; Visit Provider Physician Assistant
DX: I89.0 Lymphedema, not elsewhere classified (principal); I10 Essential (primary) hypertension; Z79.899 Other long term (current) drug therapy
CPT/HCPCS: 99213; G0463

== ENCOUNTER 2025-01-18 10:14 | Day surgery (SDC) | payer MEDICARE, MEDICAID, SELFPAY ==
--- NOTE | 2025-01-04 10:59 | PAT.ANESEVAL ---
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 When Was Last Pacemaker Check QUESTION #4 FULL TEXT: You/Your Family Experience fever (hyperthermia) with Anesthesia Last Oral Intake Last Oral intake: Last Oral Intake NPO since Meds taken in AM with sips of water? Meds patient instructed to take am of surgery PONV PONV - manager investment banking: PONV - manager investment banking Female No 01/04/25 09:19 HX of Motion Sickness No 01/04/25 09:19 HX of N/V After Surgery No 01/04/25 09:19 Non-Smoker Yes 01/04/25 09:19 Duration of Surgery greater No 01/04/25 09:19 than 60 minutes Number of Risk Factors 1 01/04/25 09:19 PONV Score Low Risk 01/04/25 09:19 Height & Weight Height & Weight: Anesthesia: Height & Weight Height 4 ft 11 in 10/12/24 07:31 Respiratory Assessment Respiratory Assessment - manager investment banking: Respiratory Tract Infection Hx - manager investment banking Hx Respiratory Tract Infection No 01/04/25 09:19 STOP Sleep Apnea STOP Sleep Apnea - manager investment banking: STOP Sleep Apnea - manager investment banking Hx Hypertension No: D/C'S BP MEDS PER PCP 01/04/25 09:19 Hx Sleep Apnea No 01/04/25 09:19 CPAP BIPAP Do you snore loudly (louder No 01/04/25 09:19 than talking or can be heard Do you often feel tired/ No 01/04/25 09:19 fatigued/ sleepy during daytime? Has anyone observed you stop No 01/04/25 09:19 breathing during sleep? STOP Results Negative 01/04/25 09:19 QUESTION #5 FULL TEXT : Do you snore loudly (louder than talking or can be heard through closed doors)? 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 Specify any problems Hx of Preganancy in last 3 N/A 01/04/25 09:19 Months Nurse Filling Out Transfusion VCHRISTIN 01/04/25 09:19 & Questions: Date: 01/04/25 01/04/25 09:19 Time: 09:20 01/04/25 09:19 Patient unable to answer at this time (ie. confused, unrespo /Reproduction History /Reproductive History - manager investment banking: /Reproductive Hx- manager investment banking Hx Now No 01/04/25 09:19 Gestational Age (in weeks): EDC: Hx Hx Para Hx Section SAB No 01/04/25 09:19 [facility] History (Updated 01/04/25 @ 09:18 by Tasha Hauser) Wears glasses Injury of head and neck Difficulty swallowing Difficulty chewing Non-smoker Shortness of breath on exertion History of echocardiogram Cardiology follow-up encounter Developmental disability Cervical spine disease Atrial septal defect Leg edema Leg swelling Barretts esophagus Congenital heart disease Essential hypertension Home Medications ?Medication ?Instructions ?Recorded ?Last Taken ?Type metoprolol tartrate 50 1 tab PO DAILY 10/04/19 Unknown History mg-hydrochlorothiazide 25 mg tablet multivitamin 1 tab PO DAILY 10/04/19 Unknown History omeprazole 40 mg capsule,delayed 40 mg PO DAILY 11/08/20 Unknown History release tamsulosin 0.4 mg capsule 0.4 mg PO QHS 02/11/23 Unknown History Held on 05/19/24. Instructions: Pt is ill metamucil fiber bar PO DAILY 02/02/24 Unknown History torsemide 20 mg tablet 20 mg PO DAILY #90 tabs 05/10/24 Unknown Rx potassium chloride 10 mEq 20 meq (2 x 10 mEq) PO BID #360 06/30/24 Unknown Rx tablet,extended release tabs Allergy/AdvReac Type Severity Reaction Status Date / Time Penicillins AdvReac Severe SOB Verified 01/04/25 09:00 Family History Mother Hypertension Father Heart disease Sister CVA (cerebral vascular accident) Surgical History (Updated 01/04/25 @ 09:18 by Tasha Hauser) Hx of hernia repair History of open heart surgery Hx of eye surgery Hx of neck surgery Fusion of spine, cervical region Social History Smoking Status: Never smoker alcohol intake: never substance use type: does not use Audit: Pertinent Findings Pertinent Findings EKG Perinent findings: EKG 11/18/2019 sinus rhythm Echo (EF%) pertinent findings: Echo 11/07/2024 left ventricular systolic function is normal. EF 65%. Stage I diastolic dysfunction Current Visit Impressions Current Visit Impressions: Cardiology note ordered BMP to assess kidney function Recommendation Anesthesia Recommendation Anesthesia recommendation: F/U recommended (Need BMP results ordered from cardiology visit to assess kidney function) Follow up Details BMP Recommendation: Yes BMP Rec Details: Need BMP results from cardiology visit to assess kidney function
--- NOTE | 2025-01-04 17:34 | PAT.ANESEVAL ---
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 When Was Last Pacemaker Check QUESTION #4 FULL TEXT: You/Your Family Experience fever (hyperthermia) with Anesthesia Last Oral Intake Last Oral intake: Last Oral Intake NPO since Meds taken in AM with sips of water? Meds patient instructed to take am of surgery PONV PONV - cooky machine operator: PONV - cooky machine operator Female No 01/04/25 09:19 HX of Motion Sickness No 01/04/25 09:19 HX of N/V After Surgery No 01/04/25 09:19 Non-Smoker Yes 01/04/25 09:19 Duration of Surgery greater No 01/04/25 09:19 than 60 minutes Number of Risk Factors 1 01/04/25 09:19 PONV Score Low Risk 01/04/25 09:19 Height & Weight Height & Weight: Anesthesia: Height & Weight Height 4 ft 11 in 10/12/24 07:31 Respiratory Assessment Respiratory Assessment - cooky machine operator: Respiratory Tract Infection Hx - cooky machine operator Hx Respiratory Tract Infection No 01/04/25 09:19 STOP Sleep Apnea STOP Sleep Apnea - cooky machine operator: STOP Sleep Apnea - cooky machine operator Hx Hypertension No: D/C'S BP MEDS PER PCP 01/04/25 09:19 Hx Sleep Apnea No 01/04/25 09:19 CPAP BIPAP Do you snore loudly (louder No 01/04/25 09:19 than talking or can be heard Do you often feel tired/ No 01/04/25 09:19 fatigued/ sleepy during daytime? Has anyone observed you stop No 01/04/25 09:19 breathing during sleep? STOP Results Negative 01/04/25 09:19 QUESTION #5 FULL TEXT : Do you snore loudly (louder than talking or can be heard through closed doors)? 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 Specify any problems Hx of Preganancy in last 3 N/A 01/04/25 09:19 Months Nurse Filling Out Transfusion VCHRISTIN 01/04/25 09:19 & Questions: Date: 01/04/25 01/04/25 09:19 Time: 09:20 01/04/25 09:19 Patient unable to answer at this time (ie. confused, unrespo /Reproduction History /Reproductive History - cooky machine operator: /Reproductive Hx- cooky machine operator Hx Now No 01/04/25 09:19 Gestational Age (in weeks): EDC: Hx Hx Para Hx Section SAB No 01/04/25 09:19 [facility] Medical History (Updated 01/04/25 @ 09:18 by Tasha Hauser) Wears glasses Injury of head and neck Difficulty swallowing Difficulty chewing Non-smoker Shortness of breath on exertion History of echocardiogram Cardiology follow-up encounter Developmental disability Cervical spine disease Atrial septal defect Leg edema Leg swelling Barretts esophagus Congenital heart disease Essential hypertension Home Medications ?Medication ?Instructions ?Recorded ?Last Taken ?Type metoprolol tartrate 50 1 tab PO DAILY 10/04/19 Unknown History mg-hydrochlorothiazide 25 mg tablet multivitamin 1 tab PO DAILY 10/04/19 Unknown History omeprazole 40 mg capsule,delayed 40 mg PO DAILY 11/08/20 Unknown History release tamsulosin 0.4 mg capsule 0.4 mg PO QHS 02/11/23 Unknown History Held on 05/19/24. Instructions: Pt is ill metamucil fiber bar PO DAILY 02/02/24 Unknown History torsemide 20 mg tablet 20 mg PO DAILY #90 tabs 05/10/24 Unknown Rx potassium chloride 10 mEq 20 meq (2 x 10 mEq) PO BID #360 06/30/24 Unknown Rx tablet,extended release tabs Allergy/AdvReac Type Severity Reaction Status Date / Time Penicillins AdvReac Severe SOB Verified 01/04/25 09:00 Family History Mother Hypertension Father Heart disease Sister CVA (cerebral vascular accident) Surgical History (Updated 01/04/25 @ 09:18 by Tasha Hauser) Hx of hernia repair History of open heart surgery Hx of eye surgery Hx of neck surgery Fusion of spine, cervical region Social History Smoking Status: Never smoker alcohol intake: never substance use type: does not use Audit: Pertinent Findings HISTORY of Pertinent Findings History of Pertinent Findings: EKG Pertinent Findings EKG Perinent findings EKG 11/18/2019 sinus rhythm 01/04/25 11:05 Echo Pertinent Findings Echo (EF%) pertinent findings Echo 11/07/2024 left 01/04/25 11:05 ventricular systolic function is normal. EF 65%. Stage I diastolic dysfunction Pertinent Findings Additional pertinent findings: BMP shows good kidney function Recommendation Anesthesia Recommendation Anesthesia recommendation: OPTIMIZED for anesthesia
[2025-01-18] VITALS (10 sets, daily range): BP systolic 121–147; BP diastolic 64–83; PULSE 90–98; RESP 16–18; TEMP 36.4–37.8; O2SAT 91–98; BMI 29.3
--- NOTE | 2025-01-18 06:59 | PCM.HP.STD ---
HPI - General General Date of Service: 01/18/25 Chief Complaint: Hydrocele HPI Narrative KENTON RYAN, is a 59 M who presents for a hydrocelectomy for a very large hydrocele [facility] Medical History (Updated 01/04/25 @ 09:18 by Tasha Hauser) Wears glasses Injury of head and neck Difficulty swallowing Difficulty chewing Non-smoker Shortness of breath on exertion History of echocardiogram Cardiology follow-up encounter Developmental disability Cervical spine disease Atrial septal defect Leg edema Leg swelling Barretts esophagus Congenital heart disease Essential hypertension Home Medications ?Medication ?Instructions ?Recorded ?Last Taken ?Type multivitamin 1 tab PO DAILY 10/04/19 Unknown History tamsulosin 0.4 mg capsule 0.4 mg PO QHS 02/11/23 Unknown History metamucil fiber bar See Rx Instructions PO DAILY 02/02/24 Unknown History torsemide 20 mg tablet 20 mg PO DAILY #90 tabs 05/10/24 Unknown Rx potassium chloride 10 mEq 20 meq (2 x 10 mEq) PO BID #360 06/30/24 Unknown Rx tablet,extended release tabs cholecalciferol (vitamin D3) 50 50 mcg PO DAILY 01/05/25 Unknown History mcg (2,000 unit) capsule (Vitamin D3) pantoprazole 40 mg tablet,delayed 40 mg PO DAILY 01/05/25 Unknown History release zinc gluconate 50 mg tablet 50 mg PO DAILY 01/05/25 Unknown History Allergy/AdvReac Type Severity Reaction Status Date / Time Penicillins AdvReac Severe SOB Verified 01/04/25 09:00 Family History Mother Hypertension Father Heart disease Sister CVA (cerebral vascular accident) Surgical History (Updated 01/04/25 @ 09:18 by Tasha Hauser) Hx of hernia repair History of open heart surgery Hx of eye surgery Hx of neck surgery Fusion of spine, cervical region Social History Smoking Status: Never smoker alcohol intake: never substance use type: does not use
[2025-01-18] MEDS: Lactated Ringers 1,000 ML 15 ML IV (11:12)
--- NOTE | 2025-01-18 11:41 | PCM.PRE.AN2 ---
ASA Classification* ASA Classification ASA Classification: 3 Assessment & Plan Anesthesia* Anesthesia Assessment Anesthesia Assessment: Discussed sedation and/or anesthesia options, risks, benefits, and alternatives with patient/parents/legal guardian/POA. Questions invited. The patient/parents/legal guardian/POA seems to understand and agrees to proceed with anesthesia plan. Reviewed the physical assessment, medical history, allergy history and patient home medications list prior to surgery/procedure/anesthetic and documented any changes. Performed airway and anesthesia risk assessments. Anesthesia Type Anesthesia Type: General History Source History Obtained from:: Patient and Chart Anesthesia Focused Assessment* Temperature: 97.6 F Pulse Rate: 90 Blood Pressure: 143/66 Respiratory Rate: 18 Pulse Ox: 98 Oxygen Delivery Method: Room Air Airway Assessment Mouth opens: 2 cm Mallampati Score: IV Teeth Condition: Missing (Patient is edentulous.) Neck Range of motion (ROM): Limited ROM (Severe Restriction secondary to cervical fusion.) Labs Anesthesia Preop lab: CBC WBC 7.3 K/mm3 (4.4-11.0) 10/12/24 16:10 10/12/24 RBC 5.31 M/mm3 (4.6-6.2) 10/12/24 16:10 10/12/24 Hgb 15.5 g/dL (13.0-16.5) 10/12/24 16:10 10/12/24 Hct 44.3 % (40-54) 10/12/24 16:10 10/12/24 Plt Count 378 K/mm3 (150-450) 10/12/24 16:10 10/12/24 CHEMISTRY Potassium 3.4 mmol/L (3.3-5.1) 10/12/24 16:10 10/12/24 Sodium 134 mmol/L (133-145) 10/12/24 16:10 10/12/24 BUN 11 mg/dL (4-19) 10/12/24 16:10 10/12/24 Creatinine 0.81 mg/dL (0.70-1.20) 10/12/24 16:10 10/12/24 Glucose 100 mg/dL (70-99) H 10/12/24 16:10 10/12/24 TSH 1.080 uIU/mL (0.300-4.200) 10/12/24 16:10 10/12/24 COAG Pre-Assessment Diagnosis/Proposed Procedure Planned Operative Procedure(s): (B) Hydrocelectomy Anesthesia History 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 When Was Last Pacemaker Check QUESTION #4 FULL TEXT: You/Your Family Experience fever (hyperthermia) with Anesthesia Last Oral Intake Last Oral intake: Last Oral Intake NPO since 00:00 01/18/25 10:42 Meds taken in AM with sips of Yes 01/18/25 10:42 water? 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 coordinator Female No 01/04/25 09:19 HX of Motion Sickness No 01/04/25 09:19 HX of N/V After Surgery No 01/04/25 09:19 Non-Smoker Yes 01/04/25 09:19 Duration of Surgery greater No 01/04/25 09:19 than 60 minutes Number of Risk Factors 1 01/04/25 09:19 PONV Score Low Risk 01/04/25 09:19 Height & Weight Height & Weight: Anesthesia: Height & Weight Height 4 ft 11 in 01/18/25 10:42 Weight: 66 kg 01/18/25 10:42 Body Mass Index (BMI) 29.3 01/18/25 10:42 Respiratory Assessment Respiratory Assessment - regional office coordinator: Respiratory Tract Infection Hx - regional office coordinator Hx Respiratory Tract Infection No 01/04/25 09:19 STOP Sleep Apnea STOP Sleep Apnea - regional office coordinator: STOP Sleep Apnea - regional office coordinator Hx Hypertension No: D/C'S BP MEDS PER PCP 01/04/25 09:19 Hx Sleep Apnea No 01/04/25 09:19 CPAP BIPAP Do you snore loudly (louder No 01/04/25 09:19 than talking or can be heard Do you often feel tired/ No 01/04/25 09:19 fatigued/ sleepy during daytime? Has anyone observed you stop No 01/04/25 09:19 breathing during sleep? STOP Results Negative 01/04/25 09:19 QUESTION #5 FULL TEXT : Do you snore loudly (louder than talking or can be heard through closed doors)? 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 Specify any problems Hx of Preganancy in last 3 N/A 01/04/25 09:19 Months Nurse Filling Out Transfusion VCHRISTIN 01/04/25 09:19 & Questions: Date: 01/04/25 01/04/25 09:19 Time: 09:20 01/04/25 09:19 Patient unable to answer at this time (ie. confused, unrespo /Reproduction History /Reproductive History - regional office coordinator: /Reproductive Hx- regional office coordinator Hx Now No 01/04/25 09:19 Gestational Age (in weeks): EDC: Hx Hx Para Hx Section SAB No 01/04/25 09:19 Active Medications Active Medications: Current Medications Generic Name Dose Route Start Last Admin Trade Name Freq PRN Reason Stop Dose Admin Cefazolin Sodium 2 gm/ Sodium 110 mls @ 200 mls/hr 01/18/25 12:10 Chloride IV 01/18/25 12:42 INTRAOP ONE Lactated Ringer's 1,000 mls @ 15 mls/hr 01/18/25 10:30 01/18/25 11:12 IV 15 mls/hr .Q48H NATALI Administration PFSH Medical History Wears glasses Injury of head and neck Difficulty swallowing Difficulty chewing Non-smoker Shortness of breath on exertion History of echocardiogram Cardiology follow-up encounter Developmental disability Cervical spine disease Atrial septal defect Leg edema Leg swelling Barretts esophagus Congenital heart disease Essential hypertension Home Medications ?Medication ?Instructions ?Recorded ?Last Taken ?Type multivitamin 1 tab PO DAILY 10/04/19 01/17/25 History tamsulosin 0.4 mg capsule 0.4 mg PO QHS 02/11/23 01/17/25 History metamucil fiber bar See Rx Instructions PO DAILY 02/02/24 01/17/25 History torsemide 20 mg tablet 20 mg PO DAILY #90 tabs 05/10/24 01/17/25 Rx potassium chloride 10 mEq 20 meq (2 x 10 mEq) PO BID #360 06/30/24 01/17/25 Rx tablet,extended release tabs cholecalciferol (vitamin D3) 50 50 mcg PO DAILY 01/05/25 01/17/25 History mcg (2,000 unit) capsule (Vitamin D3) pantoprazole 40 mg tablet,delayed 40 mg PO DAILY 01/05/25 01/18/25 History release zinc gluconate 50 mg tablet 50 mg PO DAILY 01/05/25 01/17/25 History Allergy/AdvReac Type Severity Reaction Status Date / Time Penicillins AdvReac Severe SOB Verified 01/18/25 10:40 Family History Mother Hypertension Father Heart disease Sister CVA (cerebral vascular accident) Surgical History Hx of hernia repair History of open heart surgery Hx of eye surgery Hx of neck surgery Fusion of spine, cervical region Social History Smoking Status: Never smoker alcohol intake: never substance use type: does not use Review of Systems (Anesthesia) ROS Narrative System reviewed and no additional complaints, except as documented.
--- NOTE | 2025-01-18 14:14 | DCINST_ITS ---
Discharge Instructions DC O2, CPAP, BIPAP needs Home O2 Discharge instructions: No Dressing / Incision Discharge Activity: Return to Normal Activity May shower in (days): 1 Additional Activity Instructions:: ALBARO to suction Dressing / Incision Call your doctor if you observe: Fever of 101 or Higher Follow Up Care Please Follow Up With: Cuco Mann MD When: Call [phone] for an appointment Test Results: Test results from this visit will be discussed in further detail at your follow- up appointment, if applicable. Discharge Plan Admission Primary Reason for Your Visit: hydrocelectomy Attending Provider: Cuco Mann Primary Care Provider: Taylor Enrique Instructions Print Language: Bur[place]ian Discharge Orders/Prescriptions Prescriptions: New oxycodone 5 mg tablet 5 mg PO Q6H PRN (Reason: pain) 3 Days Qty: 14 0RF ciprofloxacin HCl 500 mg tablet 500 mg PO BID Qty: 10 0RF Continued multivitamin Tablet 1 tab PO DAILY tamsulosin 0.4 mg capsule 0.4 mg PO QHS Patient Comments: TAKE ONE CAPSULE BY MOUTH DAILY AT BEDTIME metamucil fiber bar See Rx Instructions PO DAILY Rx Instructions: BAR orally daily; BAR; pantoprazole 40 mg tablet,delayed release (DR/EC) 40 mg PO DAILY cholecalciferol (vitamin D3) [Vitamin D3] 50 mcg (2,000 unit) capsule 50 mcg PO DAILY zinc gluconate 50 mg tablet 50 mg PO DAILY torsemide 20 mg tablet 20 mg PO DAILY Qty: 90 3RF potassium chloride 10 mEq tablet extended release 20 meq PO BID Qty: 360 3RF Referrals / Follow Up: Cuco Mann MD [Med Staff - Active Staff] - Taylor Enrique MD [Primary Care Provider] - Disposition Disposition (needs filled in before D/C Order can be placed): Home, Self Care
--- NOTE | 2025-01-18 14:15 | OP.PCM_ITS ---
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: No Type of Anesthesia: General RN Documented Start/Stop Times: Operation Date: 01/18/25 12:10 Case Time Into Pre-Op 01/18/25 10:17 Out of Pre-Op 01/18/25 13:01 Anesthesia Start 01/18/25 13:04 Into Room 01/18/25 13:04 Procedure Start 01/18/25 13:27 Procedure Start Time: 13: Procedure Stop Time: 14:15 Select all DRAINS/GRAFTS/IMPLANTS that apply: Drains Drain details: ALBARO drain Estimated Blood Loss: 5cc Specimen collected: No Description of surgery: This is a 59-year-old male who has large bilateral hydroceles that are symptomatic he wishes to have them removed we talked about the risk of the procedure risk of bleeding infection recurrence and possible can come back we can leave a drain and help prevent recurrence. Patient was taken back to the operating room after induction of anesthesia he was intubated and placed supine on the table the scrotum was shaved prepped and draped in usual sterile fashion I made a incision in the midline raphae dissected down to the midline of both the hydroceles I then bluntly dissected both the hydroceles free from the scrotum I then incised the right hydrocele drained the fluid out and excised the edges of the hydrocele to the spermatic cord I then cauterized the edge of the spermatic cord to control bleeding and then ran the suture line all the way around the spermatic cord to control for bleeding with a 3-0 chromic stitch then the testicle was put back into the dartos pouch I then went to the left side opened up the hydrocele sac in the left side drained the fluid out and excised the hydrocele sac off the spermatic cord and the testicle and the cauterize the edges of the excision site and then ran the suture line with a 3-0 chromic around this we then irrigated the scrotum there is no signs of bleeding I would patient place a drain in the top of the scrotum that the drain fluid from both sides of the testicle. We then closed the scrotal incision in 3 layers dartos layer subcuticular layer and the skin layer with chromic stitches fluffs and drain was secured with scrotal support patient ascetic is currently being reversed and follow-up next week for drain removal Surgical Findings: Hydrocele sac removed from both testicles Complications Complications: No Admit VTE Documentation VTE Present on Admission: No VTE Mechan Device Prophylaxis: SCD's VTE Pharm Prophylaxis ordered?: No
--- NOTE | 2025-01-18 14:31 | PCM.POST.ANE ---
Anesthesia: Postop Eval I Current Vital Signs Temperature: 98.9 F Pulse Rate: 95 Blood Pressure: 131/71 Respiratory Rate: 16 Pulse Ox: 94 Oxygen Delivery Method: Room Air Assessment Airway patent: Yes Spontaneous unlabored respirations: Yes Mental status: Awake and Calm nausea: No Vomiting: No Anesthesia Complication: No Fluid Hydration Crystalloid volume administer (ml): 700 Total IV fluid infused: 700 Progress Note Anesthesia document: Postop Eval 1 completed: Yes
--- NOTE | 2025-01-18 19:13 | POSTOPAN2_ITS ---
Anesthesia Postop Eval I Sum Postop Eval Completion status Anesthesia document: Postop Eval 1 completed: Yes Anesthesia Postop Eval I Summary Anesthesia Postop Eval I Summary: Anesthesia Postop Eval I: Assessment Summary Airway patent Yes 01/18/25 14:32 SAVE [email or web address] Spontaneous unlabored Yes 01/18/25 14:32 SAVE ALL [email or web address] respirations Mental status Awake,Calm 01/18/25 14:32 SAVE ALL [email or web address] nausea No 01/18/25 14:32 SAVE ALL OPERATOR.SHOF Vomiting No 01/18/25 14:32 SAVE ALL OPERATOR.SHOF Anesthesia Postop Eval I: Fluid Summary Crystalloid volume administer 700 01/18/25 14:32 SAVE ALL OPERATOR.SHOF (ml) Colloids volume administered ( ml) Blood Product volume administered (ml) Total IV fluid infused 700 01/18/25 14:32 SAVE ALL OPERATOR.SHOF Anesthesia Postop Eval I: Summary Notes Anesthesia Complication No 01/18/25 14:32 SAVE ALL [email or web address].SHOF Anesthesia Complication Comment: Post-operative progress note Anesthesia: Postop Eval II Evaluation Mental status: Awake Pain Level: 2 nausea: No Vomiting: No
--- NOTE | 2025-01-18 19:13 | PCM.POSTANE2 ---
Anesthesia Postop Eval I Sum Postop Eval Completion status Anesthesia document: Postop Eval 1 completed: Yes Anesthesia Postop Eval I Summary Anesthesia Postop Eval I Summary: Anesthesia Postop Eval I: Assessment Summary Airway patent Yes 01/18/25 14:32 [email or web address] [email or web address] Spontaneous unlabored Yes 01/18/25 14:32 SATELLITE SPECIALIST.SHOF respirations Mental status Awake,Calm 01/18/25 14:32 SATELLITE [email or web address].SHOF nausea No 01/18/25 14:32 SATELLITE SPECIALIST.SHOF Vomiting No 01/18/25 14:32 SATELLITE SPECIALIST.SHOF Anesthesia Postop Eval I: Fluid Summary Crystalloid volume administer 700 01/18/25 14:32 SATELLITE [email or web address].SHOF (ml) Colloids volume administered ( ml) Blood Product volume administered (ml) Total IV fluid infused 700 01/18/25 14:32 SATELLITE [email or web address].SHOF Anesthesia Postop Eval I: Summary Notes Anesthesia Complication No 01/18/25 14:32 SATELLITE SPECIALIST.SHOF Anesthesia Complication Comment: Post-operative progress note Anesthesia: Postop Eval II Evaluation Mental status: Awake Pain Level: 2 nausea: No Vomiting: No
== END 2025-01-18 16:39 | disposition home or self-care (01) ==
LOC: SDC 10:14 → AC 10:16
PROVIDERS: PCP Internal Medicine; Referring Provider Urology; Visit Provider Urology
PROC: (CPT 55041; principal; 2025-01-18 11:55)
DX: N43.3 Hydrocele, unspecified (principal)
CPT/HCPCS: 55041; 00920

== ENCOUNTER 2025-02-09 12:08 | Emergency (ER) | payer MEDICARE, MEDICAID, SELFPAY ==
[2025-02-09 12:08] VITALS: BP 117/69; PULSE 122; RESP 20; TEMP 36.6; O2SAT 96
--- NOTE | 2025-02-09 12:27 | EX.ED.DYSGE1 ---
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 He was still able to eat and drink today and denies nausea or vomiting. 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 He thinks his last bowel movement was yesterday and he usually goes daily. No melena or hematochezia. He had surgery with Dr. Mann on January 18 for symptomatic large bilateral hydroceles and was discharged with a drain in to help prevent reoccurrence. The next day he was seen in the office for urinary retention and had a Carver catheter placed and was started on cefuroxime for some redness of the scrotum. He had the Carver removed a week later. The scrotum is still red and irritated so his primary care office prescribed Bactrim on 02/06. PFSH <SIOBHAN Foster - Last Filed: 02/09/25 14:53> [facility] Medical History Wears glasses Injury of head and neck Difficulty swallowing Difficulty chewing Non-smoker Shortness of breath on exertion History of echocardiogram Cardiology follow-up encounter Developmental disability Cervical spine disease Atrial septal defect Leg edema Leg swelling Barretts esophagus Congenital heart disease Essential hypertension Home Medications ?Medication ?Instructions ?Recorded ?Last Taken ?Type multivitamin 1 tab PO DAILY 10/04/19 01/17/25 History tamsulosin 0.4 mg capsule 0.4 mg PO QHS 02/11/23 01/17/25 History metamucil fiber bar See Rx Instructions PO DAILY 02/02/24 01/17/25 History torsemide 20 mg tablet 20 mg PO DAILY #90 tabs 05/10/24 01/17/25 Rx potassium chloride 10 mEq 20 meq (2 x 10 mEq) PO BID #360 06/30/24 01/17/25 Rx tablet,extended release tabs cholecalciferol (vitamin D3) 50 50 mcg PO DAILY 01/05/25 01/17/25 History mcg (2,000 unit) capsule (Vitamin D3) pantoprazole 40 mg tablet,delayed 40 mg PO DAILY 01/05/25 01/18/25 History release zinc gluconate 50 mg tablet 50 mg PO DAILY 01/05/25 01/17/25 History Allergy/AdvReac Type Severity Reaction Status Date / Time Penicillins AdvReac Severe SOB Verified 02/09/25 12:11 Family History Mother Hypertension Father Heart disease Sister CVA (cerebral vascular accident) Surgical History Hx of hernia repair History of open heart surgery Hx of eye surgery Hx of neck surgery Fusion of spine, cervical region Social History Smoking Status: Never smoker alcohol intake: never substance use type: does not use ROS <SIOBHAN Foster - Last Filed: 02/09/25 14:53> ROS ED ROS Narrative Constitutional: Negative for fever, chills, malaise. CVS: Negative for chest pain. Respiratory: Negative for shortness of breath, cough. GI: Positive for abdominal pain. No vomiting, diarrhea, constipation, melena, hematochezia. : Negative for dysuria. EXAM <SIOBHAN Foster - Last Filed: 02/09/25 14:53> Physical Exam Narrative Exam Narrative: CONST: Patient sitting in no acute distress. EYES: Normal inspection. NECK: Normal inspection. RESP: No respiratory distress, CTAB. CVS: Regular rate and rhythm, no murmur, no gallop. ABD: Soft and nontender, no guarding or rebound, nondistended. 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 There is no swelling or erythema of the perineum. There is no lymphangitic streaking. There is no necrosis or fluctuance or crepitus. SKIN: Color normal, no rash, warm, dry, intact. EXTREMITIES: Normal appearance, no pedal edema. NEURO: Alert and answering questions appropriately. PSYCH: Normal affect. Const Vital Signs: 02/09/25 12:08 02/09/25 14:08 02/09/25 14:39 Temperature 97.9 F 97.9 F Temperature Source Oral Pulse Rate 122 H 98 98 Respiratory Rate 20 H 20 H Blood Pressure 117/69 129/64 H 117/63 Blood Pressure Mean 85 85 81 Pulse Ox 96 97 97 <Dr. Yuli Leger MD - Last Filed: 02/09/25 16:07> Physical Exam Const Vital Signs: 02/09/25 12:08 02/09/25 14:08 02/09/25 14:39 Temperature 97.9 F 97.9 F Temperature Source Oral Pulse Rate 122 H 98 98 Respiratory Rate 20 H 20 H Blood Pressure 117/69 129/64 H 117/63 Blood Pressure Mean 85 85 81 Pulse Ox 96 97 97 MDM <SIOBHAN Foster - Last Filed: 02/09/25 14:53> [facility] Narrative Medical decision making narrative: History gathered from: Patient and her sisterLANE Differential includes but not limited to gastroenteritis, diverticulitis, cholecystitis, appendicitis 59-year-old male presents with periumbilical and abdominal pain that started this morning. He also then developed a mild headache. He is awake alert no distress. He is tachycardic at 122 with otherwise normal vital signs. Exam is notable for tachycardia without murmur and periumbilical tenderness without peritoneal signs. He has a nonfocal neurological exam. He was given IV fluids and Toradol since he did not want narcotics. WBC 17.5. Sodium 132, glucose 164, gap 17 consistent with probable dehydration. Normal LFTs and lipase. He cannot provide a urine sample for testing but dates he is urinating and does not want a straight cath. CT shows nondistended fluid-filled bowel loops suggesting diffuse enteritis. There is no other acute findings. This could explain his pain and I recommended Tylenol or Motrin at home. He also should continue the Bactrim he is on for his scrotal cellulitis. At this time there is no signs of abscess or Luh's gangrene. I discussed return precautions and he was discharged in stable condition. Patient seen and evaluated with JUANY. I personally interviewed and examined the patient. I was involved in all aspects of patient's orders, interpretation of results, and treatment. In brief patient is a 59-year-old male presenting the emergency department for periumbilical abdominal pain. He is also endorsing mild headache. The headache started gradually and started after the abdominal pain. States it is across to his forehead. Not the worst headache of his life. No vision changes. No neurodeficits. No nausea, vomiting, diarrhea, dysuria or hematuria. Labs and imaging ordered due to his tachycardia. Fluid bolus started. Given toradol for pain control. CBC with leukocytosis of 17 and a normal hemoglobin. CMP with mild hyperglycemia of 164, very mild anion gap of 17. Lipase within normal limits. Does appear to be mildly dehydrated on labs. He is already getting a fluid bolus. Heart rate improved after the fluids to 98. CT shows fatty liver with stable 3 cm hemangioma in the left lobe. Simple cortical cysts in both kidneys, no specific follow-up needed. Nondistended fluid-filled bowel loops suggest diffuse enteritis. Nonspecific induration of the mesenteric fat. No free intraperitoneal fluid, air, or suspicious adenopathy. Patient was unable to provide a urine sample and does not want to be cathed. Discussed possibility of UTI, however low concern. Sister and patient are okay with not having urine done and will follow up if he develops urinary symptoms. Patient discharged from the Emergency Department. I do not feel that the patient's evaluation reveals any acute reason for admission at this time. I instructed them to either follow-up with their primary care physician or promptly return to the Emergency Department for reevaluation should symptoms worsen or new symptoms develop. I explained what symptoms would indicate the need to return to the emergency department. Shared decision making was used. The patient voiced understanding of the treatment plan and is agreeable with it. Impression: 1. enteritis 2. abdominal pain 3. leukocytosis Lab Data Labs: Laboratory Results - last 24 hr 02/09/25 02/09/25 13:03 13:12 WBC 17.5 H RBC 4.63 Hgb 13.4 Hct 39.0 L MCV 84.2 MCH 28.9 MCHC 34.4 RDW Std Deviation 42.8 RDW Coeff of Sony 13.9 Plt Count 431 MPV 9.2 Immature Gran % (Auto) 0.700 Neut % (Auto) 91.8 H Lymph % (Auto) 2.1 L Bay % (Auto) 5.2 Eos % (Auto) 0.0 Baso % (Auto) 0.2 Absolute Neuts (auto) 16.1 H Absolute Lymphs (auto) 0.37 L Nucleated RBC % 0 Sodium 132 L Potassium 3.7 Chloride 95 L Carbon Dioxide 20.1 L Anion Gap 17 H BUN 14 Creatinine 1.13 Est GFR (MDRD) Non-Af 74 BUN/Creatinine Ratio 12.0 Glucose 164 H Calcium 8.6 Total Bilirubin 0.25 AST 23 ALT 27 Alkaline Phosphatase 97 Total Protein 6.7 Albumin 3.7 Globulin 2.9 Albumin/Globulin Ratio 1.3 Lipase 33 Urine Color Cancelled Urine Clarity Cancelled Urine pH Cancelled Ur Specific [place] Cancelled U Specif Grav (Refrac) Cancelled Urine Protein Cancelled Urine Glucose (UA) Cancelled Urine Ketones Cancelled Urine Occult Blood Cancelled Urine Nitrite Cancelled Urine Bilirubin Cancelled Urine Urobilinogen Cancelled Ur Leukocyte Esterase Cancelled Urine RBC Cancelled Urine WBC Cancelled Ur Squamous Epith Cells Cancelled Ur Transition Epith Cell Cancelled Ur Renal Epithelial Cell Cancelled Calcium Oxalate Crystal Cancelled Uric Acid Crystals Cancelled Triple Phos Crystals Cancelled Other Crystals Cancelled Amorphous Sediment Cancelled Urine Bacteria Cancelled Hyaline Casts Cancelled Fine Granular Casts Cancelled Coarse Granular Casts Cancelled Waxy Casts Cancelled RBC Casts Cancelled WBC Casts Cancelled Urine Mucus Cancelled Urine Trichomonas Cancelled Urine Yeast Cancelled Radiography Diagnostic Testing: Clinical Impression(s) from Imaging Studies Abdomen/Pelvis CT 02/09/25 12:34 IMPRESSION: Fatty liver with stable 3 cm hemangioma in the left lobe. Simple cortical cysts in both kidneys, no specific follow-up needed. Nondistended fluid-filled bowel loops suggest diffuse enteritis. Nonspecific induration of the mesenteric fat No free intraperitoneal fluid, air, or suspicious adenopathy Reading Location: [id number] <Dr. Yuli Leger MD - Last Filed: 02/09/25 16:07> [facility] Narrative Medical decision making narrative: Patient seen and evaluated with JUANY. I personally interviewed and examined the patient. I was involved in all aspects of patient's orders, interpretation of results, and treatment. In brief patient is a 59-year-old male presenting the emergency department for periumbilical abdominal pain. He is also endorsing mild headache. The headache started gradually and started after the abdominal pain. States it is across to his forehead. Not the worst headache of his life. No vision changes. No neurodeficits. No nausea, vomiting, diarrhea, dysuria or hematuria. Labs and imaging ordered due to his tachycardia. Fluid bolus started. Given toradol for pain control. CBC with leukocytosis of 17 and a normal hemoglobin. CMP with mild hyperglycemia of 164, very mild anion gap of 17. Lipase within normal limits. Does appear to be mildly dehydrated on labs. He is already getting a fluid bolus. Heart rate improved after the fluids to 98. CT shows fatty liver with stable 3 cm hemangioma in the left lobe. Simple cortical cysts in both kidneys, no specific follow-up needed. Nondistended fluid-filled bowel loops suggest diffuse enteritis. Nonspecific induration of the mesenteric fat. No free intraperitoneal fluid, air, or suspicious adenopathy. Patient was unable to provide a urine sample and does not want to be cathed. Discussed possibility of UTI, however low concern. Sister and patient are okay with not having urine done and will follow up if he develops urinary symptoms. Patient discharged from the Emergency Department. I do not feel that the patient's evaluation reveals any acute reason for admission at this time. I instructed them to either follow-up with their primary care physician or promptly return to the Emergency Department for reevaluation should symptoms worsen or new symptoms develop. I explained what symptoms would indicate the need to return to the emergency department. Shared decision making was used. The patient voiced understanding of the treatment plan and is agreeable with it. Impression: 1. enteritis 2. abdominal pain 3. leukocytosis History & Record Review Discussion w/independent historian: Patient and Family Lab Data Attestation: I reviewed the patient's lab results. Labs: Laboratory Results - last 24 hr 02/09/25 02/09/25 13:03 13:12 WBC 17.5 H RBC 4.63 Hgb 13.4 Hct 39.0 L MCV 84.2 MCH 28.9 MCHC 34.4 RDW Std Deviation 42.8 RDW Coeff of Sony 13.9 Plt Count 431 MPV 9.2 Immature Gran % (Auto) 0.700 Neut % (Auto) 91.8 H Lymph % (Auto) 2.1 L Bay % (Auto) 5.2 Eos % (Auto) 0.0 Baso % (Auto) 0.2 Absolute Neuts (auto) 16.1 H Absolute Lymphs (auto) 0.37 L Nucleated RBC % 0 Sodium 132 L Potassium 3.7 Chloride 95 L Carbon Dioxide 20.1 L Anion Gap 17 H BUN 14 Creatinine 1.13 Est GFR (MDRD) Non-Af 74 BUN/Creatinine Ratio 12.0 Glucose 164 H Calcium 8.6 Total Bilirubin 0.25 AST 23 ALT 27 Alkaline Phosphatase 97 Total Protein 6.7 Albumin 3.7 Globulin 2.9 Albumin/Globulin Ratio 1.3 Lipase 33 Urine Color Cancelled Urine Clarity Cancelled Urine pH Cancelled Ur Specific [place] Cancelled U Specif Grav (Refrac) Cancelled Urine Protein Cancelled Urine Glucose (UA) Cancelled Urine Ketones Cancelled Urine Occult Blood Cancelled Urine Nitrite Cancelled Urine Bilirubin Cancelled Urine Urobilinogen Cancelled Ur Leukocyte Esterase Cancelled Urine RBC Cancelled Urine WBC Cancelled Ur Squamous Epith Cells Cancelled Ur Transition Epith Cell Cancelled Ur Renal Epithelial Cell Cancelled Calcium Oxalate Crystal Cancelled Uric Acid Crystals Cancelled Triple Phos Crystals Cancelled Other Crystals Cancelled Amorphous Sediment Cancelled Urine Bacteria Cancelled Hyaline Casts Cancelled Fine Granular Casts Cancelled Coarse Granular Casts Cancelled Waxy Casts Cancelled RBC Casts Cancelled WBC Casts Cancelled Urine Mucus Cancelled Urine Trichomonas Cancelled Urine Yeast Cancelled Radiography Diagnostic Testing: Clinical Impression(s) from Imaging Studies Abdomen/Pelvis CT 02/09/25 12:34 IMPRESSION: Fatty liver with stable 3 cm hemangioma in the left lobe. Simple cortical cysts in both kidneys, no specific follow-up needed. Nondistended fluid-filled bowel loops suggest diffuse enteritis. Nonspecific induration of the mesenteric fat No free intraperitoneal fluid, air, or suspicious adenopathy Reading Location: [facility] Discharge Plan Triage Chief Complaint: Abd Pain ED Midlevel Provider: Lizzie Mcpherson ED Provider: Yuli Leger Dx/Rx/DC Orders Clinical Impression: Abdominal pain, Enteritis, Dehydration Instructions: Abdominal Pain Prescriptions: No Action multivitamin Tablet 1 tab PO DAILY tamsulosin 0.4 mg capsule 0.4 mg PO QHS Patient Comments: TAKE ONE CAPSULE BY MOUTH DAILY AT BEDTIME metamucil fiber bar See Rx Instructions PO DAILY Rx Instructions: BAR orally daily; BAR; pantoprazole 40 mg tablet,delayed release (DR/EC) 40 mg PO DAILY cholecalciferol (vitamin D3) [Vitamin D3] 50 mcg (2,000 unit) capsule 50 mcg PO DAILY zinc gluconate 50 mg tablet 50 mg PO DAILY torsemide 20 mg tablet 20 mg PO DAILY Qty: 90 3RF potassium chloride 10 mEq tablet extended release 20 meq PO BID Qty: 360 3RF Primary Care Provider: Taylor Enrique Referrals: Taylor Enrique MD [Primary Care Provider] - Activity Restrictions/Additional Instructions: Your CAT scan showed inflammation of your colon which can cause pain. I recommend Tylenol every 6 hours as needed and drinking more clear fluids. If symptoms worsen come back to the ER. Print Language: Upper Sorbian Disposition Disposition: Home, Self Care Discharge Date/Time: 02/09/25 14:51
--- NOTE | 2025-02-09 12:34 | CT_ITS ---
PROCEDURE: ABDOMEN/PELVIS W IV CONT ONLY 02/09/2025 REASON FOR EXAM: Diffuse abdominal pain TECHNIQUE: ABDOMEN/PELVIS W IV CONT ONLY Coronal and Sagittal reconstruction series were provided. CONTRAST: Isovue 370 VOLUME: 100 mL One or more dose reduction techniques were used (e.g., Automated exposure control, adjustment of the mA and/or kV according to patient size, use of iterative reconstruction technique. RADIATION DOSE SUMMARY: CTDlvol: 25.89 mGy DLP: 623.06 mGycm COMPARISON: 2019 FINDINGS: Lung bases: Chronic interstitial changes with nonspecific pleural thickening in the hemithoraces. Mild dependent atelectasis Liver: Fatty infiltration of the liver with a stable 3 cm hemangioma in the left lobe. Gallbladder: Unremarkable Spleen: Normal size. Pancreas: Normal size without evidence of mass surrounding inflammation or ductal dilation. Adrenals: Unremarkable Kidneys: No obstructive uropathy or suspicious solid renal lesion, there are simple cortical cysts. Bladder: Unremarkable Bowel: Nondistended fluid-filled bowel loops suggest diffuse enteritis. Retained stool in the colon. Appendix: Not visualized Lymph nodes: Unremarkable. Vasculature: The abdominal aorta and IVC are normal. Peritoneum / Retroperitoneum: No free fluid or air. There is nonspecific induration of the mesenteric fat. Bones: Degenerative changes of the spine. CT/Abdomen/Pelvis W IV Cont ONLY IMPRESSION: Fatty liver with stable 3 cm hemangioma in the left lobe. Simple cortical cysts in both kidneys, no specific follow-up needed. Nondistended fluid-filled bowel loops suggest diffuse enteritis. Nonspecific induration of the mesenteric fat No free intraperitoneal fluid, air, or suspicious adenopathy Reading Location: [id number]
[2025-02-09 13:14] LABS: Hematocrit 39.0 % (40-54); Hemoglobin 13.4 g/dL (13.0-16.5); Immature Granulocytes Count 0.120 X10^3/uL (0.0-0.0); Mean Corp Hgb Conc 34.4 g/dL (32-36); Mean Corpuscular Volume 84.2 fL (80-94); Mean Platelet Vol. 9.2 fl (6.2-12.0); NRBC Flagged by Analyzer 0 % (0-5); POSITIVE DIFFERENTIAL YES; Platelet Count 431 K/mm3 (150-450); RBC Distribution Width CV 13.9 % (11.6-14.6); RBC Distribution Width SD 42.8 fl (35.1-43.9); Red Blood Count 4.63 M/mm3 (4.6-6.2); White Blood Count 17.5 K/mm3 (4.4-11.0)
[2025-02-09] MEDS: 0.9% Normal Saline (1000mL) 1,000 ML 999 ML IV (13:25)
[2025-02-09 14:08] VITALS: BP 129/64; PULSE 98; O2SAT 97
[2025-02-09 14:27] LABS: AST(SGOT) 23 U/L (<=37); Alanine Aminotransfer ALT/SGPT 27 U/L (<=46); Albumin, Serum 3.7 g/dL (3.4-4.8); Alkaline Phosphatase 97 U/L (40-129); Anion Gap 17 (5-15); BUN 14 mg/dL (4-19); BUN/Creat Ratio 12.0 RATIO (10-20); Calcium,Total 8.6 mg/dL (7.6-11.0); Carbon Dioxide 20.1 mmol/L (21.0-32.0); Chloride 95 mmol/L (98-108); Globulin 2.9 g/dL (2.2-4.2); Glucose 164 mg/dL (70-99); Lipase 33 U/L (13-75); Potassium 3.7 mmol/L (3.3-5.1)
[2025-02-09 14:39] VITALS: BP 117/63; PULSE 98; RESP 20; TEMP 36.6; O2SAT 97
== END 2025-02-09 14:51 | disposition home or self-care (01) ==
PROVIDERS: Physician Assistant; Emergency Provider Student in an Organized Health Care Education/Training Program; PCP Internal Medicine; Referring Provider Student in an Organized Health Care Education/Training Program; Visit Provider Student in an Organized Health Care Education/Training Program
DX: K52.9 Noninfective gastroenteritis and colitis, unspecified (principal); I10 Essential (primary) hypertension; E86.0 Dehydration; D72.829 Elevated white blood cell count, unspecified; R10.33 Periumbilical pain
CPT/HCPCS: 74177; 80053; 83690; 85025; 96361; 96374; 99282; Q9967; A4216

== ENCOUNTER 2025-02-16 13:30 | Outpatient (RCR) | payer MEDICARE, MEDICAID, SELFPAY ==
[2025-02-16 13:37] VITALS: BP 138/84; PULSE 102; RESP 18; TEMP 35.8
--- NOTE | 2025-02-16 14:26 | PCM.WC.PN ---
History of Present Illness Date of Service: 02/16/25 Chief Complaint: Bilateral lower extremity edema History of Wound: KENTON RYAN, is a 59 M who presents today for evaluation of significant lower extremity edema. He is known to me from the vascular surgery office as well as prior visits here. Last time he was here, he was treated with a few months of compression wraps to get his edema controlled to the point he could apply his zippered compression stockings on his own. He has been wearing his zippered 20-30mmHg compression stockings daily. He report he has been using his lymphedema pumps twice daily. He states he has been elevating his legs at all times of rest. He generally eats pre-made meals with unclear sodium content; but otherwise, reports a fair diet focused on protein and vegetables and stays away from junk food. He denies any other associated symptoms with his edema such as chest pain, increased SOB with activity or lying down. Recall that he has tried CircAid's in the past and he has limited left upper extremity mobility which makes these difficult to put on. At present, no wounds or weeping areas; however, he does have intermittent episodes of fluid-filled blisters which rupture and lead to wounds along with weeping. He does have skin thickening, skin flaking/dry skin, and some chronic red discoloration. Since his last visit, [facility] has been in place and have been applying the 3M wraps for compression twice weekly. This has helped significantly in the management of his edema overally. 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 Subjective Subjective 3M wraps are continuing to work well to manage his edema; [facility] has continued to see him to apply. His sister accompanied to his appointment today and she reports they are looking into SNF/LTC placement but do not anticipate that will be in place for a few weeks. No new concerns. Objective Data Objective Data Vital Signs: Vital Signs Temp Pulse Resp BP O2 Del Method 96.5 F L 102 H 18 138/84 H Room Air 02/16/25 13:37 02/16/25 13:37 02/16/25 13:37 02/16/25 13:37 02/16/25 13:37 Oxygen Delivery Method Room Air Charges/Coding Visit Charges Office Visits / Consults: 63390 OV L3 Est 20min Physical Exam Narrative Const General: cooperative, comfortable and no acute distress Orientation: alert, awake and oriented x3 HENMT Head: normocephalic and atraumatic Ears: hearing grossly normal bilaterally and external ears normal Nose: external nose normal Eyes General: appearance normal, both eyes and all related structures EOM: EOM intact bilaterally Neck Neck: normal visual inspection and trachea midline Resp Effort & Inspection: normal respiratory effort, able to speak in complete sentences, no grunting, not labored, no respiratory distress and no retractions Auscultation: clear to auscultation bilaterally Cardio Rate: regular rate Rhythm: regular rhythm Skin General: no rashes or lesions noted and dry skin Trauma: no lacerations or abrasions Wounds: no wounds Neuro General: moves all extremities and no focal motor deficits Cranial Nerves: CN's II-XI intact bilaterally Speech: speech normal Extremities Lower Extremity Edema: Right Ankle: 25.5 cm Right Calf: 34 cm Left Ankle: 27.5 cm Left Calf: 34.5 cm Psych Mental Status: mental status grossly normal Mood: congruent mood Affect: normal affect Speech and Movement: speech and movement normal Attitude: cooperative Debridement Note Debridement Note No debridement was completed: No debridement was completed today Post-Debridement Measurements and Additional Note: Post-Debridement Measurements/Treatment SHAYE - Nurse 1 - General Ulcer Assessment Start: 02/16/25 13:33 Freq: Status: Active Protocol: VICENTE Activity Type Activity Date Activity User E-sign Co-sign Detail Recorded Client Recorded Date Recorded By Document 02/16/25 13:37 [email or web address] [id number] 02/16/25 13:39 [email or web address] 02/16/25 13:37 - Today's Visit Information Type of service Follow-up Visit (Physician/[facility] ) Arrival Mode Ambulatory Accompanied by sister Patient Identification Verified (Name & Yes ) Vital Signs Temperature (97.8 F-99.1 F) 96.5 F L Temperature Source Temporal Pulse Rate (60-100) 102 H Pulse Location Monitor Respiratory Rate (12-18) 18 Respiratory rate source Observation Oxygen Delivery Method Room Air Blood Pressure (90/60-120/80) 138/84 H Blood Pressure Mean (mm Hg) 102 Source Monitor Position Semi-Fowlers Blood Pressure Location Left Arm History Since Last Visit- (Skip if this is Patient's initial visit) Have you changed medications since your No last visit? Any new allergies or adverse reactions No Had a fall/change in ADL's that may No increase risk of falls Signs or symptoms of abuse and/or No neglect since last visit Have you been in the hospital since your No last visit? Has dressing in place as prescribed Yes Has compression in place as prescribed Yes Has offloadiing in place as prescribed N/A Experienced any changes in pain level or No management Left Footwear Regular Shoe Right Footwear Regular Shoe Pain Scale: 0-10 Numeric Is Patient Pain Free? Yes - Nurse 1 - General Ulcer Measurement Start: 02/16/25 13:33 Freq: Status: Active Protocol: Activity Type Activity Date Activity User E-sign Co-sign Detail Recorded Client Recorded Date Recorded By Document 02/16/25 13:37 [id number] 02/16/25 13:39 02/16/25 13:37 Wound Center Nurse 1 Right Calf (cm) 34 Right Ankle (cm) 25.5 Left Calf (cm) 34.5 Left Ankle (cm) 27.5 - Nurse 2 - General Ulcer CM Notes Start: 02/16/25 13:33 Freq: Status: Active Protocol: Activity Type Activity Date Activity User E-sign Co-sign Detail Recorded Client Recorded Date Recorded By Document 02/16/25 13:49 [id number] 02/16/25 13:49 02/16/25 13:49 Pain Scale: 0-10 Numeric Is Patient Pain Free? Yes - Nurse 3 - General Ulcer D/C NN Start: 02/16/25 13:33 Freq: Status: Active Protocol: Activity Type Activity Date Activity User E-sign Co-sign Detail Recorded Client Recorded Date Recorded By Document 02/16/25 14:03 [id number] 02/16/25 14:04 [email or web address] 02/16/25 14:03 Wound Care Center Nurse 3 BLE -Multi-Layered Wrap Application Multi-Layer Comp - Bilat ($ ) -Multi-Layer Compression Bilat (Qty 1 applied) Pain Scale: 0-10 Numeric Is Patient Pain Free? Yes - Visit Discharge Discharge Condition Stable Ambulatory Status Ambulatory Transportation Private Auto Accompanied by sister Medication Reconcilliation completed & No provided to patient/care provider Clinical Summary of Care Provided Yes Assessment/Plan Assessment/Plan (1) Lymphedema: CODE(S): I89.0 - Lymphedema, not elsewhere classified PLAN: Plan Will continue with 3M wraps changed biweekly for management of his bilateral lower extremity edema. I advise elevation of his legs at or above the level of his heart at all times of rest, periodic exercise (ambulation or calf pumps) throughout the day with avoidance of prolonged idle sitting/standing, and use of his lymphedema pumps 2-3 times daily for 60 minutes at a time if possible. I also recommend applying lotion such as Eucerin with Urea nightly to the bilateral lower legs and feet. C will continue to provide the wrap changes on a weekly basis. He will return to see me in 4 weeks, sooner as needed.
== END 2025-02-26 23:59 | disposition home or self-care (01) ==
LOC: WC 13:30
PROVIDERS: PCP Internal Medicine; Referring Provider Physician Assistant; Visit Provider Physician Assistant
DX: I89.0 Lymphedema, not elsewhere classified (principal); I10 Essential (primary) hypertension; Z79.899 Other long term (current) drug therapy
CPT/HCPCS: 29581; 99213; G0463

== ENCOUNTER 2025-03-16 13:05 | Outpatient (RCR) | payer MEDICARE, MEDICAID, SELFPAY ==
[2025-03-16 13:08] VITALS: BP 128/77; PULSE 108; RESP 18; TEMP 36.2
--- NOTE | 2025-03-16 16:25 | PCM.WC.PN ---
History of Present Illness Date of Service: 03/16/25 Chief Complaint: Bilateral lower extremity edema History of Wound: KENTON RYAN, is a 59 M who presents today for evaluation of significant lower extremity edema. He is known to me from the vascular surgery office as well as prior visits here. Last time he was here, he was treated with a few months of compression wraps to get his edema controlled to the point he could apply his zippered compression stockings on his own. He has been wearing his zippered 20-30mmHg compression stockings daily. He report he has been using his lymphedema pumps twice daily. He states he has been elevating his legs at all times of rest. He generally eats pre-made meals with unclear sodium content; but otherwise, reports a fair diet focused on protein and vegetables and stays away from "junk food". He denies any other associated symptoms with his edema such as chest pain, increased SOB with activity or lying down. Recall that he has tried CircAid's in the past and he has limited left upper extremity mobility which makes these difficult to put on. At present, no wounds or weeping areas; however, he does have intermittent episodes of fluid-filled blisters which rupture and lead to wounds along with weeping. He does have skin thickening, skin flaking/dry skin, and some chronic red discoloration. Since his last visit, [facility] has been in place and have been applying the 3M wraps for compression twice weekly. This has helped significantly in the management of his edema overally. 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 Subjective Subjective 3M wraps are continuing to work well to manage his edema; [facility] has continued to see him to apply. He did remove his wraps last night and has had no compression overnight or today so his swelling is worse at his visit today. No new concerns. Objective Data Objective Data Vital Signs: Vital Signs Temp Pulse Resp BP O2 Del Method 97.2 F L 108 H 18 128/77 H Room Air 03/16/25 13:08 03/16/25 13:08 03/16/25 13:08 03/16/25 13:08 03/16/25 13:08 Oxygen Delivery Method Room Air Charges/Coding Visit Charges Office Visits / Consults: [id number] OV L3 Est 20min Physical Exam Narrative Const General: cooperative, comfortable and no acute distress Orientation: alert, awake and oriented x3 HENMT Head: normocephalic and atraumatic Ears: hearing grossly normal bilaterally and external ears normal Nose: external nose normal Eyes General: appearance normal, both eyes and all related structures EOM: EOM intact bilaterally Neck Neck: normal visual inspection and trachea midline Resp Effort & Inspection: normal respiratory effort, able to speak in complete sentences, no grunting, not labored, no respiratory distress and no retractions Auscultation: clear to auscultation bilaterally Cardio Rate: regular rate Rhythm: regular rhythm Skin General: no rashes or lesions noted and dry skin Trauma: no lacerations or abrasions Wounds: no wounds Neuro General: moves all extremities and no focal motor deficits Cranial Nerves: CN's II-XI intact bilaterally Speech: speech normal Extremities Lower Extremity Edema: Right Ankle: 26.5 cm Right Calf: 35 cm Left Ankle: 27 cm Left Calf: 35 cm Psych Mental Status: mental status grossly normal Mood: congruent mood Affect: normal affect Speech and Movement: speech and movement normal Attitude: cooperative Debridement Note Debridement Note No debridement was completed: No debridement was completed today Post-Debridement Measurements and Additional Note: Post-Debridement Measurements/Treatment SHAYE - Nurse 1 - General Ulcer Assessment Start: 03/16/25 13:07 Freq: Status: Active Protocol: VICENTE Activity Type Activity Date Activity User E-sign Co-sign Detail Recorded Client Recorded Date Recorded By Document 03/16/25 13:08 [email or web address] [id number] 03/16/25 13:13 03/16/25 13:08 - Today's Visit Information Type of service Initial Visit Arrival Mode Ambulatory Accompanied by dad Patient Identification Verified (Name & Yes ) Vital Signs Temperature (97.8 F-99.1 F) 97.2 F L Temperature Source Temporal Pulse Rate (60-100) 108 H Pulse Location Monitor Respiratory Rate (12-18) 18 Respiratory rate source Observation Oxygen Delivery Method Room Air Blood Pressure (90/60-120/80) 128/77 H Blood Pressure Mean (mm Hg) 94 Source Monitor Position Semi-Fowlers Blood Pressure Location Left Arm History Since Last Visit- (Skip if this is Patient's initial visit) Have you changed medications since your No last visit? Any new allergies or adverse reactions No Had a fall/change in ADL's that may No increase risk of falls Signs or symptoms of abuse and/or No neglect since last visit Have you been in the hospital since your No last visit? Has dressing in place as prescribed Yes Has compression in place as prescribed No Has offloadiing in place as prescribed N/A Experienced any changes in pain level or No management Left Footwear Regular Shoe Right Footwear Regular Shoe Pain Scale: 0-10 Numeric Is Patient Pain Free? Yes - Nurse 1 - General Ulcer Measurement Start: 03/16/25 13:07 Freq: Status: Active Protocol: Activity Type Activity Date Activity User E-sign Co-sign Detail Recorded Client Recorded Date Recorded By Document 03/16/25 13:08 [id number] 03/16/25 13:13 03/16/25 13:08 Wound Center Nurse 1 Right Calf (cm) 35 Right Ankle (cm) 26.5 Left Calf (cm) 35 Left Ankle (cm) 27 - Nurse 2 - General Ulcer CM Notes Start: 03/16/25 13:07 Freq: Status: Active Protocol: Activity Type Activity Date Activity User E-sign Co-sign Detail Recorded Client Recorded Date Recorded By Document 03/16/25 13:37 [id number] 03/16/25 13:37 03/16/25 13:37 Pain Scale: 0-10 Numeric Is Patient Pain Free? Yes - Nurse 3 - General Ulcer D/C NN Start: 03/16/25 13:07 Freq: Status: Active Protocol: Activity Type Activity Date Activity User E-sign Co-sign Detail Recorded Client Recorded Date Recorded By Document 03/16/25 13:38 [id number] 03/16/25 13:39 03/16/25 13:38 Wound Care Center Nurse 3 BLE -Multi-Layered Wrap Application Multi-Layer Comp - Bilat ($ ) -Multi-Layer Compression Bilat (Qty 1 applied) Pain Scale: 0-10 Numeric Is Patient Pain Free? Yes - Visit Discharge Discharge Condition Stable Ambulatory Status Ambulatory Transportation Private Auto Medication Reconcilliation completed & No provided to patient/care provider Clinical Summary of Care Provided Yes Assessment/Plan Assessment/Plan (1) Lymphedema: CODE(S): I89.0 - Lymphedema, not elsewhere classified PLAN: Plan Will continue with 3M wraps changed twice weekly for management of his bilateral lower extremity edema. I advise elevation of his legs at or above the level of his heart at all times of rest, periodic exercise (ambulation or calf pumps) throughout the day with avoidance of prolonged idle sitting/standing, and use of his lymphedema pumps 2-3 times daily for 60 minutes at a time if possible. I also recommend applying lotion such as Eucerin with Urea nightly to the bilateral lower legs and feet. [facility] will continue to provide the wrap changes on a weekly basis. He will return to see me in 4 weeks, sooner as needed.
--- NOTE | 2025-03-17 09:39 | WC ---
PHOTO-BLE EDEMA 03/16/25
== END 2025-03-28 23:59 | disposition home or self-care (01) ==
LOC: WC 13:05
PROVIDERS: PCP Internal Medicine; Referring Provider Physician Assistant; Visit Provider Physician Assistant
DX: I89.0 Lymphedema, not elsewhere classified (principal); R60.0 Localized edema; I10 Essential (primary) hypertension
CPT/HCPCS: 29581; 99213; G0463

== ENCOUNTER 2025-04-13 13:03 | Outpatient (RCR) | payer MEDICARE, MEDICAID, SELFPAY ==
[2025-04-13 13:19] VITALS: BP 139/93; PULSE 107; RESP 15; TEMP 35.8
--- NOTE | 2025-04-13 13:49 | PCM.WC.PN ---
History of Present Illness Date of Service: 04/13/25 Chief Complaint: Bilateral lower extremity edema History of Wound: KENTON RYAN, is a 59 M who presents today for evaluation of significant lower extremity edema. He is known to me from the vascular surgery office as well as prior visits here. Last time he was here, he was treated with a few months of compression wraps to get his edema controlled to the point he could apply his zippered compression stockings on his own. He has been wearing his zippered 20-30mmHg compression stockings daily. He report he has been using his lymphedema pumps twice daily. He states he has been elevating his legs at all times of rest. He generally eats pre-made meals with unclear sodium content; but otherwise, reports a fair diet focused on protein and vegetables and stays away from "junk food". He denies any other associated symptoms with his edema such as chest pain, increased SOB with activity or lying down. Recall that he has tried CircAid's in the past and he has limited left upper extremity mobility which makes these difficult to put on. At present, no wounds or weeping areas; however, he does have intermittent episodes of fluid-filled blisters which rupture and lead to wounds along with weeping. He does have skin thickening, skin flaking/dry skin, and some chronic red discoloration. Since his last visit, [facility] has been in place and have been applying the 3M wraps for compression twice weekly. This has helped significantly in the management of his edema overally. 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 Subjective Subjective 3M wraps are continuing to work well to manage his edema; [facility] has continued to see him to apply and he reports this is going well. He again did remove his wraps last night to shower and has had no compression overnight or today so his swelling is worse at his visit today. No new concerns. Objective Data Objective Data Vital Signs: Vital Signs Temp Pulse Resp BP 96.5 F L 107 H 15 139/93 H 04/13/25 13:19 04/13/25 13:19 04/13/25 13:19 04/13/25 13:19 Charges/Coding Visit Charges Office Visits / Consults: 16074 OV L3 Est 20min Physical Exam Narrative Const General: cooperative, comfortable and no acute distress Orientation: alert, awake and oriented x3 HENMT Head: normocephalic and atraumatic Ears: hearing grossly normal bilaterally and external ears normal Nose: external nose normal Eyes General: appearance normal, both eyes and all related structures EOM: EOM intact bilaterally Neck Neck: normal visual inspection and trachea midline Resp Effort & Inspection: normal respiratory effort, able to speak in complete sentences, no grunting, not labored, no respiratory distress and no retractions Auscultation: clear to auscultation bilaterally Cardio Rate: regular rate Rhythm: regular rhythm Skin General: no rashes or lesions noted and dry skin Trauma: no lacerations or abrasions Wounds: no wounds Neuro General: moves all extremities and no focal motor deficits Cranial Nerves: CN's II-XI intact bilaterally Speech: speech normal Extremities Lower Extremity Edema: Right Ankle: 26.5 cm Right Calf: 30 cm Left Ankle: 30 cm Left Calf: 35 cm Psych Mental Status: mental status grossly normal Mood: congruent mood Affect: normal affect Speech and Movement: speech and movement normal Attitude: cooperative Debridement Note Debridement Note No debridement was completed: No debridement was completed today Post-Debridement Measurements and Additional Note: Post-Debridement Measurements/Treatment WC - Nurse 1 - General Ulcer Assessment Start: 04/13/25 13:18 Freq: Status: Active Protocol: VICENTE Activity Type Activity Date Activity User E-sign Co-sign Detail Recorded Client Recorded Date Recorded By Document 04/13/25 13:19 ML [id number] 04/13/25 13:20 ML 04/13/25 13:19 WC - Today's Visit Information Type of service Follow-up Visit (Physician/NURSE CASE MANAGEMENT ) Arrival Mode Ambulatory,Cane Transfer Assistance None Patient Identification Verified (Name & Yes ) Patient Requires Transmission-Based No Precautions Vital Signs Temperature (97.8 F-99.1 F) 96.5 F L Temperature Source Temporal Pulse Rate (60-100) 107 H Pulse Location Monitor Respiratory Rate (12-18) 15 Respiratory rate source Observation Blood Pressure (90/60-120/80) 139/93 H Blood Pressure Mean (mm Hg) 108 Source Monitor Position Sitting Blood Pressure Location Left Forearm History Since Last Visit- (Skip if this is Patient's initial visit) Have you changed medications since your No last visit? Any new allergies or adverse reactions No Had a fall/change in ADL's that may No increase risk of falls Signs or symptoms of abuse and/or No neglect since last visit Have you been in the hospital since your No last visit? Has dressing in place as prescribed No Has compression in place as prescribed No Has offloadiing in place as prescribed N/A Experienced any changes in pain level or No management Pain Scale: 0-10 Numeric Is Patient Pain Free? Yes WC - Nurse 1 - General Ulcer Measurement Start: 04/13/25 13:18 Freq: Status: Active Protocol: Activity Type Activity Date Activity User E-sign Co-sign Detail Recorded Client Recorded Date Recorded By Document 04/13/25 13:19 ML [id number] 04/13/25 13:20 ML 04/13/25 13:19 Wound Center Nurse 1 Right Calf (cm) 30 Right Ankle (cm) 26.5 Left Calf (cm) 35 Left Ankle (cm) 30 WC - Nurse 2 - General Ulcer CM Notes Start: 04/13/25 13:18 Freq: Status: Active Protocol: Activity Type Activity Date Activity User E-sign Co-sign Detail Recorded Client Recorded Date Recorded By Document 04/13/25 13:25 GM [id number] 04/13/25 13:26 GM 04/13/25 13:25 Pain Scale: 0-10 Numeric Is Patient Pain Free? Yes - Nurse 3 - General Ulcer D/C NN Start: 04/13/25 13:18 Freq: Status: Active Protocol: Activity Type Activity Date Activity User E-sign Co-sign Detail Recorded Client Recorded Date Recorded By Document 04/13/25 13:38 ML [id number] 04/13/25 13:38 ML 04/13/25 13:38 Wound Care Center Nurse 3 BLE -Multi-Layered Wrap Application Multi-Layer Comp - Bilat ($ ) -Multi-Layer Compression Bilat (Qty 1 applied) Pain Scale: 0-10 Numeric Is Patient Pain Free? Yes Assessment/Plan Assessment/Plan (1) Lymphedema: CODE(S): I89.0 - Lymphedema, not elsewhere classified PLAN: Plan Will continue with 3M wraps changed twice weekly for management of his bilateral lower extremity edema. I advise elevation of his legs at or above the level of his heart at all times of rest, periodic exercise (ambulation or calf pumps) throughout the day with avoidance of prolonged idle sitting/standing, and use of his lymphedema pumps 2-3 times daily for 60 minutes at a time if possible. I also recommend applying lotion such as Eucerin with Urea nightly to the bilateral lower legs and feet. [facility] will continue to provide the wrap changes on a weekly basis. He will return to see me in 4 weeks, sooner as needed.
== END 2025-04-28 23:59 | disposition home or self-care (01) ==
LOC: WC 13:03
PROVIDERS: PCP Internal Medicine; Referring Provider Physician Assistant; Visit Provider Physician Assistant
DX: I89.0 Lymphedema, not elsewhere classified (principal); R60.0 Localized edema; I10 Essential (primary) hypertension
CPT/HCPCS: 29581; 99213; G0463

== ENCOUNTER 2025-06-01 12:57 | Outpatient (RCR) | payer MEDICARE, MEDICAID, SELFPAY ==
[2025-06-01 13:18] VITALS: BP 140/88; PULSE 104; RESP 16; TEMP 36.5
--- NOTE | 2025-06-01 15:16 | PCM.WC.PN ---
History of Present Illness Date of Service: 06/01/25 Chief Complaint: Bilateral lower extremity edema History of Wound: KENTON RYAN, is a 59 M who presents today for evaluation of significant lower extremity edema. He is known to me from the vascular surgery office as well as prior visits here. Last time he was here, he was treated with a few months of compression wraps to get his edema controlled to the point he could apply his zippered compression stockings on his own. He has been wearing his zippered 20-30mmHg compression stockings daily. He report he has been using his lymphedema pumps twice daily. He states he has been elevating his legs at all times of rest. He generally eats pre-made meals with unclear sodium content; but otherwise, reports a fair diet focused on protein and vegetables and stays away from junk food. He denies any other associated symptoms with his edema such as chest pain, increased SOB with activity or lying down. Recall that he has tried CircAid's in the past and he has limited left upper extremity mobility which makes these difficult to put on. At present, no wounds or weeping areas; however, he does have intermittent episodes of fluid-filled blisters which rupture and lead to wounds along with weeping. He does have skin thickening, skin flaking/dry skin, and some chronic red discoloration. Since his last visit, [facility] has been in place and have been applying the 3M wraps for compression twice weekly. This has helped significantly in the management of his edema overally. 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 Subjective Subjective He received the farrow wraps that were ordered and these were applied last week at a nurse visit. He has a new home health aid, and they reapplied them throughout the week. His swelling looks improved. He reports the farrow wraps were comfortable. Seemed to go on alright with assistance. No new concerns. Objective Data Objective Data Vital Signs: Vital Signs Temp Pulse Resp BP O2 Del Method 97.7 F L 104 H 16 140/88 H Room Air 06/01/25 13:18 06/01/25 13:18 06/01/25 13:18 06/01/25 13:18 06/01/25 13:18 Oxygen Delivery Method Room Air Charges/Coding Visit Charges Office Visits / Consults: 73746 OV L3 Est 20min Physical Exam Narrative Const General: cooperative, comfortable and no acute distress Orientation: alert, awake and oriented x3 HENMT Head: normocephalic and atraumatic Ears: hearing grossly normal bilaterally and external ears normal Nose: external nose normal Eyes General: appearance normal, both eyes and all related structures EOM: EOM intact bilaterally Neck Neck: normal visual inspection and trachea midline Resp Effort & Inspection: normal respiratory effort, able to speak in complete sentences, no grunting, not labored, no respiratory distress and no retractions Auscultation: clear to auscultation bilaterally Cardio Rate: regular rate Rhythm: regular rhythm Skin General: no rashes or lesions noted and dry skin Trauma: no lacerations or abrasions Wounds: no wounds Neuro General: moves all extremities and no focal motor deficits Cranial Nerves: CN's II-XI intact bilaterally Speech: speech normal Extremities Lower Extremity Edema: Right Ankle: 25 cm Right Calf: 33 cm Left Ankle: 26 cm Left Calf: 33.5 cm Psych Mental Status: mental status grossly normal Mood: congruent mood Affect: normal affect Speech and Movement: speech and movement normal Attitude: cooperative Debridement Note Debridement Note No debridement was completed: No debridement was completed today Post-Debridement Measurements and Additional Note: Post-Debridement Measurements/Treatment - Nurse 1 - General Ulcer Assessment Start: 06/01/25 13:18 Freq: Status: Active Protocol: VICENTE Activity Type Activity Date Activity User E-sign Co-sign Detail Recorded Client Recorded Date Recorded By Document 06/01/25 13:18 [id number] 06/01/25 13:24 06/01/25 13:18 - Today's Visit Information Type of service Follow-up Visit (Physician/LITIGATION COORDINATOR ) Arrival Mode Ambulatory Patient Identification Verified (Name & Yes ) Patient Requires Transmission-Based No Precautions Safety Precautions Fall Prevention Vital Signs Temperature (97.8 F-99.1 F) 97.7 F L Temperature Source Temporal Pulse Rate (60-100) 104 H Pulse Location Monitor Respiratory Rate (12-18) 16 Respiratory rate source Observation Oxygen Delivery Method Room Air Blood Pressure (90/60-120/80) 140/88 H Blood Pressure Mean (mm Hg) 105 Source Monitor Position Sitting Blood Pressure Location Left Arm History Since Last Visit- (Skip if this is Patient's initial visit) Have you changed medications since your No last visit? Any new allergies or adverse reactions No Had a fall/change in ADL's that may No increase risk of falls Have you been in the hospital since your No last visit? Has dressing in place as prescribed Yes Has compression in place as prescribed Yes Has offloadiing in place as prescribed N/A Experienced any changes in pain level or No management Left Footwear Regular Shoe Right Footwear Regular Shoe Pain Scale: 0-10 Numeric Is Patient Pain Free? Yes - Nurse 1 - General Ulcer Measurement Start: 06/01/25 13:18 Freq: Status: Active Protocol: Activity Type Activity Date Activity User E-sign Co-sign Detail Recorded Client Recorded Date Recorded By Document 06/01/25 13:24 [id number] 06/01/25 13:25 06/01/25 13:24 Wound Center Nurse 1 Point of measurement (cm from the medial 33.5 instep) Point of Measurement (cm from the medial 25 instep) Point of measurement (cm from the medial 33 instep) Point of Measurement (cm from the medial 26 instep) - Nurse 2 - General Ulcer CM Notes Start: 06/01/25 13:18 Freq: Status: Active Protocol: Activity Type Activity Date Activity User E-sign Co-sign Detail Recorded Client Recorded Date Recorded By Document 06/01/25 13:35 [id number] 06/01/25 13:37 06/01/25 13:35 Pain Scale: 0-10 Numeric Is Patient Pain Free? Yes - Nurse 3 - General Ulcer D/C NN Start: 06/01/25 13:18 Freq: Status: Active Protocol: Activity Type Activity Date Activity User E-sign Co-sign Detail Recorded Client Recorded Date Recorded By Document 06/01/25 13:44 [id number] 06/01/25 13:44 06/01/25 13:44 Is Patient Pain Free? Yes WC - Visit Discharge Discharge Condition Stable Ambulatory Status Ambulatory Transportation Private Auto Assessment/Plan Assessment/Plan (1) Lymphedema: CODE(S): I89.0 - Lymphedema, not elsewhere classified PLAN: Plan He presented to the wound center today along with his sister, Marika, and new home health aide. He had farrow wraps with him. His lower extremity edema is significantly improved this visit compared to last. They had applied farrow wraps appropriately and he is tolerating well. At this time, with farrow wraps in place, patient will be discharged from the wound center. He is to continue to wear the farrow wraps daily, to use his lymphedema pumps daily, to elevate his legs at all times of rest, and to avoid prolonged idle sitting/standing. He still receives PT/OT at home but not just for his legs, I believe I have been signing these orders in general but this will need to transition to his PCP as he is being discharged, his sister Marika acknowledged understanding. He will return as needed.
== END 2025-06-01 15:46 | disposition home health service (06) ==
LOC: WC 12:57
PROVIDERS: PCP Internal Medicine; Referring Provider Physician Assistant; Visit Provider Physician Assistant
DX: I89.0 Lymphedema, not elsewhere classified (principal); I10 Essential (primary) hypertension; F89 Unspecified disorder of psychological development; Z87.74 Personal history of (corrected) congenital malformations of heart and circulatory system; Z98.890 Other specified postprocedural states
CPT/HCPCS: 99213; G0463